=== PATIENT | female | born 1995 | race Caucasian/White ===

== ENCOUNTER 2020-10-04 23:27 | Emergency (ER) | payer MEDICAID, SELFPAY ==
[2020-10-05 00:01] VITALS: BP 122/66; PULSE 77; RESP 18; TEMP 35.7; O2SAT 99; BMI 45.1
[2020-10-05 00:06] VITALS: BP 122/66; PULSE 88; RESP 18; TEMP 35.8; O2SAT 99
[2020-10-05 01:04] LABS: Basophils Absolute Auto 0.1 X10*3/uL (0.0-0.2); Basophils Percent Auto 0.7 % (0-2); Eosinophils Absolute Auto 0.7 X10*3/uL (0.0-0.4); Eosinophils Percent Auto 4.1 % (0-4); Hematocrit 41.5 % (37-47); Hemoglobin 13.4 g/dl (12.0-16.0); Imm Gran Abs Auto 0.05 X10*3/uL (0.00-0.03); Imm Gran Pct Auto 0.3 % (0.0-0.4); Lymphocytes Absolute Auto 5.5 X10*3/uL (1.2-4.9); Lymphocytes Percent Auto 30.4 % (20-40); MANUAL DIFF FLAG SCAN; Mean Corpuscular HGB Conc 32.3 g/dl (31.0-35.0); Mean Corpuscular Hemoglobin 27.5 pg (27.0-33.0); Mean Corpuscular Volume 85.2 fL (80-98); Mean Platelet Volume 10.5 fL (9.4-12.3); Monocytes Absolute Auto 1.5 X10*3/uL (0.1-1.2); Monocytes Percent Auto 8.1 % (2-11); Neutrophils Absolute Auto 10.1 X10*3/uL (2.0-8.3); Neutrophils Percent Auto 56.4 % (45-73); Platelet Count 364 X10*3/uL (160-400); Red Blood Count 4.87 X10*6/uL (4.20-5.50); Red Cell Distribution Width 12.5 % (11.0-16.0); SCAN SMEAR FLAG 1
[2020-10-05 01:25] LABS: Glucose Urine UA NEG (NEG); Leukocyte Esterase Urine TRACE (NEG); Nitrite Urine NEG (NEG); Specific Gravity - Urine >= 1.030 (1.005-1.025); Urine Blood NEG (NEG); Urine Ketones NEG (NEG); Urine Protein NEG (NEG-TRACE)
[2020-10-05 01:27] LABS: Alanine Aminotransferase 19 U/L (0-31); Albumin Level 3.9 g/dL (3.5-5.0); Alkaline Phosphatase 56 U/L (39-117); Anion Gap 10 (12-20); Aspartate Amino Transferase 12 U/L (5-31); Bilirubin Direct < 0.2 mg/dL (0.0-0.5); Bilirubin Total 0.2 mg/dL (0.0-1.0); Blood Urea Nitrogen 14 mg/dL (9-16); Calcium 9.1 mg/dL (8.4-10.2); Carbon Dioxide 29 mmol/L (22-29); Chloride 104 mmol/L (96-108); Creatinine Clr Calc Pharmacy 130.9; Estimated Glomerular Filt Rate > 60; Glucose Random 96 mg/dL (60-115); Lipase 23 U/L (8-78); Potassium 4.3 mmol/l (3.3-5.1); SLIDE REVIEW VERIFIED; Sodium 139 mmol/L (135-145); Total Protein 7.1 g/dL (6.5-8.0)
[2020-10-05 01:28] LABS: Appearance Urine HAZY; Color Urine YELLOW; UPreg QC Valid YES; Urine Pregnancy NEGATIVE (NEGATIVE)
[2020-10-05 01:32] LABS: Bacteria Urine 2+ /LPF; RBC Urine 0 /HPF (0); Squamous Epithelial Cell Urine 2+ /LPF; WBC Urine 50-75 /HPF (0-4)
--- NOTE | 2020-10-05 01:51 | XR_ITS ---
EXAMINATION: XR CHEST CLINICAL INFORMATION: Right lower pain COMPARISON: None TECHNIQUE: 2 views of the chest were obtained. FINDINGS: The lungs are well expanded. There is no focal consolidation, edema, or effusion. No pneumothorax. The cardiomediastinal silhouette is within normal limits. No acute osseous abnormality. XR/XR chest 2V IMPRESSION: No acute pulmonary finding.
--- NOTE | 2020-10-05 02:38 | ED_ITS ---
HPI - Back Pain/Injury General Chief Complaint: Back Pain/Injury Stated Complaint: Back pain Time Seen by Provider: 10/05/20 00:28 Source: patient Mode of arrival: ambulatory History of Present Illness HPI Narrative: 25-year-old female with right-sided back pain for the past 2-3 days. Denies urinary symptoms denies fevers or chills denies nausea or vomiting. Patient states pain is intermittent however sometimes dispositional. Denies vaginal bleeding or discharge MD elicited complaint: back pain Onset (ago): day(s) Severity: moderate Related Data Previous Rx's Medication Instructions Recorded levofloxacin 750 mg PO DAILY 7 Days #7 tab 10/05/20 naproxen [Naprosyn] 500 mg PO BID PRN #10 tab 10/05/20 ondansetron 4 mg PO BID PRN 4 Days #8 tab 10/05/20 Allergies Allergy/AdvReac Type Severity Reaction Status Date / Time No Known Allergies Allergy Verified 10/05/20 00:00 [No Known Allergies*] Review of Systems Review of Systems: Constitutional : No Weight loss, No Fever, No Chills, No Night Sweats, No Fatigue, No Malaise ENT/Mouth : No Hearing loss, No Ear Pain, No Nasal Congestion, No Sinus Pain, No Hoarseness, No sore throat, No Rhinorrhea, No Swallowing Difficulty Eyes: No Eye Pain, No Swelling, No Redness, No Foreign Body, No Discharge, No Vision Changes Cardiovascular : No Chest Pain, No SOB, No Dyspnea on Exertion, No Orthopnea, No Edema, No Palpitations Respiratory : No Cough, No Sputum, No Wheezing, No Smoke Exposure, No Dyspnea Gastrointestinal : No Nausea, No Vomiting, No Diarrhea, No Constipation, No abdominal Pain, No Hematochezia, No Melena Genitourinary : no irregular bleeding, No Dysuria, No Urinary Frequency, No Hematuria, No Urinary Incontinence, No Urgency, No Flank Pain, No Urinary Flow Changes, No Hesitancy Back: Right-sided tenderness CVA Musculoskeletal : No joint pain, No Myalgias, No Joint Swelling Skin : No Skin Lesions, No rash Neuro : No Weakness, No Numbness, No Paresthesias, No Loss of Consciousness, No Dizziness, No Headache Psych : No Anxiety/Panic, No Depression, No SI/HI/AH/VH, No Social Issues, Heme/Lymph: No Bruising, No Bleeding,No Lymphadenopathy Endocrine : No Polyuria, No Polydipsia, No Temperature Intolerance COUNTS INCLUDE 234 BEDS AT THE [facility] Past Medical History Medical History No known health problems Family History Family History (Updated 10/05/20 @ 02:47 by Baldo Sprague DO) Other Family history non-contributory Social History Social History Alcohol intake: never Smoking Status: Current every day smoker Use of substances other than those prescribed or required for medical reasons: No Advance Directives: No Physical Exam Vital Signs: Vital Signs: Last Vital Signs Temp 96.4 F L 10/05/20 00:06 Pulse 88 10/05/20 00:06 Resp 18 10/05/20 00:06 BP 122/66 10/05/20 00:06 Pulse Ox 99 10/05/20 00:06 Body Mass Index 45.1 Vital signs reviewed Appearance: Alert. Oriented X3. No acute distress. Eyes: Pupils equal, round and reactive to light. ENT: Pharynx normal. Neck: Normal inspection. Neck supple. No lymph nodes noted. No crepitus CVS: Normal heart rate and rhythm. Pulses normal. Normal S1 and S2 Respiratory: No respiratory distress. Breath sounds normal. No Wheezing. No rales Abdomen: Soft and nontender. No rigidity. No distention. good BS x4 Skin: Skin warm and dry. Normal skin color. Normal skin turgor. Extremities: No lower extremity edema. Neurovascular intact to all extremities. No Lacerations. No Rash Neuro: Oriented X 3. No motor deficit. No sensory deficit. Moving all extermities. No slurred speech. Back: Positive CVA tenderness on the right. No abscess no ecchymosis. No erythema Course Course Course Narrative: Patient tolerating p.o. intake no fevers no chills nausea nausea no vomiting while in the emergency department MDM - Back Pain/Injury MDM Narrative Medical decision making narrative: 25-year-old female with right flank pain positive urine for UTI and leukocytosis. Patient looks very well tolerating p.o. so on phone sitting up bedside. I discussed with patient need for antibi otics patient states wants to go home. Patient looks well however I did describe reasons to return to the emergency department. Lab Data Attestation: I reviewed the patient's lab results. Result diagrams: 10/05/20 00:55 10/05/20 00:55 Labs: Lab Results 10/05/20 10/05/20 10/05/20 Range/Units 00:55 00:55 00:55 WBC 18.0 H (4.8-10.8) X10*3/uL RBC 4.87 (4.20-5.50) X10*6/uL Hgb 13.4 (12.0-16.0) g/dl Hct 41.5 (37-47) % MCV 85.2 (80-98) fL MCH 27.5 (27.0-33.0) pg MCHC 32.3 (31.0-35.0) g/dl RDW 12.5 (11.0-16.0) % Plt Count 364 (160-400) X10*3/uL MPV 10.5 (9.4-12.3) fL Immature Gran % (Auto) 0.3 (0.0-0.4) % Neut % (Auto) 56.4 (45-73) % Lymph % (Auto) 30.4 (20-40) % [place] % (Auto) 8.1 (2-11) % Eos % (Auto) 4.1 H (0-4) % Baso % (Auto) 0.7 (0-2) % Lymph # (Auto) 5.5 H (1.2-4.9) X10*3/uL [place] # (Auto) 1.5 H (0.1-1.2) X10*3/uL Eos # (Auto) 0.7 H (0.0-0.4) X10*3/uL Baso # (Auto) 0.1 (0.0-0.2) X10*3/uL Abs Immat Gran (auto) 0.05 H (0.00-0.03) X10*3/uL Absolute Neuts (auto) 10.1 H (2.0-8.3) X10*3/uL Absolute Nucleated RBC 0.000 (0.0-0.012) X10*3/uL Nucleated RBC % (auto) 0.0 (0.0-0.2) /100WBC Smear Tech's Comments VERIFIED Sodium 139 (135-145) mmol/L Potassium 4.3 (3.3-5.1) mmol/l Chloride 104 (96-108) mmol/L Carbon Dioxide 29 (22-29) mmol/L Anion Gap 10 L (12-20) BUN 14 (9-16) mg/dL Creatinine 0.88 (0.5-1.4) mg/dL Estim Creat Clear Calc 130.9 Estimated GFR > 60 Random Glucose 96 (60-115) mg/dL Calcium 9.1 (8.4-10.2) mg/dL Total Bilirubin 0.2 (0.0-1.0) mg/dL Direct Bilirubin < 0.2 (0.0-0.5) mg/dL AST 12 (5-31) U/L ALT 19 (0-31) U/L Alkaline Phosphatase 56 (39-117) U/L Total Protein 7.1 (6.5-8.0) g/dL Albumin 3.9 (3.5-5.0) g/dL Lipase 23 (8-78) U/L Urine Color YELLOW Urine Appearance HAZY Urine pH 6.0 (5.0-8.0) Ur Specific [place] >= 1.030 H (1.005-1.025) Urine Protein NEG (NEG-TRACE) MG/DL Urine Glucose (UA) NEG (NEG) MG/DL Urine Ketones NEG (NEG) MG/DL Urine Blood NEG (NEG) Urine Nitrite NEG (NEG) Ur Leukocyte Esterase TRACE H (NEG) Urine RBC 0 (0) /HPF Urine WBC 50-75 H (0-4) /HPF Ur Squamous Epith Cells 2+ /LPF Urine Bacteria 2+ /LPF Urine Test NEGATIVE (NEGATIVE) Discharge Plan Discharge Clinical Impression: Pyelonephritis Patient Disposition: Home, Self-Care Instructions: Kidney Infection (ED) Additional Instructions: Thank you for visiting the emergency department today. If your symptoms worsen or do not resolve completely please return to the emergency department immediately or call 911. if he have any questions please call your primary care physician Prescriptions: New levofloxacin 750 mg tablet 750 mg PO DAILY 7 Days Qty: 7 RF: 0 ondansetron 4 mg tablet,disintegrating 4 mg PO BID PRN (Reason: nausea and vomiting) 4 Days Qty: 8 RF: 0 naproxen [Naprosyn] 500 mg tablet 500 mg PO BID PRN (Reason: pain) Qty: 10 RF: 0 Referrals: [facility] [Provider Group] - 2 days
[2020-10-05] MEDS: levoFLOXacin 750 MG TABLET PO (02:59)
== END 2020-10-05 03:03 | disposition home or self-care (01) ==
PROVIDERS: Emergency Provider Emergency Medicine
DX: N10 Acute pyelonephritis (principal); F17.200 Nicotine dependence, unspecified, uncomplicated; Z71.6 Tobacco abuse counseling; Z79.899 Other long term (current) drug therapy
CPT/HCPCS: 36415; 71046; 80048; 80076; 81001; 81003; 81025; 83690; 85025; 87086; 87088; 87186; 99284

== ENCOUNTER 2022-04-27 21:56 | Emergency (ER) | payer OTHER, SELFPAY ==
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
[2022-04-27 22:00] VITALS: BP 149/87; PULSE 88; RESP 18; TEMP 36.8; O2SAT 99; BMI 46.7
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
== END 2022-04-28 00:37 | disposition home or self-care (01) ==
PROVIDERS: Emergency Provider Emergency Medicine
DX: S80.01XA Contusion of right knee, initial encounter (principal); V43.52XA Car driver injured in collision with other type car in traffic accident, initial encounter; M54.50 Low back pain, unspecified; Y93.89 Activity, other specified; Y92.414 Local residential or business street as the place of occurrence of the external cause; Y99.9 Unspecified external cause status
CPT/HCPCS: 73560; 99283

== ENCOUNTER 2022-11-02 12:27 | Emergency (ER) | payer MEDICAID, SELFPAY ==
--- NOTE | ~2022-11-02 | XR_ITS ---
EXAMINATION: XR CHEST CLINICAL INFORMATION: Cough. Pneumonia. COMPARISON: 10/05/2020 TECHNIQUE: Frontal view of the chest was obtained. FINDINGS: The lungs are well expanded. There is no focal consolidation, edema, or effusion. No pneumothorax. The cardiomediastinal silhouette is within normal limits. No acute osseous abnormality. XR/XR chest 1V IMPRESSION: Clear lungs.
[2022-11-02 12:55] VITALS: BP 153/83; PULSE 86; RESP 20; TEMP 37.3; O2SAT 99; BMI 46.7
--- NOTE | 2022-11-02 13:01 | ED.GENADULT ---
HPI - General Adult General Chief complaint: Upper Respiratory Symptoms <ROSA Leon Last Filed: 11/06/22 12:30> Stated complaint: quest respit infection, feels faint when coughing <ROSA Leon Last Filed: 11/06/22 12:30> Time Seen by Provider: 11/02/22 14:14 <ROSA Leon - Last Filed: 11/06/22 12:30> Source: patient <ROSA Veloz Last Filed: 11/02/22 15:59> Mode of arrival: ambulatory <ROSA Veloz Last Filed: 11/02/22 15:59> Limitations: no limitations <ROSA Veloz Last Filed: 11/02/22 15:59> History of Present Illness HPI narrative: 27-year-old female presenting to the ED with complaints of subjective fever/chills/fatigue/ malaise, cough nonproductive with chest pain / tightness with shortness of breath for the past 3 days worse today. She denies any recent travel or sick contacts, measured fevers, dizziness, neck pain /stiffness, headaches, nasal congestion /rhinorrhea, sore throat, ear pain, dyspnea on exertion, orthopnea, palpitations, paresthesias, N/V/D, abd pain, back pain, lower extremity edema or calf tenderness, hypercoagulation disorder, history of DVT or PE, recent surgery, recent trauma, any estrogen uses or any other symptoms complaints or concerns at this time. <ROSA Veloz Last Filed: 11/02/22 15:59> MD complaint: Cough/shortness of breath /chest pain <ROSA Veloz Last Filed: 11/02/22 15:59> Onset (ago): day(s) (3) <ROSA Veloz Last Filed: 11/02/22 15:59> Related Data Home medications: Previous Rx's Medication Instructions Recorded levofloxacin 750 mg tablet 750 mg PO DAILY 7 days #7 tabs 10/05/20 naproxen 500 mg tablet (Naprosyn) 500 mg PO BID PRN pain #10 tabs 10/05/20 ondansetron 4 mg disintegrating 4 mg PO BID PRN nausea and 10/05/20 tablet vomiting 4 days #8 tabs albuterol sulfate 90 mcg/actuation 1 inh inhalation QID PRN shortness 11/02/22 aerosol inhaler of breath or wheezing #8.5 grams codeine 10 mg-guaifenesin 100 mg/5 5 ml PO Q6H PRN cold symptoms #120 11/02/22 mL oral liquid (Guaifenesin AC) mL oseltamivir 75 mg capsule (Tamiflu) 75 mg PO BID 5 days #10 caps 11/02/22 <ROSA Leon - Last Filed: 11/06/22 12:30> Allergies/adverse reactions: Allergies Allergy/AdvReac Type Severity Reaction Status Date / Time No Known Allergies Allergy Verified 04/27/22 22:00 [No Known Allergies*] <ROSA Leon - Last Filed: 11/06/22 12:30> Review of Systems Review of Systems: Constitutional : + subjective fevers/ chills/fatigue/malaise, No Weight loss, No Night Sweats ENT/Mouth : No Hearing loss, No Ear Pain, No Nasal Congestion, No Sinus Pain, No Hoarseness, No sore throat, No Rhinorrhea, No Swallowing Difficulty Eyes: No Eye Pain, No Swelling, No Redness, No Foreign Body, No Discharge, No Vision Changes Cardiovascular : + Chest Pain, + SOB, No Dyspnea on Exertion, No Orthopnea, No Edema, No Palpitations Respiratory : + Cough, No Sputum, No Wheezing, No Smoke Exposure, No Dyspnea Gastrointestinal : No Nausea, No Vomiting, No Diarrhea, No Constipation, No abdominal Pain, No Hematochezia, No Melena Genitourinary : no irregular bleeding, No Dysuria, No Urinary Frequency, No Hematuria, No Urinary Incontinence, No Urgency, No Flank Pain, No Urinary Flow Changes, No Hesitancy Musculoskeletal : No joint pain, + Myalgias, No Joint Swelling Skin : No Skin Lesions, No rash Neuro : No Weakness, No Numbness, No Paresthesias, No Loss of Consciousness, No Dizziness, No Headache Psych : No Anxiety/Panic, No Depression, No SI/HI/AH/VH, No Social Issues, Heme/Lymph: No Bruising, No Bleeding,No Lymphadenopathy Endocrine : No Polyuria, No Polydipsia, No Temperature Intolerance <ROSA Veloz - Last Filed: 11/02/22 15:59> Yes all other systems are reviewed and are negative <ROSA Veloz - Last Filed: 11/02/22 15:59> [facility] [place] Past Medical History Attestation statement: The following information was validated with the patient. <ROSA Veloz - Last Filed: 11/02/22 15:59> Source: old records reviewed and nursing notes reviewed <ROSA Veloz - Last Filed: 11/02/22 15:59> Medical History: Medical History No known health problems <ROSA Leon - Last Filed: 11/06/22 12:30> Family History Family History: Family History Other Family history non-contributory <ROSA Leon - Last Filed: 11/06/22 12:30> Social History Social History: Social History Alcohol intake: never Advance Directives: No <ROSA Leon - Last Filed: 11/06/22 12:30> Physical Exam ED Vital Signs: Vital Signs - 24 hr 11/02/22 12:55 Temperature 99.2 F Pulse Rate 86 Respiratory Rate 20 Blood Pressure 153/83 H Pulse Oximetry 99 Oxygen Delivery Method Room Air BMI result Body Mass Index 46.7 <ROSA Leon - Last Filed: 11/06/22 12:30> Vital Signs - 24 hr 11/02/22 12:55 Temperature 99.2 F Pulse Rate 86 Respiratory Rate 20 Blood Pressure 153/83 H Pulse Oximetry 99 Oxygen Delivery Method Room Air BMI result Body Mass Index 46.7 vital signs have been reviewed as normal and appeared to be correct. Blood pressure 151/83. Heart rate normal. Respiration rate normal. Temperature normal. Oxygen saturation normal. <ROSA Veloz - Last Filed: 11/02/22 15:59> Appearance: Alert. Oriented X3. No acute distress. Head: Normal external exam. Normocephalic. Atraumatic. Eyes: PERRLA. EOMI. Conjunctiva and sclera normal. Eyelids normal. ENT: EAC normal. TM's Normal. Pharynx normal. Uvula midline. Moist mucous membranes. No lesions/ulcerations or masses noted on the tongue. Normal voice. No trismus noted. No drooling noted. No muffled voice noted. Neck: Normal inspection. Neck supple. FROM. No adenopathy. Thyroid Normal. No tracheal deviation noted. No crepitus is noted. No meningeal signs. No neck mass noted. No signs of trauma noted. CVS: Normal heart rate and rhythm. Heart sound normal. Pulses normal throughout. No murmurs/rales/gallops. Respiratory: No respiratory distress. Painless inspiration. Breath sounds normal. No wheezes/rales/rhonchi noted. Chest nontender. No crepitus is noted. No signs of trauma noted. No accessory muscle usage noted or decreased air movement noted. No signs of trauma. Abdomen: Soft and nontender. Bowel sounds normal in all 4 quadrants. No distention noted. No organomegaly noted. No visible injury noted. Back: No CVA tenderness. Full range of motion noted. Nontender. No signs of trauma. Patient neuro intact bilaterally and distally on all 4 extremities. Patient's reflexes intact bilaterally and distally on all 4 extremities. No rashes/lesion/induration/fluctuance or signs of infection noted. Skin: Skin warm and dry. Normal skin color. Normal skin turgor. No rashes/lesions/lacerations noted. Extremities: No lower extremity edema. No calf tenderness is noted. Extremities exhibit normal range of motion and nontender. Neuro: Oriented X 3. No motor deficit. No sensory deficit. Reflexes normal. Normal steady gait. No focal neuro deficits noted. CN's II-XII intact bilaterally? Vascular: + radial pulses/+ 2 distal pedal pulses/+2 dorsalis pedis b/l. Normal cap refill. No cyanosis noted to upper extremity nails and lower extremity toes nails. <ROSA Veloz - Last Filed: 11/02/22 15:59> Course Course Course Narrative: RME: 27 yold female presents to the ED for coughing, congesions for the past 3 days. patient denies any leg swelling, calf pain, fever, chest pain, chest pain on inspiration, or shorntess of breath. patient states coughing white phelghm and coughing hard. Chest xray and SARS ordered. EKG ordered and labs due to patient stating near syncope from coughing so hard <ROSA Leon - Last Filed: 11/06/22 12:30> Reevaluation(s) Reevaluation #1: 27-year-old female presenting to the ED with complaints of subjective fever/chills/fatigue/ malaise, cough nonproductive with chest pain / tightness with shortness of breath for the past 3 days worse today. She denies any recent travel or sick contacts, measured fevers, dizziness, neck pain /stiffness, headaches, nasal congestion /rhinorrhea, sore throat, ear pain, dyspnea on exertion, orthopnea, palpitations, paresthesias, N/V/D, abd pain, back pain, lower extremity edema or calf tenderness, hypercoagulation disorder, history of DVT or PE, recent surgery, recent trauma, any estrogen uses or any other symptoms complaints or concerns at this time. PERC score negative. Labs obtained while the patient was in the waiting room and reveals a chronic leukocytosis of 13,000 at this time. Random glucose 122. Troponin is negative. UA within normal limits no evidence of UTI. Patient negative for . Chest x-ray negative. EKG normal sinus rhythm with ventricular rate of 87 with a normal NC interval normal QRS duration normal QT/ QTC interval. No acute ischemic change noted. No prior EKGs to compare to at this time. And pending COVID/RSV /flu swab. If negative patient most likely bronchitis. Will DC home with symptomatic treatment instructions return if any new or worsening symptoms follow up with primary care provider. Patient understands agrees with this plan. <ROSA Veloz - Last Filed: 11/02/22 15:59> Time: 15:50 <ROSA Veloz - Last Filed: 11/02/22 15:59> Medical Decision Making Lab Data MDM Lab Attestation statement: I reviewed the patient's lab results. <ROSA Veloz - Last Filed: 11/02/22 15:59> Result Diagrams: : 11/02/22 14:56 11/02/22 14:56 <ROSA Leon - Last Filed: 11/06/22 12:30> Labs: Lab Results 11/02/22 11/02/22 11/02/22 Range/Units 14:56 14:56 14:56 WBC 13.2 H (4.8-10.8) X10*3/uL RBC 5.15 (4.20-5.50) X10*6/uL Hgb 13.5 (12.0-16.0) g/dl Hct 43.3 (37.0-47.0) % MCV 84.1 (80.0-98.0) fL MCH 26.2 L (27.0-33.0) pg MCHC 31.2 (31.0-35.0) g/dl RDW 13.2 (11.0-16.0) % Plt Count 252 (160-400) X10*3/uL MPV 11.2 (9.4-12.3) fL Immature Gran % (Auto) 0.4 (0.0-0.4) % Neut % (Auto) 76.0 H (45-73) % Lymph % (Auto) 13.7 L (20-40) % [place] % (Auto) 7.2 (2-11) % Eos % (Auto) 1.7 (0-4) % Baso % (Auto) 1.0 (0-2) % Lymph # (Auto) 1.8 (1.2-4.9) X10*3/uL [place] # (Auto) 1.0 (0.1-1.2) X10*3/uL Eos # (Auto) 0.2 (0.0-0.4) X10*3/uL Baso # (Auto) 0.1 (0.0-0.2) X10*3/uL Abs Immat Gran (auto) 0.05 H (0.00-0.03) X10*3/uL Absolute Neuts (auto) 10.0 H (2.0-8.3) x10*3/uL Absolute Nucleated RBC 0.000 (0.0-0.012) X10*3/uL Nucleated RBC % (auto) 0.0 (0.0-0.2) /100WBC PT (10.0-13.1) SEC INR (0.9-1.1) APTT (26.0-36.4) SEC Sodium 141 (135-145) mmol/L Potassium 4.0 (3.3-5.1) mmol/L Chloride 105 (96-108) mmol/L Carbon Dioxide 27 (22-29) mmol/L Anion Gap 13 (12-20) BUN 11 (9-16) mg/dL Creatinine 0.80 (0.5-1.4) mg/dL Estim Creat Clear Calc 144.4 Estimated GFR > 60 Random Glucose 122 H (60-115) mg/dL Calcium 9.1 (8.4-10.2) mg/dL Total Bilirubin 0.2 (0.0-1.0) mg/dL AST 15 (5-31) U/L ALT 26 (0-31) U/L Alkaline Phosphatase 65 (39-117) U/L Troponin I High Sens (<3.5-17.0) ng/L Total Protein 7.2 (6.5-8.0) g/dL Albumin 3.9 (3.5-5.0) g/dL Urine Color Urine Appearance Urine pH (5.0-9.0) Ur Specific [place] (1.005-1.025) Urine Protein (Neg-Trace) mg/dL Urine Glucose (UA) (Negative) mg/dL Urine Ketones (Negative) mg/dL Urine Blood (Negative) Urine Nitrite (Negative) Ur Leukocyte Esterase (Negative) Urine Test (NEGATIVE) Influenza Type A (PCR) POSITIVE A (Negative) Influenza Type B (PCR) NEGATIVE (Negative) RSV RNA Qual (PCR) NEGATIVE (Negative) SARS-CoV-2 RNA (RT-PCR) NEGATIVE (Negative) 11/02/22 11/02/22 11/02/22 Range/Units 14:56 14:56 14:56 WBC (4.8-10.8) X10*3/uL RBC (4.20-5.50) X10*6/uL Hgb (12.0-16.0) g/dl Hct (37.0-47.0) % MCV (80.0-98.0) fL MCH (27.0-33.0) pg MCHC (31.0-35.0) g/dl RDW (11.0-16.0) % Plt Count (160-400) X10*3/uL MPV (9.4-12.3) fL Immature Gran % (Auto) (0.0-0.4) % Neut % (Auto) (45-73) % Lymph % (Auto) (20-40) % [place] % (Auto) (2-11) % Eos % (Auto) (0-4) % Baso % (Auto) (0-2) % Lymph # (Auto) (1.2-4.9) X10*3/uL [place] # (Auto) (0.1-1.2) X10*3/uL Eos # (Auto) (0.0-0.4) X10*3/uL Baso # (Auto) (0.0-0.2) X10*3/uL Abs Immat Gran (auto) (0.00-0.03) X10*3/uL Absolute Neuts (auto) (2.0-8.3) x10*3/uL Absolute Nucleated RBC (0.0-0.012) X10*3/uL Nucleated RBC % (auto) (0.0-0.2) /100WBC PT (10.0-13.1) SEC INR (0.9-1.1) APTT (26.0-36.4) SEC Sodium (135-145) mmol/L Potassium (3.3-5.1) mmol/L Chloride (96-108) mmol/L Carbon Dioxide (22-29) mmol/L Anion Gap (12-20) BUN (9-16) mg/dL Creatinine (0.5-1.4) mg/dL Estim Creat Clear Calc Estimated GFR Random Glucose (60-115) mg/dL Calcium (8.4-10.2) mg/dL Total Bilirubin (0.0-1.0) mg/dL AST (5-31) U/L ALT (0-31) U/L Alkaline Phosphatase (39-117) U/L Troponin I High Sens < 3.5 (<3.5-17.0) ng/L Total Protein (6.5-8.0) g/dL Albumin (3.5-5.0) g/dL Urine Color Yellow Urine Appearance Clear Urine pH 7.0 (5.0-9.0) Ur Specific [place] 1.020 (1.005-1.025) Urine Protein Negative (Neg-Trace) mg/dL Urine Glucose (UA) Negative (Negative) mg/dL Urine Ketones Negative (Negative) mg/dL Urine Blood Negative (Negative) Urine Nitrite Negative (Negative) Ur Leukocyte Esterase Negative (Negative) Urine Test NEGATIVE (NEGATIVE) Influenza Type A (PCR) (Negative) Influenza Type B (PCR) (Negative) RSV RNA Qual (PCR) (Negative) SARS-CoV-2 RNA (RT-PCR) (Negative) 11/02/22 Range/Units 15:21 WBC (4.8-10.8) X10*3/uL RBC (4.20-5.50) X10*6/uL Hgb (12.0-16.0) g/dl Hct (37.0-47.0) % MCV (80.0-98.0) fL MCH (27.0-33.0) pg MCHC (31.0-35.0) g/dl RDW (11.0-16.0) % Plt Count (160-400) X10*3/uL MPV (9.4-12.3) fL Immature Gran % (Auto) (0.0-0.4) % Neut % (Auto) (45-73) % Lymph % (Auto) (20-40) % [place] % (Auto) (2-11) % Eos % (Auto) (0-4) % Baso % (Auto) (0-2) % Lymph # (Auto) (1.2-4.9) X10*3/uL [place] # (Auto) (0.1-1.2) X10*3/uL Eos # (Auto) (0.0-0.4) X10*3/uL Baso # (Auto) (0.0-0.2) X10*3/uL Abs Immat Gran (auto) (0.00-0.03) X10*3/uL Absolute Neuts (auto) (2.0-8.3) x10*3/uL Absolute Nucleated RBC (0.0-0.012) X10*3/uL Nucleated RBC % (auto) (0.0-0.2) /100WBC PT 11.6 (10.0-13.1) SEC INR 1.0 (0.9-1.1) APTT 30.0 (26.0-36.4) SEC Sodium (135-145) mmol/L Potassium (3.3-5.1) mmol/L Chloride (96-108) mmol/L Carbon Dioxide (22-29) mmol/L Anion Gap (12-20) BUN (9-16) mg/dL Creatinine (0.5-1.4) mg/dL Estim Creat Clear Calc Estimated GFR Random Glucose (60-115) mg/dL Calcium (8.4-10.2) mg/dL Total Bilirubin (0.0-1.0) mg/dL AST (5-31) U/L ALT (0-31) U/L Alkaline Phosphatase (39-117) U/L Troponin I High Sens (<3.5-17.0) ng/L Total Protein (6.5-8.0) g/dL Albumin (3.5-5.0) g/dL Urine Color Urine Appearance Urine pH (5.0-9.0) Ur Specific [place] (1.005-1.025) Urine Protein (Neg-Trace) mg/dL Urine Glucose (UA) (Negative) mg/dL Urine Ketones (Negative) mg/dL Urine Blood (Negative) Urine Nitrite (Negative) Ur Leukocyte Esterase (Negative) Urine Test (NEGATIVE) Influenza Type A (PCR) (Negative) Influenza Type B (PCR) (Negative) RSV RNA Qual (PCR) (Negative) SARS-CoV-2 RNA (RT-PCR) (Negative) <ORSA Leon - Last Filed: 11/06/22 12:30> Lab Results 11/02/22 11/02/22 11/02/22 Range/Units 14:56 14:56 14:56 WBC 13.2 H (4.8-10.8) X10*3/uL RBC 5.15 (4.20-5.50) X10*6/uL Hgb 13.5 (12.0-16.0) g/dl Hct 43.3 (37.0-47.0) % MCV 84.1 (80.0-98.0) fL MCH 26.2 L (27.0-33.0) pg MCHC 31.2 (31.0-35.0) g/dl RDW 13.2 (11.0-16.0) % Plt Count 252 (160-400) X10*3/uL MPV 11.2 (9.4-12.3) fL Immature Gran % (Auto) 0.4 (0.0-0.4) % Neut % (Auto) 76.0 H (45-73) % Lymph % (Auto) 13.7 L (20-40) % [place] % (Auto) 7.2 (2-11) % Eos % (Auto) 1.7 (0-4) % Baso % (Auto) 1.0 (0-2) % Lymph # (Auto) 1.8 (1.2-4.9) X10*3/uL [place] # (Auto) 1.0 (0.1-1.2) X10*3/uL Eos # (Auto) 0.2 (0.0-0.4) X10*3/uL Baso # (Auto) 0.1 (0.0-0.2) X10*3/uL Abs Immat Gran (auto) 0.05 H (0.00-0.03) X10*3/uL Absolute Neuts (auto) 10.0 H (2.0-8.3) x10*3/uL Absolute Nucleated RBC 0.000 (0.0-0.012) X10*3/uL Nucleated RBC % (auto) 0.0 (0.0-0.2) /100WBC PT (10.0-13.1) SEC INR (0.9-1.1) APTT (26.0-36.4) SEC Sodium 141 (135-145) mmol/L Potassium 4.0 (3.3-5.1) mmol/L Chloride 105 (96-108) mmol/L Carbon Dioxide 27 (22-29) mmol/L Anion Gap 13 (12-20) BUN 11 (9-16) mg/dL Creatinine 0.80 (0.5-1.4) mg/dL Estim Creat Clear Calc 144.4 Estimated GFR > 60 Random Glucose 122 H (60-115) mg/dL Calcium 9.1 (8.4-10.2) mg/dL Total Bilirubin 0.2 (0.0-1.0) mg/dL AST 15 (5-31) U/L ALT 26 (0-31) U/L Alkaline Phosphatase 65 (39-117) U/L Troponin I High Sens (<3.5-17.0) ng/L Total Protein 7.2 (6.5-8.0) g/dL Albumin 3.9 (3.5-5.0) g/dL Urine Color Urine Appearance Urine pH (5.0-9.0) Ur Specific [place] (1.005-1.025) Urine Protein (Neg-Trace) mg/dL Urine Glucose (UA) (Negative) mg/dL Urine Ketones (Negative) mg/dL Urine Blood (Negative) Urine Nitrite (Negative) Ur Leukocyte Esterase (Negative) Urine Test (NEGATIVE) Influenza Type A (PCR) POSITIVE A (Negative) Influenza Type B (PCR) NEGATIVE (Negative) RSV RNA Qual (PCR) NEGATIVE (Negative) SARS-CoV-2 RNA (RT-PCR) NEGATIVE (Negative) 11/02/22 11/02/22 11/02/22 Range/Units 14:56 14:56 14:56 WBC (4.8-10.8) X10*3/uL RBC (4.20-5.50) X10*6/uL Hgb (12.0-16.0) g/dl Hct (37.0-47.0) % MCV (80.0-98.0) fL MCH (27.0-33.0) pg MCHC (31.0-35.0) g/dl RDW (11.0-16.0) % Plt Count (160-400) X10*3/uL MPV (9.4-12.3) fL Immature Gran % (Auto) (0.0-0.4) % Neut % (Auto) (45-73) % Lymph % (Auto) (20-40) % [place] % (Auto) (2-11) % Eos % (Auto) (0-4) % Baso % (Auto) (0-2) % Lymph # (Auto) (1.2-4.9) X10*3/uL [place] # (Auto) (0.1-1.2) X10*3/uL Eos # (Auto) (0.0-0.4) X10*3/uL Baso # (Auto) (0.0-0.2) X10*3/uL Abs Immat Gran (auto) (0.00-0.03) X10*3/uL Absolute Neuts (auto) (2.0-8.3) x10*3/uL Absolute Nucleated RBC (0.0-0.012) X10*3/uL Nucleated RBC % (auto) (0.0-0.2) /100WBC PT (10.0-13.1) SEC INR (0.9-1.1) APTT (26.0-36.4) SEC Sodium (135-145) mmol/L Potassium (3.3-5.1) mmol/L Chloride (96-108) mmol/L Carbon Dioxide (22-29) mmol/L Anion Gap (12-20) BUN (9-16) mg/dL Creatinine (0.5-1.4) mg/dL Estim Creat Clear Calc Estimated GFR Random Glucose (60-115) mg/dL Calcium (8.4-10.2) mg/dL Total Bilirubin (0.0-1.0) mg/dL AST (5-31) U/L ALT (0-31) U/L Alkaline Phosphatase (39-117) U/L Troponin I High Sens < 3.5 (<3.5-17.0) ng/L Total Protein (6.5-8.0) g/dL Albumin (3.5-5.0) g/dL Urine Color Yellow Urine Appearance Clear Urine pH 7.0 (5.0-9.0) Ur Specific [place] 1.020 (1.005-1.025) Urine Protein Negative (Neg-Trace) mg/dL Urine Glucose (UA) Negative (Negative) mg/dL Urine Ketones Negative (Negative) mg/dL Urine Blood Negative (Negative) Urine Nitrite Negative (Negative) Ur Leukocyte Esterase Negative (Negative) Urine Test NEGATIVE (NEGATIVE) Influenza Type A (PCR) (Negative) Influenza Type B (PCR) (Negative) RSV RNA Qual (PCR) (Negative) SARS-CoV-2 RNA (RT-PCR) (Negative) 11/02/22 Range/Units 15:21 WBC (4.8-10.8) X10*3/uL RBC (4.20-5.50) X10*6/uL Hgb (12.0-16.0) g/dl Hct (37.0-47.0) % MCV (80.0-98.0) fL MCH (27.0-33.0) pg MCHC (31.0-35.0) g/dl RDW (11.0-16.0) % Plt Count (160-400) X10*3/uL MPV (9.4-12.3) fL Immature Gran % (Auto) (0.0-0.4) % Neut % (Auto) (45-73) % Lymph % (Auto) (20-40) % [place] % (Auto) (2-11) % Eos % (Auto) (0-4) % Baso % (Auto) (0-2) % Lymph # (Auto) (1.2-4.9) X10*3/uL [place] # (Auto) (0.1-1.2) X10*3/uL Eos # (Auto) (0.0-0.4) X10*3/uL Baso # (Auto) (0.0-0.2) X10*3/uL Abs Immat Gran (auto) (0.00-0.03) X10*3/uL Absolute Neuts (auto) (2.0-8.3) x10*3/uL Absolute Nucleated RBC (0.0-0.012) X10*3/uL Nucleated RBC % (auto) (0.0-0.2) /100WBC PT 11.6 (10.0-13.1) SEC INR 1.0 (0.9-1.1) APTT 30.0 (26.0-36.4) SEC Sodium (135-145) mmol/L Potassium (3.3-5.1) mmol/L Chloride (96-108) mmol/L Carbon Dioxide (22-29) mmol/L Anion Gap (12-20) BUN (9-16) mg/dL Creatinine (0.5-1.4) mg/dL Estim Creat Clear Calc Estimated GFR Random Glucose (60-115) mg/dL Calcium (8.4-10.2) mg/dL Total Bilirubin (0.0-1.0) mg/dL AST (5-31) U/L ALT (0-31) U/L Alkaline Phosphatase (39-117) U/L Troponin I High Sens (<3.5-17.0) ng/L Total Protein (6.5-8.0) g/dL Albumin (3.5-5.0) g/dL Urine Color Urine Appearance Urine pH (5.0-9.0) Ur Specific [place] (1.005-1.025) Urine Protein (Neg-Trace) mg/dL Urine Glucose (UA) (Negative) mg/dL Urine Ketones (Negative) mg/dL Urine Blood (Negative) Urine Nitrite (Negative) Ur Leukocyte Esterase (Negative) Urine Test (NEGATIVE) Influenza Type A (PCR) (Negative) Influenza Type B (PCR) (Negative) RSV RNA Qual (PCR) (Negative) SARS-CoV-2 RNA (RT-PCR) (Negative) <ROSA Veloz - Last Filed: 11/02/22 15:59> Independent Interpretation Interpretation: Chest x-ray FINDINGS: The lungs are well expanded. There is no focal consolidation, edema, or effusion. No pneumothorax. The cardiomediastinal silhouette is within normal limits. No acute osseous abnormality. XR/XR chest 1V IMPRESSION: Clear lungs EKG normal sinus rhythm ventricular rate of 87 with a normal NC interval normal QRS duration normal QT/ QTC interval no acute ischemic change are noted. No prior EKGs to compare to at this time. <ROSA Veloz - Last Filed: 11/02/22 15:59> Critical Care Time Critical Care Time Critical Care Time: Yes <ROSA Veloz - Last Filed: 11/02/22 15:59> Total Critical Care Time: 60 <ROSA Veloz - Last Filed: 11/02/22 15:59> Attestation: I personally attest to this time spent taking care of the patient <ROSA Veloz - Last Filed: 11/02/22 15:59> Discharge Plan Discharge Clinical Impression: Influenza A <ROSA Leon Last Filed: 11/06/22 12:30> Patient Disposition: Home, Self-Care <ROSA Leon Last Filed: 11/06/22 12:30> Instructions: Influenza (ED), Droplet Precautions (ED) <ROSA Leon Last Filed: 11/06/22 12:30> Prescriptions: New oseltamivir [Tamiflu] 75 mg capsule 75 mg PO BID 5 Days Qty: 10 0RF albuterol sulfate 90 mcg/actuation HFA aerosol inhaler 1 inh inhalation QID PRN (Reason: shortness of breath or wheezing) Qty: 8.5 0RF codeine-guaifenesin [Guaifenesin AC] 10-100 mg/5 mL liquid 5 ml PO Q6H PRN (Reason: cold symptoms) Qty: 120 0RF No Action levofloxacin 750 mg tablet 750 mg PO DAILY 7 Days Qty: 7 0RF ondansetron 4 mg tablet,disintegrating 4 mg PO BID PRN (Reason: nausea and vomiting) 4 Days Qty: 8 0RF naproxen [Naprosyn] 500 mg tablet 500 mg PO BID PRN (Reason: pain) Qty: 10 0RF <ROSA Leon - Last Filed: 11/06/22 12:30> Referrals: Physician,None [Primary Care Provider] - ( follow-up with her primary care provider within the next 5 days) <ROSA Leon - Last Filed: 11/06/22 12:30> Stand Alone Forms: Work/School Release <ROSA Leon - Last Filed: 11/06/22 12:30> Interventions: ED Discharge Assessment Last Done: 11/02/22 16:44 <ROSA Leon - Last Filed: 11/06/22 12:30> Discharge Date/Time: 11/02/22 16:45 <ROSA Leon - Last Filed: 11/06/22 12:30>
--- NOTE | 2022-11-02 13:03 | ECG_ITS ---
Test Reason : SOB Blood Pressure : / mmHG Vent. Rate : 087 BPM Atrial Rate : 087 BPM P-R Int : 154 ms QRS Dur : 086 ms QT Int : 356 ms P-R-T Axes : 006 083 027 degrees QTc Int : 428 ms Normal sinus rhythm Normal ECG No previous ECGs available Referred By: Dion Fernandez Electronically Signed By:Jake Haas
--- OUTSIDE RECORDS SUMMARY | 2022-11-02 14:04 | XMS_ITS ---
:1995 Author Care Team Providers Name Role Phone LindyEdwinna Dakota Primary Care Provider Unavailable Allergies Code Code System Name Reaction Severity Status Onset NKDA ? Medications Name Status Start Date Stop Date ? ? amoxicillin 875 mg-potassium clavulanate 125 mg Completed ? 09/19/2021 tablet cephalexin 500 mg capsule Completed ? 2020 clindamycin HCl 150 mg capsule Completed ? 1 11/19/2020 dicloxacillin 500 mg capsule Completed ? 02/2021 erythromycin-benzoyl peroxide 3 %-5 % topical gel Completed ? 09/19/2021 APPLY ONCE TO TWICE DAILY TO FACE NEEDED hydroxyzine HCl 25 mg tablet Completed ? 12/2020 ibuprofen 600 mg tablet Completed ? 09/19/2012/01 (21) 1 mg-20 mcg tablet Completed 10/13/2021 01/30/2022 Keflex Completed ? 09/19/2021 linoleic acid-sunflower oil Completed ? 12/2020 Mibelas 24 Fe 1 mg-20 mcg (24)/75 mg (4) chewable tablet Active ? Not available CHEW 1 TABLET BY MOUTH EVERY DAY ondansetron 4 mg disintegrating tablet Active ? Not available TAKE 1 TABLET (4 MG TOTAL) BY MOUTH 3 ( THREE) TIMES A DAY NEEDED FOR NAUSEA FOR UP TO 7 DAYS. Completed ? 01/30/2022 Problems Name Status Onset Date Source ? Unknown 01/18/2021 ? Spinal Muscular Atrophy Unknown 02/15/2021 ? SARS-CoV-2 Active 02/28/2021 ? 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 Mastitis Associated with Active 09/18/2021 ? Procedures Date Name Performed by ? ? Shoulder Joint Surgery Information not a vailable Notes: 2016 left Results Lab Results Date Name Specimen Result Interpretation Description Value Range Status Address ? 08/29/2021 SARS CoV 2 RNA NASAL SWAB ? Sars Cov not not [facility]: (COVID-19), 2 [facility] , Respiratory [place] Specimen 08/22/2021 SARS CoV 2 RNA NASAL SWAB ? Sars Cov not not [facility]: (COVID-19), 2 RNA detected detected 7 0 [facility], track coach-PCR, Road , Respiratory [place] Specimen 08/15/2021 SARS CoV 2 RNA Nasopharyn Normal Sars Cov not not [facility] (COVID-19), geal 2 RNA detected detected D iagnostic QL, track coach-PCR, s- Respiratory Mar[place] oroug Specimen h Lab: [address] [place] [address], [place] 08/10/2021 SARS CoV 2 RNA NASAL SWAB ? Sars Cov not not [facility]: (COVID-19), 2 RNA detected detected 7 0 [facility], track coach-PCR, Road , Respiratory [place] Specimen 08/01/2021 Streptococcus VAG/REC ? Group B negative negative [facility]: [facility] ? ? V[facility]/REC ? Group B vaginal ? [facility]: Strep [address] [place] Source [facility] 06/06/2021 HIV 1+2 AB + SERUM ? HIV 1/2 non-react non-react [facility]: HIV 1 P24 Ag, Antigen merrick merrick 70 [facility], [facility] Serum 06/06/2021 RPR (Rapid SERUM ? T. 0.05 non-react [facility]: Plasma Pallidum non-react merrick S/co [address] [place] Reagin), Serum Ab merrcik S/co [facility] 06/06/2021 CBC W/ Auto WHOLE ? White 7.6 4.0-11.0 [facility]: Diff BLOOD Blood thou[facility]uL [facility] ? ? WHOLE Low Red 3.97 4.00-5.40 [facility] : BLOOD Blood mil/uL mil/uL 70 [facility] ? ? WHOLE ? Hemoglob 11.8 g/dL 11.7-15.7 [facility]: BLOOD in g/dL 70 [facility] ? ? WHOLE ? Hematocr 39.8 % 35.0-47.0 [facility]: BLOOD it % [address], [place] ? ? WHOLE ? Mean 100 fL 80-100 fL [facility] : BLOOD Corpuscul [address], [place] ? ? WHOLE ? Mean 29.7 pg 26.0-34.0 [facility]: BLOOD Corpuscul pg [address], Hemoglobi [facility] ? ? WHOLE Low Mean 29.6 g/dL 30.0-36.0 [facility]: BLOOD Corpuscul g/dL [address], Hemoglobi [facility] Concentra tion ? ? WHOLE ? Red Cell 13.0 % 11.5-14.5 [facility]: BLOOD Distribut % [address], [place] ? ? WHOLE ? Platelet 199 150-450 [facility]: BLOOD s thou/uL thou/uL [address], [place] ? ? WHOLE ? Mean 10.3 fL 9.4-12.5 [facility] : BLOOD Platelet fL [address], [place] ? ? WHOLE ? Neutroph 75.2 % ? [facility] : BLOOD il, [address], e [place] ? ? WHOLE ? Lymphocy 18.1 % ? [facility] : BLOOD te, [address], e [place] ? ? WHOLE ? Monocyte 4.7 % ? [facility] : BLOOD , [address], e [place] ? ? WHOLE ? Eosinoph 0.9 % ? [facility] : BLOOD il, [address], e [place] ? ? WHOLE ? Basophil 0.4 % ? [facility] : BLOOD , [address], e [place] ? ? WHOLE ? Neutroph 5.74 2.00-7.50 [facility]: BLOOD il, thou/uL thou/uL [address], [place] ? ? WHOLE Low Lymphocy 1.38 1.50-4.50 [facility]: BLOOD te, thou/uL thou/uL [address], [place] ? ? WHOLE ? Monocyte 0.36 0.20-1.50 [facility]: BLOOD , thou/uL thou/uL [address], [place] ? ? WHOLE ? Eosinoph 0.07 0.00-0.70 [facility]: BLOOD il, thou/uL thou/uL [address], [place] ? ? WHOLE ? Basophil 0.03 0.00-0.20 [facility]: BLOOD , thou/uL thou/uL [address], [place] ? ? WHOLE ? NRBC, 0.00 0.00-0.02 [facility] : BLOOD Absolute thou/uL thou/uL [address], [place] ? ? WHOLE ? NRBC, 0.0 % <5.0 % [facility]: BLOOD Percentag [address], [place] ? ? WHOLE ? Ig, 0.05 0.00-0.10 [facility] : BLOOD Absolute thou/uL thou/uL [address], [place] ? ? WHOLE ? Ig, 0.7 ? [facility]: BLOOD Percentag thou/uL [address], [place] 06/06/2021 Glucose SERUM ? Pwh 81 mg/dL <136 [facility]: Tolerance Glucose mg/dL [address], Gestation Road, Gestational, al Screen R [facility] 1-Hour 135 02/16/2021 Kit,fly ? Kit,miguel report ? Final [facility] ra will BE Hospital & sent Medical directly Center: from [facility] fly to [facility] office. Agapito valencia 02/16/2021 Genetic Normal Report negative ? Final Na enrrique: Screen, Summary [address], [place] ? ? Normal Spinal negative ? Final Fly: Muscular [address], [place] ? ? ? Panel see notes ? Final Fly: Notes [address], [place] ? ? ? Report see notes ? Final Fly : Note [address], [place] ? ? ? Footnote see notes ? Final Miguel ra: s [address], [place] 02/01/2021 Kit,fly ? Kit,miguel report ? Final [facility] ra will BE Hospital & sent Medical directly Center: from 114 fly to [facility]' , s office. Agapito valencia 02/01/2021 Chromosome Normal Report see notes ? Final Fly: 13+18+21+X+Y Summary 201 Aneuploidy, Indus trial Blood [address], [place] ? ? Normal Report see notes ? Final Fly : Note [address], [place] ? ? Normal Trisomy 62 ? Final Fly: 13 (0.02%) 201 Age-based Industr ial Risk Text Rd [address], [place] ? ? Normal Trisomy <1/10,000 ? Final Nater a: 13 Risk (<0.01%) [address], [place] ? ? Normal Trisomy low risk ? Final Fly : 13 Result [address], [place] ? ? Normal Trisomy 765 ? Final Fly: 18 (0.06%) 201 Age-based Industr ial Risk Text [address], [place] ? ? Normal Trisomy <1/10,000 ? Final Nater a: 18 Risk (<0.01%) [address], [place] ? ? Normal Trisomy low risk ? Final Fly : 18 Result [address], [place] ? ? Normal Trisomy 870 ? Final Fly: 21 (0.11%) 201 Age-based Industr ial Risk Text [address], [place] ? ? Normal Trisomy <1/10,000 ? Final Nater a: 21 Risk (<0.01%) [address], [place] ? ? Normal Trisomy low risk ? Final Fly : 21 Result [address], [place] ? ? Normal Monosomy 1/255 ? Final Fly: X (0.39%) 201 Age-based Industr ial Risk Text [address], [place] ? ? Normal Monosomy <1/10,000 ? Final Miguel ra: X Risk (<0.01%) [address], [place] ? ? Normal Monosomy low risk ? Final Nater a: X Result [address], [place] ? ? Normal 22Q11.2 11/13,000 ? Final Fly: Deletion [address], [place] Risk Text [place] ? ? Normal 22Q11.2 /,000 ? Final Fly: Deletion [address] Score [address], [place] Text [place] ? ? Normal 22Q11.2 low risk ? Final Fly : Deletion [address] Text [address], [place] ? ? Normal Triploid low risk ? Final Nater a: y Result [address], [place] ? ? ? Gender female ? Final Fly: of Fetus [address], [place] ? ? ? 6.8% ? Final Fly: Fraction [address], [place] ? ? ? Footnote see notes ? Final Miguel ra: s [address], [place] 02/01/2021 Genetic ABNORM Report positive ? Final Na enrrique: Screen, AL Summary [address], [place] ? ? ABNORM Spinal positive ? Final Fly: AL Muscular [address], [place] ? ? Normal Alpha-th negative ? Final Nater a: alassemia [address], [place] ? ? Normal Beta-hem negative ? Final Nater a: oglobinop [address], [place] ? ? Normal Andrews negative ? Final Fly : Disease [address], [place] ? ? Normal Cystic negative ? Final Fly: Fibrosis [address], [place] ? ? Normal Duchenne negative ? Final Nater a: /saleh [address], [place] ? ? Normal Familial negative ? Final Nater a: Dysautono [address], [place] ? ? Normal Fragile negative ? Final Fly : X [address], [place] ? ? Normal Galactos negative ? Final Nater a: emia [address], [place] ? ? Normal Gaucher negative ? Final Fly : Disease [address], [place] ? ? Normal Medium negative ? Final Fly: Chain [address] Acyl-coa [address], [place] Deficienc [place] y ? ? Normal Polycyst negative ? Final Nater a: ic Kidney 201 Disease, [address] al [address] Recessive [address], [place] n [place] ? ? Normal [place]-le negative ? Final Nater a: mli-opitz [address], [place] ? ? Normal Saleem-sach negative ? Final Nater a: s Disease [address], [place] ? ? ? Panel see notes ? Final Fly: Notes [address], [place] ? ? ? Report see notes ? Final Fly : Note [address], [place] ? ? ? Footnote see notes ? Final Miguel ra: s [address], [place] 01/18/2021 CBC W/ Auto WHOLE ? White 5.7 4.0-11.0 [facility]: Diff BLOOD Blood thou/uL thou/uL [facility] ? ? WHOLE ? Red 4.48 4.00-5.40 [facility] : BLOOD Blood mil/uL mil/uL 70 [facility] ? ? WHOLE ? Hemoglob 13.4 g/dL 11.7-15.7 Final hc Lab: BLOOD in g/dL 70 [facility] ? ? WHOLE ? Hematocr 42.4 % 35.0-47.0 [facility]: BLOOD it % 70 [facility] ? ? WHOLE ? Mean 95 fL 80-100 fL [facility] : BLOOD Corpuscul [address] [facility] ? ? WHOLE ? Mean 29.9 pg 26.0-34.0 [facility] b: BLOOD Corpuscul pg [address], Hemoglobi [facility] ? ? WHOLE ? Mean 31.6 g/dL 30.0-36.0 [facility]: BLOOD Corpuscul g/dL [address], Hemoglobi [facility] Concentra tion ? ? WHOLE ? Red Cell 12.3 % 11.5-14.5 [facility]: BLOOD Distribut % 70 [address] ion Width [facility] ? ? WHOLE ? Platelet 232 150-450 [facility]: BLOOD s thou/uL thou/uL [facility] ? ? WHOLE ? Mean 10.1 fL 9.4-12.5 [facility] : BLOOD Platelet fL [address], [place] ? ? WHOLE ? Neutroph 72.1 % ? [facility] : BLOOD il, [address], e [place] ? ? WHOLE ? Lymphocy 22.0 % ? [facility] : BLOOD te, [address], [place] ? ? WHOLE ? Monocyte 4.2 % ? [facility] : BLOOD , [address], e [place] ? ? WHOLE ? Eosinoph 0.9 % ? [facility] : BLOOD il, [address], e [place] ? ? WHOLE ? Basophil 0.4 % ? [facility] : BLOOD , [address], e [place] ? ? WHOLE ? Neutroph 4.11 2.00-7.50 [facility]: BLOOD il, thou/uL thou/uL [address], [place] ? ? WHOLE Low Lymphocy 1.25 1.50-4.50 [facility]: BLOOD te, thou/uL thou/uL [address], [place] ? ? WHOLE ? Monocyte 0.24 0.20-1.50 [facility]: BLOOD , thou/uL thou/uL [address], [place] ? ? WHOLE ? Eosinoph 0.05 0.00-0.70 [facility]: BLOOD il, thou/uL thou/uL [address], [place] ? ? WHOLE ? Basophil 0.02 0.00-0.20 [facility]: BLOOD , thou/uL thou/uL [address], [place] ? ? WHOLE ? NRBC, 0.00 0.00-0.02 [facility] : BLOOD Absolute thou/uL thou/uL [address], [place] ? ? WHOLE ? NRBC, 0.0 % <5.0 % [facility]: BLOOD Percentag [address], [place] ? ? WHOLE ? Ig, 0.02 0.00-0.10 [facility] : BLOOD Absolute thou/uL thou/uL [address], [place] ? ? WHOLE ? Ig, 0.4 ? [facility]: BLOOD Percentag thou/uL [address], [place] 01/18/2021 HBsAg SERUM ? Hepatiti non-react non-react Angela l [facility]: (Hepatitis B s B merrick merrick [address] Surface Ag), Surface Valentino d, Confirmation, Antigen Ro [facility] Serum 01/18/2021 HIV 1+2 AB + SERUM ? HIV 1/2 non-react non-react [facility]: HIV 1 P24 Ag, Antigen merrick merrick [address], Immunoassay, [facility] Serum 01/18/2021 Hepatitis C SERUM ? Hepatiti 0.55 non-react [facility]: Ab, Serum s C Ab non-react merrick S/co [address] [place] Reflex merrick S/co Road, HCV PCR [facility] l Quant 01/18/2021 RPR (Rapid SERUM ? T. 0.06 non-react [facility]: Plasma Pallidum non-react merrick S/co [address] [place] [address]agin), Serum Ab merrick S/co Road, [place] 01/18/2021 Rubella Igg Ab SERUM Low Rubella 0.7 ai >0.9 ai Fi [facility]: Screen, Serum Antibody 7 0 [place] [facility] 01/[facility]21 Urinalysis, Urine Normal Color yellow yellow Final Q uest Complete clean Diagnost ic catch s- [place] Lab: [address] [place] [address], [place] ? ? Urine Normal Appearan clear clear [facility] clean ce Diagnostic catch s- [place] Lab: [address] [place] [address], [place] ? ? Urine Normal Specific 1.022 1.001-1.0 Final Ques t clean [place] 35 Diagnosti c catch s- [place] Lab: [address] [place] [address], [place] ? ? Urine Normal Ph 6.5 5.0-8.0 [facility] clean Diagnostic catch s- [place] Lab: [address], [place] ? ? Urine Normal Glucose negative negative Final Ques t clean Diagnostic catch s- [place] Lab: [address], [place] ? ? Urine Normal Bilirubi negative negative Final Que st clean n Diagnostic catch s- [place] Lab: [address] [address], [place] ? ? Urine Normal Ketones negative negative Final Ques t clean Diagnostic catch s- [place] Lab: [address] [address], [place] ? ? Urine Normal Occult negative negative [facility] clean Blood Diagnostic catch s- [place] [facility]: [address] [place] [address], [place] ? ? Urine Normal Protein negative negative Final Ques t clean Diagnostic catch s- [place] Lab: [address], [place] ? ? Urine Normal Nitrite negative negative Final Ques t clean Diagnostic catch s- [place] Lab: [address], [place] ? ? Urine Normal Leukocyt negative negative Final Que st clean e Diagnostic catch Esterase s- [place] Lab: [address], [place] ? ? Urine Normal Wbc none seen < or = 5 [facility] clean /hpf /hpf Diagnostic catch s- [place] Lab: [address] [place] [address], [place] ? ? Urine Normal Rbc none seen < or = 2 [facility] clean /hpf /hpf Diagnostic catch s- [place] Lab: [address] [address], [place] ? ? Urine Normal Squamous none seen < or = 5 Final Qu est clean Epithelia /hpf /hpf Diagnos tic catch l Cells s- [place] Lab: [address] [address], [place] ? ? Urine Normal Bacteria none seen none seen Final Q uest clean /hpf /hpf Diagnostic catch s- [place] Lab: [address], [place] ? ? Urine Normal Hyaline none seen none seen Final Qu est clean Cast /lpf /lpf Diagnostic catch s- [place] Lab: [address], [place] 01/18/2021 Culture, Urine URINE ? Urine urine, ? Final [facility]: Source clean [address], [place] ? ? URINE ? Micro sterile ? Final [facility]: Culture or <1,000 [address] Result col/mL. Road, [place] 01/18/2021 Pap, LB + HPV THINPREP ? Report report ? Fin al [facility] [place] 01/18/2021 Chlamydia Sp GENITAL ? Chlamydi negative negative [facility]: DNA, a [address] [place] Unspecified Trachomat Ro ad, Specimen is RNA, [place] [facility] 01/18/2021 NG DNA, PCR, GENITAL ? Neisseri negative negative [facility]: Unspecified a [address], ae RNA, [place] [facility] 01/04/2021 Blood Group PLASMA ? Bb no ? Final [facility]: Antibody Patient previous [address] [place] Screen, Serum History whct Ro ad, or Plasma Check history. [place] ? ? PLASMA ? Blood O ? Final [facility]: Type [address] [place] Interpret [facility], ion [place] ? ? PLASMA ? Rh positive ? [facility]: Interpret 70 [address] [facility], [place] ? ? PLASMA ? Antibody negative negative [facility]: Screen [address], [facility] [place] [facility] 01/04/2021 beta-HCG, SERUM High Beta 27446 <5 mIU/mL [facility]: Quantitative, HCG, mIU/mL [address] [place] Serum or Quantitat [facility], Plasma merrick [place] Past Encounters Encounter Date Diagnosis Provider 01/30/2022 Gynecologic Examination; Screening Stormy Beatty, DO: [address] [place] for Malignant Neoplasm of Breast; [place], [place] Diet Education; Exercises Education, [facility] [phone], Ph. Guidance, and Counseling 10/13/2021 Care Erik Fernandes O: [address] [facility], [place] [address], Ph. 09/19/2021 Pruritic Rash; Mastitis Associated Stormy Beatty, DO: [address] [place] with [place], [place] [phone], Ph. 09/15/2021 Mastitis Associated with ; Anthony Beatty, DO: [address] [place] Generalized Rash [place], [place] [address] 72-[address], Ph. 09/07/2021 Acute Mastitis Coby Israel MD: 19 [place] [address], Ph. 08/30/2021 Gestation Period, 40 Weeks Marcela sol, DO: 19 [facility], [place] [address], Ph. 08/29/2021 Gestation Period, 39 Weeks; Routine [facility] mickey Martinez MD: Care [address] [place] [address], Ph. [phone] 08/25/2021 Routine Care; Gestation Nerissa Martinez MD: Period, 39 Weeks 19 [facility] [place] [address], Ph. 08/22/2021 Routine Care; Gestation Nerissa Martinez MD: Period, 38 Weeks [address] [place] [address], Ph. [phone] 08/15/2021 Erik Fernandes O: [address], [place] [address], Ph. 08/10/2021 Coby Israel MD: [address], [place] [address], Ph. [phone] 08/01/2021 Screening Coby Israel MD: [address], [place] [address], Ph. 07/22/2021 Keiry Atwood MD : [address] [place] [address], Ph. 07/07/2021 Adriana Yin MD: [address] [place] [address], Ph. 06/20/2021 Routine Care; Gestation Sarah Guy MD: 31 Period, 29 Weeks [place] [facility], [place] [address], Ph. 06/06/2021 Adriana Yin MD: 3 [address] [place] [facility], [place] [address], Ph. 05/24/2021 Routine Care; Gestation Siddharth Choi MD: 31 Period, 26 Weeks [place] [facility], [place] [address], Ph. [phone] Social History Tobacco Smoking Status Never Smoker Vaccine List Vaccine Type COVID-19 (SARS-COV-2) vaccine, unspecifi ed 11/20/2020 12/11/2020 Influenza, injectable, MDCK, preservativ e free, quadrivalent 08/25/2021?0.5 mL Tdap 06/06/2021?0.5 mL Notes: pfizer Plan of Care Reminders Provider Appointments None recorded. ? ? Lab None recorded. ? ? Referral None recorded. ? ? Procedures None recorded. ? ? Surgeries None recorded. ? ? Imaging None recorded. ? ? Vitals 01/30/2022 10:30AM ANNUAL PIEROGI MAKER 15 Height Weight BMI Blood Pressure 5 ft 7 in 142 lbs 22.2 kg/m2 120/74 mm[Hg] 10/13/2021 11:45AM VISIT 15 Height Weight BMI Blood Pressure 5 ft 7 in 155 lbs 24.3 kg/m2 120/82 mm[Hg] 09/19/2021 12:15PM PROBLEM VISIT 15 Height Weight BMI Blood Pressure 5 ft 7 in 122/74 mm[Hg] 09/15/2021 12:15PM BREAST CHECK 15 Height Blood Pressure 5 ft 7 in 110/70 mm[Hg] 09/07/2021 10:30AM PROBLEM VISIT 15 Height Weight BMI Blood Pressure 5 ft 7 in 168 lbs 26.3 kg/m2 116/68 mm[Hg] 08/30/2021 12:00PM OB PROBLEM VISIT 15 Weight 179 lbs 08/29/2021 11:30AM OB VISIT 15 Weight Blood Pressure 179 lbs 124/80 mm[Hg] 08/25/2021 11:30AM OB PROBLEM VISIT 15 Height Weight BMI Blood Pressure 5 ft 7 in 177 lbs 27.7 kg/m2 128/80 mm[Hg] 08/22/2021 09:45AM OB VISIT 15 Weight Blood Pressure 175 lbs 120/70 mm[Hg] 08/15/2021 08:45AM OB VISIT 15 Weight Blood Pressure 174 lbs 118/64 mm[Hg] 08/10/2021 09:15AM OB VISIT 15 Height Weight Blood Pressure 5 ft 7 in 173 lbs 118/68 mm[Hg] 08/01/2021 09:15AM OB VISIT 15 Weight Blood Pressure 171 lbs 116/68 mm[Hg] 07/22/2021 03:30PM OB VISIT 15 Height Weight BMI Blood Pressure 5 ft 7 in 171 lbs 26.8 kg/m2 122/78 mm[Hg] 07/07/2021 10:30AM OB VISIT 15 Height Weight BMI Blood Pressure 5 ft 7 in 170 lbs 26.6 kg/m2 116/70 mm[Hg] 06/20/2021 02:15PM OB VISIT 15 Weight Blood Pressure 168 lbs 110/60 mm[Hg] 06/06/2021 08:45AM OB VISIT 15 Weight Blood Pressure 167 lbs 116/74 mm[Hg] 05/24/2021 10:45AM OB VISIT 15 Weight Blood Pressure 164 lbs 116/68 mm[Hg] 04/26/2021 08:45AM OB VISIT 15 Weight Blood Pressure 162 lbs 118/64 mm[Hg] 03/28/2021 10:15AM OB VISIT 15 Weight Blood Pressure 155 lbs 110/62 mm[Hg] 02/28/2021 10:45AM OB VISIT 15 Weight Blood Pressure 149 lbs 114/60 mm[Hg] 02/01/2021 10:45AM OB VISIT 15 Weight Blood Pressure 149 lbs 118/64 mm[Hg] 01/18/2021 08:30AM NEW PT VISIT 30 Height Weight BMI Blood Pressure 5 ft 7 in 149 lbs 23.3 kg/m2 112/72 mm[Hg]
--- OUTSIDE RECORDS SUMMARY | 2022-11-02 14:04 | XMS_ITS | Continuity of Care Document ---
:1995 Author Organization [facility] Address [address] [place] [address]- Care Team Providers Name Role Phone Not on Staff, PCP Primary Care Physician Unavailable Encounter [facility] Date(s): 04/09/21 - 04/09/[address] [address]- Discharge Disposition: A-D/C Home Attending Physician: Tere Stafford MD Admitting Physician: Tere Stafford MD Referring Physician: Not on Staff, Referring MD Allergies, Adverse Reactions, Alerts Substance Reaction Severity Status NKA Active Immunizations Given and Recorded Vaccine Date Status Refusal Reason tetanus/diphtheria/pertussis, acel(Tdap) 03/03/19 Given tetanus/diphtheria/pertussis, acel(Tdap) 07/14/08 Given influenza virus vaccine, inactivated1 05/17/12 Given diphtheria-tetanus toxoids (DT) 06/09/05 Given Measles/Mumps/Rubella Virus Vaccine 04/06/98 Given Measles/Mumps/Rubella Virus Vaccine 07/01/94 Given Measles/Mumps/Rubella Virus Vaccine2 03/23/94 Given Polio Vaccine, Live (oldterm) 04/06/98 Given Polio Vaccine, Live (oldterm) 10/18/94 Given Polio Vaccine, Live (oldterm) 93 Given Polio Vaccine, Live (oldterm) 93 Given diphtheria/tetanus/pertussis, acel(DTaP) 04/06/98 Given diphtheria/tetanus/pertussis, acel(DTaP) 10/18/94 Given diphtheria/tetanus/pertussis, acel(DTaP) 93 Given diphtheria/tetanus/pertussis, acel(DTaP) 93 Given diphtheria/tetanus/pertussis, acel(DTaP) 93 Given HibTITER (oldterm) 07/11/94 Given HibTITER (oldterm) 93 Given HibTITER (oldterm) 93 Given HibTITER (oldterm) 93 Given hepatitis B adult vaccine 03/23/94 Given hepatitis B adult vaccine 03/23/94 Given hepatitis B adult vaccine 93 Given hepatitis B adult vaccine 93 Given 1Admin Note: VIS [id number] Comment: INTERED IN ERROR Medications control control, Refills 0, Maintenance, 05/29/11 15:50:09 Start Date: 05/29/11 Status: OrderedNexplanon 68 mg subcutaneous implant 1 each = 68 mg, Subcutaneous Infusion, Once, # 1 each, 0 Refills, Soft Stop, 03/03/19 14:04:59 EDT Start Date: 03/03/19 Status: Orderedpenicillin V potassium 500 mg oral tablet 1 tablet = 500 mg, By Mouth, 3 times a day, # 21 tablet, 0 Refills, Maintenance, 04/09/21 22:31:00 EDT, Tablet, [facility]/pharmacy #[id number], Partial fill upon patient request if the prescription is for a schedule II opioid drug. Start Date: 04/09/21 Status: Orderedpenicillin V potassium 500 mg oral tablet 1 tablet = 500 mg, By Mouth, 3 times a day, for 10 days, # 30 tablet, 0 Refills, Acute 04/19/21 22:33:00 EDT, 04/09/21 22:33:00 EDT, Partial fill upon patient request if the prescription is for a schedule II opioid drug. Start Date: 04/09/21 Stop Date: 04/19/21 Status: Ordered Problem List Condition Effective Dates Status Health Status Informant Anterior dislocation of left 10/01/17 Active shoulder(Confirmed)1 Seasonal and perennial allergic Active rhinitis(Confirmed) 1reduced [facility] Vital Signs Most recent to oldest 1 2 3 [Reference Range]: Oxygen Saturation [94-100 %] 99 % 100 % 100 % (04/09/21 10:33 PM) (04/09/21 8:32 PM) (04/09/21 7: 15 PM) Pulse Rate [55-90 bpm] 73 bpm 78 bpm 91 bpm (04/09/21 10:33 PM) (04/09/21 8:32 PM) *H* (04/09/21 7:15 PM ) Blood Pressure [90-138/55-84 107/63 mm Hg 119/76 mm Hg 114 /68 mm Hg mm Hg] (04/09/21 10:33 PM) (04/09/21 8:32 PM) (04/09/21 7: 15 PM) Respiratory Rate [16-30 20 br/min 17 br/min 16 br/mi n br/min] (04/09/21 10:33 PM) (04/09/21 8:32 PM) (04/09/21 7: 15 PM) Temperature [96.8-100.4 DegF] 97.5 DegF 98.2 DegF 98 .3 DegF (04/09/21 10:33 PM) (04/09/21 8:32 PM) (04/09/21 7: 15 PM) Mode of Delivery (Oxygen) Room air Room air Room a ir (04/09/21 10:33 PM) (04/09/21 8:32 PM) (04/09/21 7: 15 PM) Blood pressure sites Arm, right Arm, left Arm, left (04/09/21 10:33 PM) (04/09/21 8:32 PM) (04/09/21 7: 15 PM) Temperature Route Oral Oral Oral (04/09/21 10:33 PM) (04/09/21 8:32 PM) (04/09/21 7: 15 PM) Social History Social History Type Response Smoking Status Never smoker entered on: 02/23/14 Sex
[2022-11-02 15:02] LABS: MANUAL DIFF FLAG NO
[2022-11-02 15:12] LABS: Basophils Absolute Auto 0.1 X10*3/uL (0.0-0.2); Eosinophils Absolute Auto 0.2 X10*3/uL (0.0-0.4); Eosinophils Percent Auto 1.7 % (0-4); Hematocrit 43.3 % (37.0-47.0); Hemoglobin 13.5 g/dl (12.0-16.0); Imm Gran Abs Auto 0.05 X10*3/uL (0.00-0.03); Imm Gran Pct Auto 0.4 % (0.0-0.4); Lymphocytes Absolute Auto 1.8 X10*3/uL (1.2-4.9); Lymphocytes Percent Auto 13.7 % (20-40); Mean Corpuscular HGB Conc 31.2 g/dl (31.0-35.0); Mean Corpuscular Hemoglobin 26.2 pg (27.0-33.0); Mean Corpuscular Volume 84.1 fL (80.0-98.0); Mean Platelet Volume 11.2 fL (9.4-12.3); Monocytes Percent Auto 7.2 % (2-11); Platelet Count 252 X10*3/uL (160-400); Red Blood Count 5.15 X10*6/uL (4.20-5.50); Red Cell Distribution Width 13.2 % (11.0-16.0); White Blood Count 13.2 X10*3/uL (4.8-10.8)
[2022-11-02 15:14] LABS: Appearance Urine Clear; Color Urine Yellow; Glucose Urine UA Negative (Negative); Leukocyte Esterase Urine Negative (Negative); Nitrite Urine Negative (Negative); Urine Blood Negative (Negative); Urine Ketones Negative (Negative); Urine Protein Negative (Neg-Trace)
[2022-11-02 15:25] LABS: Alanine Aminotransferase 26 U/L (0-31); Albumin Level 3.9 g/dL (3.5-5.0); Alkaline Phosphatase 65 U/L (39-117); Anion Gap 13 (12-20); Aspartate Amino Transferase 15 U/L (5-31); Bilirubin Total 0.2 mg/dL (0.0-1.0); Blood Urea Nitrogen 11 mg/dL (9-16); Calcium 9.1 mg/dL (8.4-10.2); Carbon Dioxide 27 mmol/L (22-29); Chloride 105 mmol/L (96-108); Creatinine Clr Calc Pharmacy 144.4; Estimated Glomerular Filt Rate > 60; Glucose Random 122 mg/dL (60-115); Sodium 141 mmol/L (135-145); Total Protein 7.2 g/dL (6.5-8.0)
[2022-11-02 15:33] LABS: Troponin-I High Sensitivity < 3.5 ng/L (<3.5-17.0)
[2022-11-02 15:35] LABS: Prothrombin Time 11.6 SEC (10.0-13.1)
[2022-11-02 15:42] LABS: UPreg QC Valid YES; Urine Pregnancy NEGATIVE (NEGATIVE)
[2022-11-02 15:49] LABS: Influenza A PCR POSITIVE (Negative); Influenza B PCR NEGATIVE (Negative); Resp Syncy Virus RNA Qual PCR NEGATIVE (Negative); SARS COV2 PCR INHOUSE NEGATIVE (Negative)
== END 2022-11-02 16:45 | disposition home or self-care (01) ==
PROVIDERS: Physician Assistant; Physician Assistant Medical; Emergency Provider Emergency Medicine Emergency Medical Services
DX: J11.1 Influenza due to unidentified influenza virus with other respiratory manifestations (principal); R50.9 Fever, unspecified; Z20.822 Contact with and (suspected) exposure to COVID-19
CPT/HCPCS: 0241U; 36415; 71045; 80053; 81003; 81025; 84484; 85025; 85610; 85730; 93005; 99283; 99284

== ENCOUNTER 2023-01-18 16:20 | Emergency (ER) | payer MEDICAID, SELFPAY ==
--- NOTE | ~2023-01-18 | XR_ITS ---
EXAMINATION: XR CHEST CLINICAL INFORMATION: Shortness of breath. COMPARISON: Chest radiograph 11/02/2022. TECHNIQUE: 2 views of the chest were obtained. FINDINGS: No significant abnormality is noted involving the heart, lungs, mediastinum, bony thorax or soft tissues. XR/XR chest 2V IMPRESSION: Unremarkable examination.
[2023-01-18 16:21] VITALS: BP 162/100; PULSE 90; RESP 18; TEMP 36.4; O2SAT 98; BMI 49.7
--- NOTE | 2023-01-18 16:31 | ED_ITS ---
HPI - URI/Sore Throat General Chief Complaint: Upper Respiratory Symptoms <Deidra Melgoza CNP - Last Filed: 01/18/23 16:35> Stated Complaint: Sob,coughing <Deidra Melgoza CNP - Last Filed: 01/18/23 16:35> Time Seen by Provider: 01/18/23 19:02 <Deidra Melgoza CNP - Last Filed: 01/18/23 16:35> Source: patient <ROSA De La Rosa Last Filed: 01/18/23 21:02> Mode of arrival: ambulatory <ROSA De La Rosa Last Filed: 01/18/23 21:02> Limitations: no limitations <ROSA De La Rosa Last Filed: 01/18/23 21:02> History of Present Illness HPI Narrative: This is a 27-year-old female presenting to the emergency department c omplaints of fatigue, malaise, dry cough, sore throat, subjective fevers and chills that started this morning. Patient tells me all the symptoms started suddenly. Patient tells me that she is having shortness of breath when she coughs and at times she feels like she is breathing through a straw. Patient denies chest pain, nausea, vomiting, changes in voice, trouble controlling secretions, headache, vision changes, dizziness, abdominal pain. No known sick contacts. <ROSA De La Rosa Last Filed: 01/18/23 21:02> Related Data Home Medications: Previous Rx's Medication Instructions Recorded levofloxacin 750 mg tablet 750 mg PO DAILY 7 days #7 tabs 10/05/20 naproxen 500 mg tablet (Naprosyn) 500 mg PO BID PRN pain #10 tabs 10/05/20 ondansetron 4 mg disintegrating 4 mg PO BID PRN nausea and 10/05/20 tablet vomiting 4 days #8 tabs albuterol sulfate 90 mcg/actuation 1 inh inhalation QID PRN shortness 11/02/22 aerosol inhaler of breath or wheezing #8.5 grams codeine 10 mg-guaifenesin 100 mg/5 5 ml PO Q6H PRN cold symptoms #120 11/02/22 mL oral liquid (Guaifenesin AC) mL oseltamivir 75 mg capsule (Tamiflu) 75 mg PO BID 5 days #10 caps 11/02/22 albuterol sulfate 90 mcg/actuation 2 inh inhalation Q4-6H PRN 01/18/23 breath activated powder inhaler shortness of breath or wheezing #1 ea amoxicillin 875 mg-potassium 1 tab PO BID 7 days #14 tabs 01/18/23 clavulanate 125 mg tablet benzonatate 100 mg capsule 100 mg PO BID PRN cough #20 caps 01/18/23 prednisone 20 mg tablet 40 mg PO DAILY 5 days #10 tabs 01/18/23 <Deidra Melgoza CNP - Last Filed: 01/18/23 16:35> Allergies/Adverse Reactions: Allergies Allergy/AdvReac Type Severity Reaction Status Date / Time No Known Allergies Allergy Verified 04/27/22 22:00 [No Known Allergies*] <Deidra Melgoza CNP - Last Filed: 01/18/23 16:35> Review of Systems Review of Systems: Constitutional : No Weight loss, No Fever, No Chills, + Fatigue, + Malaise ENT/Mouth : + sore throat, No Rhinorrhea Eyes: No Eye Pain, No Swelling, No Redness Cardiovascular : No Chest Pain, + SOB, No Dyspnea on Exertion, No Orthopnea, No Edema, No Palpitations Respiratory : + Cough, No Sputum, No Wheezing Gastrointestinal : No Nausea, No Vomiting, No Diarrhea, No Constipation, No abdominal Pain, No Hematochezia, No Melena Genitourinary : No Dysuria, No Urinary Frequency, No Hematuria, Musculoskeletal : No joint pain, + Myalgias, No Joint Swelling Skin : No Skin Lesions, No rash Neuro : No Weakness, No Numbness, No Dizziness, No Headache Psych : No Anxiety/Panic, No Depression All other systems reviewed and are negative <ROSA De La Rosa - Last Filed: 01/18/23 21:02> Yes all other systems are reviewed and are negative <ROSA De La Rosa - Last Filed: 01/18/23 21:02> FOR[facility]LY [facility], [facility] Past Medical History Attestation statement: The following information was validated with the patient. <ROSA De La Rosa Last Filed: 01/18/23 21:02> Source: old records reviewed and nursing notes reviewed <ROSA De La Rosa - Last Filed: 01/18/23 21:02> Medical History: Medical History No known health problems <Deidra Melgoza CNP - Last Filed: 01/18/23 16:35> Family History Family History: Family History Other Family history non-contributory <Deidra Melgoza CNP - Last Filed: 01/18/23 16:35> Social History Social History: Social History Alcohol intake: never Advance Directives: No Advance Directives Information Provided: No <Deidra Melgoza CNP - Last Filed: 01/18/23 16:35> Physical Exam Vital Signs: Vital Signs: Last Vital Signs Temp 97.6 F 01/18/23 16:21 Pulse 90 01/18/23 16:21 Resp 18 01/18/23 16:21 BP 162/100 H 01/18/23 16:21 Pulse Ox 98 01/18/23 16:21 O2 Del Method 01/18/23 16:21 BMI result Body Mass Index 49.7 <Deidra Melgoza CNP - Last Filed: 01/18/23 16:35> Vital Signs: Last Vital Signs Temp 97.6 F 01/18/23 16:21 Pulse 90 01/18/23 16:21 Resp 18 01/18/23 16:21 BP 162/100 H 01/18/23 16:21 Pulse Ox 98 01/18/23 16:21 O2 Del Method 01/18/23 16:21 BMI result Body Mass Index 49.7 vss <ROSA De La Rosa - Last Filed: 01/18/23 21:02> Appearance: Alert.? Oriented X3.? No acute distress.? Patient speaking in full sentences, controlling secretions well. Head: Normocephalic, atraumatic, no step-offs or deformities Eyes: Pupils equal, round and reactive to light.? ENT: Pharynx w/ mild swelling and erythema to b/l tonsils, no exudates or evidence of abscess. Uvula midline. No trismus??External ears normal, TMs normal bilaterally and EAC's normal. No pain with manipulation of external ears bilaterally. No mastoid tenderness. Neck: Normal inspection.? Neck supple.? CVS: Normal heart rate and rhythm.? Pulses normal.? Respiratory: No respiratory distress.? Breath sounds normal.? Abdomen: Soft and nontender.? Skin: Skin warm and dry.? Normal skin color.? Normal skin turgor.? Extremities: No lower extremity edema.? No calf ttp. 5/5 strength to bilateral upper and lower extremities Back: No midline tenderness, no C-spine tenderness, full range of motion, no CVA tenderness bilaterally Neuro: Oriented X 3.? No motor deficit.? No sensory deficit. CN 2-12 intact <ROSA De La Rosa - Last Filed: 01/18/23 21:02> Course Course Course Narrative: This is an RME: Additional HPI, ROS, PE not included below will be deferred to primary provider. Patient is a 27-year-old female who presents to the emergency department for evaluation of upper respiratory symptoms. Reports URI symptoms last week, initially began feeling better with OTC cold medications with improvement, but symptoms have become worse again. Reports most notably last night with nausea, cough, shortness of breath ?I could come trying to breathe through a straw?. Denies fevers, chills, known sick contacts. Reports home COVID-19 testing negative. PE: LSCTA, speaking clear full sentences, no increased WOB Plan: viral testing, CXR <Deidra Melgoza CNP - Last Filed: 01/18/23 16:35> Reevaluation(s) Reevaluation #1: Chest x-ray unremarkable. Viral testing unremarkable. At this time patient will be discharged home with doxycycline, prednisone, albuterol inhaler and benzonatate Perles for cough. Educated patient on diagnosis and treatment plan, answered all question, patient verbalizes understanding. At this time patient will be discharged home, advised to return with new or worsening symptoms. Educated on worrisome signs and symptoms and when to return. At this time I feel comfortable discharge home. <ROSA De La Rosa - Last Filed: 01/18/23 21:02> Time: 21:01 <ROSA De La Rosa - Last Filed: 01/18/23 21:02> Medications Administered Discontinued Medications Generic Name Dose Route Start Last Admin Trade Name Freq PRN Reason Stop Dose Admin Acetaminophen 650 mg 01/18/23 20:26 01/18/23 20:42 Acetaminophen 325 Mg Tablet PO 01/18/23 20:27 650 mg ONCE ONE Administration Amoxicillin/Clavulanate Potassium 875 mg 01/18/23 19:36 01/18/23 20:42 Amoxicillin/Potassium Clav 875 Mg Tablet PO 01/18/23 19:37 875 mg ONCE ONE Administration Benzonatate 100 mg 01/18/23 20:26 01/18/23 20:43 Benzonatate 100 Mg Capsule PO 01/18/23 20:27 100 mg ONCE ONE Administration Dexamethasone Sodium Phosphate 10 mg 01/18/23 19:35 01/18/23 20:44 Dexamethasone Sod Phosphate 10 Mg/Ml Vial IVPUSH 01/18/23 19:36 10 mg ONCE ONE Administration <Deidra Melgoza CNP - Last Filed: 01/18/23 16:35> Medications Administered Discontinued Medications Generic Name Dose Route Start Last Admin Trade Name Freq PRN Reason Stop Dose Admin Acetaminophen 650 mg 01/18/23 20:26 01/18/23 20:42 Acetaminophen 325 Mg Tablet PO 01/18/23 20:27 650 mg ONCE ONE Administration Amoxicillin/Clavulanate Potassium 875 mg 01/18/23 19:36 01/18/23 20:42 Amoxicillin/Potassium Clav 875 Mg Tablet PO 01/18/23 19:37 875 mg ONCE ONE Administration Benzonatate 100 mg 01/18/23 20:26 01/18/23 20:43 Benzonatate 100 Mg Capsule PO 01/18/23 20:27 100 mg ONCE ONE Administration Dexamethasone Sodium Phosphate 10 mg 01/18/23 19:35 01/18/23 20:44 Dexamethasone Sod Phosphate 10 Mg/Ml Vial IVPUSH 01/18/23 19:36 10 mg ONCE ONE Administration <ROSA De La Rosa - Last Filed: 01/18/23 21:02> Medical Decision Making Medical Decision Making [facility] Narrative: 1910 27-year-old female presenting for evaluation of body aches, pains, fatigue, malaise, nausea, dry cough, shortness of breath times a week Physical examination significant for Pharynx w/ mild swelling and erythema to b/l tonsils, no exudates or evidence of abscess. Uvula midline. No trismus??External ears normal, TMs normal bilaterally and EAC's normal. No pain with manipulation of external ears bilaterally. No mastoid tenderness. Concerns for possible bronchitis versus viral illness with pharyngitis. Unlikely pneumonia, PE, patient PERC negative. No signs of peritonsillar abscess or epiglottitis. No signs of airway compromise Plan at this time x-ray, viral testing <ROSA De La Rosa - Last Filed: 01/18/23 21:02> Differential Diagnosis Differential Diagnoses: The differential diagnosis associated with the presentation includes <ROSA De La Rosa - Last Filed: 01/18/23 21:02> Concerns for possible bronchitis versus viral illness with pharyngitis. Unlikely pneumonia, PE, patient PERC negative. No signs of peritonsillar abscess or epiglottitis. No signs of airway compromise <ROSA De La Rosa - Last Filed: 01/18/23 21:02> Admission/Observation Consideration of admission/observation: Escalation of care including admission/observation considered <ROSA De La Rosa - Last Filed: 01/18/23 21:02> Unlikely <ROSA De La Rosa - Last Filed: 01/18/23 21:02> Lab Data MDM Lab Attestation statement: I reviewed the patient's lab results. <ROSA De La Rosa - Last Filed: 01/18/23 21:02> Labs: Lab Results 01/18/23 01/18/23 01/18/23 Range/Units 17:42 17:42 20:22 COVID-19 (RHODA) Negative (Negative) COVID-19 Clin Com See Note Monoscreen (Negative) Influenza Type A (FLORENCIO) Negative (Negative) Influenza Type B (FLORENCIO) Negative (Negative) Influenza A & B Note See Note S. pyogenes GrpA FLORENCIO Negative (Negative) 01/18/23 Range/Units 20:22 COVID-19 (RHODA) (Negative) COVID-19 Clin Com Monoscreen Negative (Negative) Influenza Type A (FLORENCIO) (Negative) Influenza Type B (FLORENCIO) (Negative) Influenza A & B Note S. pyogenes GrpA FLORENCIO (Negative) <Deidra Melgoza CNP - Last Filed: 01/18/23 16:35> Lab Results 01/18/23 01/18/23 01/18/23 Range/Units 17:42 17:42 20:22 COVID-19 (RHODA) Negative (Negative) COVID-19 Clin Com See Note Monoscreen (Negative) Influenza Type A (FLORENCIO) Negative (Negative) Influenza Type B (FLORENCIO) Negative (Negative) Influenza A & B Note See Note S. pyogenes GrpA FLORENCIO Negative (Negative) 01/18/23 Range/Units 20:22 COVID-19 (RHODA) (Negative) COVID-19 Clin Com Monoscreen Negative (Negative) Influenza Type A (FLORENCIO) (Negative) Influenza Type B (FLORENCIO) (Negative) Influenza A & B Note S. pyogenes GrpA FLORENCIO (Negative) <ROSA De La Rosa - Last Filed: 01/18/23 21:02> Independent Interpretation I performed an independent interpretation of an: Plain X-Ray (XR/XR chest 2V IMPRESSION: Unremarkable examination.) <ROSA De La Rosa - Last Filed: 01/18/23 21:02> Radiology Impression Discussion of test interpretation with radiology: I have reviewed the radiologist's reading. <ROSA De La Rosa - Last Filed: 01/18/23 21:02> Core Measures AMI core measures followed: Yes <ROSA De La Rosa - Last Filed: 01/18/23 21:02> Measure exclusions: not indicated <ROSA De La Rosa - Last Filed: 01/18/23 21:02> Critical Care Time Critical Care Time Critical Care Time: No <ROSA De La Rosa - Last Filed: 01/18/23 21:02> Discharge Plan Discharge Clinical Impression: Upper respiratory infection, Pharyngitis <Deidra Melgoza CNP - Last Filed: 01/18/23 16:35> Patient Disposition: Home, Self-Care <Deidra Melgoza CNP - Last Filed: 01/18/23 16:35> Instructions: Upper Respiratory Infection (ED), Viral Syndrome (ED) <Deidra Melgoza CNP - Last Filed: 01/18/23 16:35> Additional Instructions: Take your medications as prescribed. If you were prescribed antibiotics today, it is important that you take your medication to their entirety, do not skip any doses, do not finish them early. Follow-up with your primary care provider this week. Return to the emergency department with new or worsening symptoms. Such as fevers, chills, chest pain, shortness of breath, nausea, vomiting, dizziness, headache, vision changes, lethargy, changes in voice, difficulty opening mouth In case of emergency call 911 <Deidra Melgoza CNP - Last Filed: 01/18/23 16:35> Prescriptions: New prednisone 20 mg tablet 40 mg PO DAILY 5 Days Qty: 10 0RF benzonatate 100 mg capsule 100 mg PO BID PRN (Reason: cough) Qty: 20 0RF albuterol sulfate 90 mcg/actuation aerosol powdr breath activated 2 inh inhalation Q4-6H PRN (Reason: shortness of breath or wheezing) Qty: 1 0RF amoxicillin-pot clavulanate 875-125 mg tablet 1 tab PO BID 7 Days Qty: 14 0RF No Action levofloxacin 750 mg tablet 750 mg PO DAILY 7 Days Qty: 7 0RF ondansetron 4 mg tablet,disintegrating 4 mg PO BID PRN (Reason: nausea and vomiting) 4 Days Qty: 8 0RF naproxen [Naprosyn] 500 mg tablet 500 mg PO BID PRN (Reason: pain) Qty: 10 0RF oseltamivir [Tamiflu] 75 mg capsule 75 mg PO BID 5 Days Qty: 10 0RF albuterol sulfate 90 mcg/actuation HFA aerosol inhaler 1 inh inhalation QID PRN (Reason: shortness of breath or wheezing) Qty: 8.5 0RF codeine-guaifenesin [Guaifenesin AC] 10-100 mg/5 mL liquid 5 ml PO Q6H PRN (Reason: cold symptoms) Qty: 120 0RF <Deidra Melgoza CNP - Last Filed: 01/18/23 16:35> Referrals: Physician,None [Primary Care Provider] - 2 days <Deidra Melgoza CNP - Last Filed: 01/18/23 16:35> Stand Alone Forms: Work/School Release <Deidra Melgoza, [employer] HELPER - Last Filed: 01/18/23 16:35>
[2023-01-18 18:24] LABS: COVID-19 Test Negative (Negative); IDNOW Serial# 55D5AD1C; IDNOW Serial# 9DB6401D; Influenza A Negative (Negative); Influenza B2 Negative (Negative)
[2023-01-18 20:39] LABS: IDNOW Serial# 6674DD1D; Strep A Nucleic Acid Negative (Negative)
[2023-01-18] MEDS: Acetaminophen 325 MG TABLET 650 MG PO (20:42)
[2023-01-18] MEDS: Amoxicillin/Potassium Clav 875 MG TABLET PO (20:42)
[2023-01-18] MEDS: Benzonatate 100 MG CAPSULE PO (20:43)
[2023-01-18] MEDS: dexAMETHasone sod phosphate 10 MG/ML VIAL IVPUSH (20:44)
[2023-01-18 20:57] LABS: Monotest Negative (Negative)
== END 2023-01-18 21:29 | disposition home or self-care (01) ==
PROVIDERS: Nurse Practitioner Family; Physician Assistant; Emergency Provider Internal Medicine
DX: J06.9 Acute upper respiratory infection, unspecified (principal); J02.9 Acute pharyngitis, unspecified; R06.02 Shortness of breath; R05.9 Cough, unspecified; J02.8 Acute pharyngitis due to other specified organisms; R50.9 Fever, unspecified; Z20.822 Contact with and (suspected) exposure to COVID-19; Z20.828 Contact with and (suspected) exposure to other viral communicable diseases; Z79.899 Other long term (current) drug therapy
CPT/HCPCS: 36415; 71046; 86308; 87502; 87635; 87651; 99282; 99283; J1100

== ENCOUNTER 2023-11-22 19:45 | Emergency (ER) | payer MEDICAID, SELFPAY ==
[2023-11-22 19:56] VITALS: BP 150/88; PULSE 80; RESP 20; TEMP 36.1; O2SAT 98; BMI 50.6
--- NOTE | 2023-11-22 19:57 | ED_ITS ---
HPI - URI/Sore Throat General Chief Complaint: Upper Respiratory Symptoms Stated Complaint: covid+ body aches fever Time Seen by Provider: 11/22/23 21:04 Source: patient Mode of arrival: ambulatory Limitations: no limitations History of Present Illness HPI Narrative: 28-year-old female with no significant past medical history who presents to the emergency department, with her partner, for complaints of a 2 to three-day history of nausea and vomiting, fever, and generalized body aches. She reports her partner is sick as well and was recently diagnosed positive for COVID, using a home test. She states that she has been managing well at home without any fevers, chills, shortness of breath, headache, vision changes, chest pain, or change in gait and range of motion. Pertinent positives and negatives discussed in HPI Related Data Previous Rx's Medication Instructions Recorded levofloxacin 750 mg tablet 750 mg PO DAILY 7 days #7 tabs 10/05/20 naproxen 500 mg tablet (Naprosyn) 500 mg PO BID PRN pain #10 tabs 10/05/20 ondansetron 4 mg disintegrating 4 mg PO BID PRN nausea and 10/05/20 tablet vomiting 4 days #8 tabs albuterol sulfate 90 mcg/actuation 1 inh inhalation QID PRN shortness 11/02/22 aerosol inhaler of breath or wheezing #8.5 grams codeine 10 mg-guaifenesin 100 mg/5 5 ml PO Q6H PRN cold symptoms #120 11/02/22 mL oral liquid (Guaifenesin AC) mL oseltamivir 75 mg capsule (Tamiflu) 75 mg PO BID 5 days #10 caps 11/02/22 albuterol sulfate 90 mcg/actuation 2 inh inhalation Q4-6H PRN 01/18/23 breath activated powder inhaler shortness of breath or wheezing #1 ea amoxicillin 875 mg-potassium 1 tab PO BID 7 days #14 tabs 01/18/23 clavulanate 125 mg tablet benzonatate 100 mg capsule 100 mg PO BID PRN cough #20 caps 01/18/23 prednisone 20 mg tablet 40 mg (2 x 20 mg) PO DAILY 5 days 01/18/23 #10 tabs Allergies Allergy/AdvReac Type Severity Reaction Status Date / Time No Known Allergies Allergy Verified 11/22/23 19:59 [No Known Allergies*] Review of Systems Review of Systems: Yes all other systems are reviewed and are negative [facility] Past Medical History Onset Date is defined in the Problem List Problems that require an onset date and time if occurred within 24 hrs of arrival to the ED Aortic Dissection and Rupture; Neurologic impairment; Cardiopulmonary Arrest; Endotracheal Intubation; Insertion or Replacement of Mechanical Circulatory Assist Device Medical History No known health problems Family History Family History Other Family history non-contributory Social History Social History Alcohol intake: never Advance Directives: No Advance Directives Information Provided: No Physical Exam Vital Signs: Vital Signs: Last Vital Signs Temp 97.0 F 11/22/23 19:56 Pulse 80 11/22/23 19:56 Resp 20 11/22/23 19:56 BP 150/88 H 11/22/23 19:56 Pulse Ox 98 11/22/23 19:56 O2 Del Method Room Air 11/22/23 19:56 BMI result Body Mass Index 50.6 Nursing notes and vital signs reviewed. GENERAL APPEARANCE: A&0 x 4, generally well appearing, no acute distress HENMT: Normal to inspection, atraumatic, face symmetrical. Normal external ears, nose, and oropharynx clear. NECK: Supple. No stiffness or restricted ROM. CHEST: Normal to inspection HEART: Normal rate and regular rhythm, normal S1/S2, no M/R/G LUNGS: LS CTA, moving air well. Able to speak in complete sentences. No crackles, wheezes, or rhonchi auscultated ABDOMEN: Soft, nontender, nondistended. Normal bowel sounds noted NEUROLOGICAL: Alert and oriented, moving all 4 extremities with equal strength. CN not formally tested but appearing grossly intact. Observed to ambulate with normal gait. Cognition normal SKIN: Warm and dry without any lesions, rash, or visible sores PSYCH: Cooperative, normal affect, normal thought process Medical Decision Making Medical Decision Making MDM Narrative: Old records reviewed and additional HPI obtained from patient's partner. Patient assessed in the emergency department with no evidence of acute distress. Nasal serology negative for COVID and flu. Patient's symptoms are consistent with an upper respiratory infection which may be COVID but just not detectable at this time. Patient educated that a viral respiratory infection is treated by managing symptoms with [id number] medications including Tylenol, Motrin, and cough/cold medications. Patient is safe for discharge at this time with plan for [id number] Tylenol and/or NSAID such as ibuprofen or naproxen for fever/discomfort with dosing as per packaging. HPI, PE, diagnostics, and plan discussed with patient and family with no unanswered questions at this time. Strict return precautions given to return to the emergency department with new, worsening, or concerning emergent symptoms. Recommended to follow-up with there primary care provider in 24-48 hours for further treatment and management. Differential Diagnosis But not limited to COVID, flu, RSV, viral upper respiratory infection, pneumonia, pneumothorax, pleurisy, ACS, PE, sepsis, or malignancy Lab Data Labs: Lab Results 11/22/23 Range/Units 20:10 COVID-19 ([facility]) Negative (Negative) COVID-19 Clin Com See Note Influenza Type A ([facility]) Negative (Negative) Influenza Type B ([facility]) Negative (Negative) Influenza A & B Note See Note Discharge Plan Discharge Clinical Impression: Upper respiratory infection Patient Disposition: Home, Self-Care Instructions: Upper Respiratory Infection (DC) Prescriptions: No Action levofloxacin 750 mg tablet 750 mg PO DAILY 7 Days Qty: 7 0RF ondansetron 4 mg tablet,disintegrating 4 mg PO BID PRN (Reason: nausea and vomiting) 4 Days Qty: 8 0RF naproxen [Naprosyn] 500 mg tablet 500 mg PO BID PRN (Reason: pain) Qty: 10 0RF oseltamivir [Tamiflu] 75 mg capsule 75 mg PO BID 5 Days Qty: 10 0RF albuterol sulfate 90 mcg/actuation HFA aerosol inhaler 1 inh inhalation QID PRN (Reason: shortness of breath or wheezing) Qty: 8.5 0RF codeine-guaifenesin [Guaifenesin AC] 10-100 mg/5 mL liquid 5 ml PO Q6H PRN (Reason: cold symptoms) Qty: 120 0RF prednisone 20 mg tablet 40 mg PO DAILY 5 Days Qty: 10 0RF benzonatate 100 mg capsule 100 mg PO BID PRN (Reason: cough) Qty: 20 0RF albuterol sulfate 90 mcg/actuation aerosol powdr breath activated 2 inh inhalation Q4-6H PRN (Reason: shortness of breath or wheezing) Qty: 1 0RF amoxicillin-pot clavulanate 875-125 mg tablet 1 tab PO BID 7 Days Qty: 14 0RF [place] [facility] [facility] [place] [facility] [place] [facility] [place] Group[place] [facility] [place] [facility] [place] Group] Stand Alone Forms: Work/School Release Interventions: ED Discharge Assessment Last Done: 11/22/23 21:29 Discharge Date/Time: 11/22/23 21:36 Print Language: Malay
[2023-11-22 20:31] LABS: COVID-19 Test Negative (Negative); IDNOW Serial# 08D9AD1C; IDNOW Serial# 9DB6401D; Influenza A Negative (Negative); Influenza B2 Negative (Negative)
== END 2023-11-22 21:36 | disposition home or self-care (01) ==
LOC: HO.ED 21:35
PROVIDERS: Nurse Practitioner Family; Emergency Provider Student in an Organized Health Care Education/Training Program
DX: J06.9 Acute upper respiratory infection, unspecified (principal); R11.2 Nausea with vomiting, unspecified; Z11.52 Encounter for screening for COVID-19
CPT/HCPCS: 87502; 87635; 99282; 99283

== ENCOUNTER 2024-06-09 20:49 | Emergency (ER) | payer MEDICAID, SELFPAY ==
--- NOTE | ~2024-06-09 | XR_ITS ---
EXAMINATION: XR HAND/WRIST, RIGHT CLINICAL INFORMATION: Right hand/wrist pain COMPARISON: Pain TECHNIQUE: PA, lateral, and oblique views of the right hand and wrist. FINDINGS: Osseous alignment is anatomic. There is chronic appearing fragmentation at the ulnar styloid. No convincing evidence for acute fracture. No significant focal soft tissue abnormality identified. XR/XR hand wrist RT IMPRESSION: No acute findings identified. Chronic appearing fragmentation at the ulnar styloid.
[2024-06-09 22:08] VITALS: BP 158/99; PULSE 67; RESP 18; TEMP 37; O2SAT 98; BMI 47.7
[2024-06-10] VITALS: BP 155/90; PULSE 70; RESP 16; TEMP 37; O2SAT 98
--- NOTE | 2024-06-10 00:44 | ED.EXTPRO ---
HPI - Extremity Problem General Chief complaint: Extremity Problem Stated complaint: right wrist lump ,numbness in fingers Time Seen by Provider: 06/10/24 00:14 Source: patient Mode of arrival: ambulatory Limitations: no limitations History of Present Illness ED Provider: Shantel JAMIL HPI Narrative: This is a 29-year-old female presenting with right wrist pain ongoing for the past 4 days, atraumatic in nature. Patient reports she noticed a small lump that has been fluctuating in size and has been worsening in terms of pain. Patient reports pain is worse with palpation intermittent numbness and tingling to that extremity. Patient right-hand dominant. Denies fevers, chills, nausea, vomiting, trauma, headache, vision changes, dizziness and weakness Related Data Previous Rx's ?Medication ?Instructions ?Recorded levofloxacin 750 mg tablet 750 mg PO DAILY 7 days #7 tabs 10/05/20 naproxen 500 mg tablet (Naprosyn) 500 mg PO BID PRN pain #10 tabs 10/05/20 ondansetron 4 mg disintegrating 4 mg PO BID PRN nausea and 10/05/20 tablet vomiting 4 days #8 tabs albuterol sulfate 90 mcg/actuation 1 inh inhalation QID PRN shortness 11/02/22 aerosol inhaler of breath or wheezing #8.5 grams codeine 10 mg-guaifenesin 100 mg/5 5 ml PO Q6H PRN cold symptoms #120 11/02/22 mL oral liquid (Guaifenesin AC) mL oseltamivir 75 mg capsule (Tamiflu) 75 mg PO BID 5 days #10 caps 11/02/22 albuterol sulfate 90 mcg/actuation 2 inh inhalation Q4-6H PRN 01/18/23 breath activated powder inhaler shortness of breath or wheezing #1 ea amoxicillin 875 mg-potassium 1 tab PO BID 7 days #14 tabs 01/18/23 clavulanate 125 mg tablet benzonatate 100 mg capsule 100 mg PO BID PRN cough #20 caps 01/18/23 prednisone 20 mg tablet 40 mg (2 x 20 mg) PO DAILY 5 days 01/18/23 #10 tabs ketorolac 10 mg tablet 10 mg PO TID PRN pain 5 days #15 06/10/24 tabs Allergies Allergy/AdvReac Type Severity Reaction Status Date / Time No Known Allergies Allergy Verified 06/09/24 22:14 [No Known Allergies*] Review of Systems Review of Systems: Yes all other systems are reviewed and are negative [facility] Past Medical History Attestation statement: The following information was validated with the patient. Source: old records reviewed and nursing notes reviewed Medical History No known health problems Family History Family History Other Family history non-contributory Social History Social History Alcohol intake: never Advance Directives: No Advance Directives Information Provided: Yes Physical Exam Vital Signs: Vital Signs: Last Vital Signs Temp 98.6 F 06/10/24 00:00 Pulse 70 06/10/24 00:00 Resp 16 06/10/24 00:00 BP 155/90 H 06/10/24 00:00 Pulse Ox 98 06/10/24 00:00 O2 Del Method Room Air 06/10/24 00:00 BMI result Body Mass Index 47.7 vss Appearance: Alert.? Oriented X3.? No acute distress.? Head: Normocephalic, atraumatic, no step-offs or deformities Eyes: Pupils equal, round and reactive to light.? ENT: Pharynx normal.? Neck: Normal inspection.? Neck supple.? CVS: Normal heart rate and rhythm.? Pulses normal.? Respiratory: No respiratory distress.? Breath sounds normal.? Abdomen: Soft and nontender.? Skin: Skin warm and dry.? Normal skin color.? Normal skin turgor.? Extremities: No lower extremity edema.? No calf ttp. 5/5 strength to bilateral upper and lower extremities 2+ radial pulses equal bilateral no wrist drop. Normal distal sensation. Capillary refill less than 2 seconds. There is a small cyst to the dorsal aspect of right hand overlying the wrist/carpal bones. No overlying erythema, warmth. No fluctuance. Neuro: Oriented X 3.? No motor deficit.? No sensory deficit. CN 2-12 intact Course Reevaluation(s) Reevaluation #1: X-ray pending however on my interpretation unremarkable. If anything changes will call patient for updates. Educated patient on diagnosis and treatment plan, answered all question, patient verbalizes understanding. At this time patient will be discharged home, advised to return with new or worsening symptoms. Educated on worrisome signs and symptoms and when to return. At this time I feel comfortable discharge home. Time: 00:55 Medical Decision Making Medical Decision Making MDM Narrative: 29-year-old female presents with lump to the back of right hand ongoing for the past 4 days. Physical exam Skin warm and dry.? Normal skin color.? Normal skin turgor.? Extremities: No lower extremity edema.? No calf ttp. 5/5 strength to bilateral upper and lower extremities 2+ radial pulses equal bilateral no wrist drop. Normal distal sensation. Capillary refill less than 2 seconds. There is a small cyst to the dorsal aspect of right hand overlying the wrist/carpal bones. No overlying erythema, warmth. No fluctuance. History and physical exam concerning for ganglion cyst. Unlikely drainable abscess. No signs of cellulitis. No signs of fracture, dislocation, neurovascular compromise acute threat to [place], arterial or venous occlusion. Plan imaging, pain control. Differential Diagnosis Differential Diagnoses: The differential diagnosis associated with the presentation includes History and physical exam concerning for ganglion cyst. Unlikely drainable abscess. No signs of cellulitis. No signs of fracture, dislocation, neurovascular compromise acute threat to [place], arterial or venous occlusion. Admission/Observation Consideration of admission/observation: Escalation of care including admission/observation considered Unlikely Independent Interpretation I performed an independent interpretation of an: Plain X-Ray (Unremarkable) External Record Review External record reviewed: Outpatient record Prescription Management I considered prescription management with: Pain Medication (Toradol) Discharge Plan Discharge Clinical Impression: Ganglion cyst Patient Disposition: Home, Self-Care Instructions: Ganglion Cysts (ED), Ganglion Cyst Removal (DC) Additional Instructions: Take your medications as prescribed. If you were prescribed antibiotics today, it is important that you take your medication to their entirety, do not skip any doses, do not finish them early. Follow-up with your primary care provider this week. Return to the emergency department with new or worsening symptoms. Such as fevers, chills, chest pain, shortness of breath, nausea, vomiting, dizziness, headache, vision changes, lethargy In case of emergency call 911 Prescriptions: New ketorolac 10 mg tablet 10 mg PO TID PRN (Reason: pain) 5 Days Qty: 15 0RF No Action levofloxacin 750 mg tablet 750 mg PO DAILY 7 Days Qty: 7 0RF ondansetron 4 mg tablet,disintegrating 4 mg PO BID PRN (Reason: nausea and vomiting) 4 Days Qty: 8 0RF naproxen [Naprosyn] 500 mg tablet 500 mg PO BID PRN (Reason: pain) Qty: 10 0RF oseltamivir [Tamiflu] 75 mg capsule 75 mg PO BID 5 Days Qty: 10 0RF albuterol sulfate 90 mcg/actuation HFA aerosol inhaler 1 inh inhalation QID PRN (Reason: shortness of breath or wheezing) Qty: 8.5 0RF codeine-guaifenesin [Guaifenesin AC] 10-100 mg/5 mL liquid 5 ml PO Q6H PRN (Reason: cold symptoms) Qty: 120 0RF prednisone 20 mg tablet 40 mg PO DAILY 5 Days Qty: 10 0RF benzonatate 100 mg capsule 100 mg PO BID PRN (Reason: cough) Qty: 20 0RF albuterol sulfate 90 mcg/actuation aerosol powdr breath activated 2 inh inhalation Q4-6H PRN (Reason: shortness of breath or wheezing) Qty: 1 0RF amoxicillin-pot clavulanate 875-125 mg tablet 1 tab PO BID 7 Days Qty: 14 0RF Referrals: ED Physician,Generic [Emergency Provider] - 2 days Physician,None [Primary Care Provider] - 2 days [facility] [place] Group] - 2 days Stand Alone Forms: Work/School Release Print Language: Cambodian
[2024-06-10] MEDS: Ketorolac Tromethamine 30 MG/ML VIAL IM (00:56)
[2024-06-10 02:15] VITALS: BP 155/90; PULSE 70; RESP 16; TEMP 37; O2SAT 98
== END 2024-06-10 01:00 | disposition home or self-care (01) ==
PROVIDERS: Emergency Provider Emergency Medicine
DX: M67.431 Ganglion, right wrist (principal); Z79.899 Other long term (current) drug therapy
CPT/HCPCS: 73110; 73130; 96372; 99284; J1885

== ENCOUNTER 2024-08-13 16:30 | Emergency (ER) | payer MEDICAID, SELFPAY ==
--- NOTE | ~2024-08-13 | XR_ITS ---
EXAMINATION: XR FOOT, LEFT CLINICAL INFORMATION: Fifth toe pain and swelling. COMPARISON: None available. TECHNIQUE: AP, lateral, and oblique views of the left foot. FINDINGS: No acute fracture or subluxation. No aggressive appearing osseous lesions. Nonspecific diffuse soft tissue swelling. XR/XR foot LT min 3V IMPRESSION: 1. No acute fracture or malalignment. 2. Nonspecific diffuse soft tissue swelling. Electronically signed by: Maggie Garber MD 08/13/2024 06:37 PM EDT
[2024-08-13 17:05] VITALS: BP 137/84; PULSE 88; RESP 16; TEMP 36.3; O2SAT 98; BMI 46.0
--- NOTE | 2024-08-13 17:05 | ED.GENADULT ---
HPI - General Adult General Chief complaint: Extremity Injury, Lower Stated complaint: toe inj + swelling Time Seen by Provider: 08/13/24 17:44 Source: patient Mode of arrival: ambulatory Limitations: no limitations History of Present Illness HPI narrative: This is an otherwise healthy 29-year-old woman who presents for evaluation of left 5th toe injury. Patient states that she was walking 2 days ago and felt a crack in her left pinky toe. She states that she did not fall or kicking anything. She states nothing fell on her foot. She states increasing pain and swelling to her left 5th pinky toe. She states that she has not taken anything for pain. She states that she has been trying to ice and elevated. She states no other complaints. Related Data Previous Rx's ?Medication ?Instructions ?Recorded levofloxacin 750 mg tablet 750 mg PO DAILY 7 days #7 tabs 10/05/20 naproxen 500 mg tablet (Naprosyn) 500 mg PO BID PRN pain #10 tabs 10/05/20 ondansetron 4 mg disintegrating 4 mg PO BID PRN nausea and 10/05/20 tablet vomiting 4 days #8 tabs albuterol sulfate 90 mcg/actuation 1 inh inhalation QID PRN shortness 11/02/22 aerosol inhaler of breath or wheezing #8.5 grams codeine 10 mg-guaifenesin 100 mg/5 5 ml PO Q6H PRN cold symptoms #120 11/02/22 mL oral liquid (Guaifenesin AC) mL oseltamivir 75 mg capsule (Tamiflu) 75 mg PO BID 5 days #10 caps 11/02/22 albuterol sulfate 90 mcg/actuation 2 inh inhalation Q4-6H PRN 01/18/23 breath activated powder inhaler shortness of breath or wheezing #1 ea amoxicillin 875 mg-potassium 1 tab PO BID 7 days #14 tabs 01/18/23 clavulanate 125 mg tablet benzonatate 100 mg capsule 100 mg PO BID PRN cough #20 caps 01/18/23 prednisone 20 mg tablet 40 mg (2 x 20 mg) PO DAILY 5 days 01/18/23 #10 tabs ketorolac 10 mg tablet 10 mg PO TID PRN pain 5 days #15 06/10/24 tabs Allergies Allergy/AdvReac Type Severity Reaction Status Date / Time No Known Allergies Allergy Verified 08/13/24 17:08 [No Known Allergies*] Review of Systems Review of Systems: ROS as per HPI [facility] Past Medical History Medical History No known health problems Family History Family History Other Family history non-contributory Social History Social History Alcohol intake: current Alcohol intake frequency: holidays/special occasions only Advance Directives: No Advance Directives Information Provided: No Physical Exam ED Vital Signs: Vital Signs - 24 hr 08/13/24 17:05 Temperature 97.3 F Pulse Rate 88 Respiratory Rate 16 Blood Pressure 137/84 Pulse Oximetry 98 Oxygen Delivery Method Room Air BMI result Body Mass Index 46.0 Gen: NAD, AOx3 HEENT: NCAT, EOMI, normal conjunctiva CV: RRR, 2+ bilateral DP/PT pulses Pulm: CTAB, no increased work of breathing GI: Soft, NTND, no rebound, guarding or rigidity MSK: Bilateral lower extremity compartments are soft with intact overlying skin, tenderness to palpation of the left 5th digit pinky toe with mild edema and no ecchymosis, no paronychia or purulence to the left 5th pinky toe, no ecchymosis to the left forefoot or sole of the foot, no tenderness to palpation to the posterior 1/3 of the left medial and lateral malleoli, no tenderness to palpation to the left navicular bone, no tenderness palpation to the left forefoot, intact active flexion/extension the left toes Neuro: Grossly non focal Course Course Course Narrative: This is a rapid medical exam performed by Louis Cool NP: Additional HPI, ROS, PE not included below will be deferred to primary provider. Patient is a 29-year-old female presenting with 2 days of left 5th toe pain and swelling after feeling a crack while walking. Checked for hair tournequet, did not note this. Plan: xray Medications Administered Discontinued Medications Generic Name Dose Route Start Last Admin Trade Name Freq PRN Reason Stop Dose Admin Ibuprofen 600 mg 08/13/24 17:53 08/13/24 17:59 Ibuprofen 600 Mg Tablet PO 08/13/24 17:54 600 mg ONCE ONE Administration Medical Decision Making Medical Decision Making [facility] Narrative: Differential diagnosis includes, but is not limited to sprain, strain, fracture, dislocation. Patient is afebrile and hemodynamically stable on room air. Exam is benign and reassuring. The affected left lower extremity is neurovascularly intact. I independently reviewed and aracelis patient's x-ray of the left foot, which demonstrates no acute fracture or dislocation. Patient is treated supportively with 600 mg po ibuprofen. She is provided a postop shoe for comfort. On re-examination, patient is well-appearing and in no acute distress. ?There is no indication for further emergent evaluation in this otherwise well-appearing patient as above. ?Patient is provided written and verbal instructions, educational materials, recommendations for outpatient follow-up, strict return precautions and teach back is performed. ?Patient states understanding and agreement with plan of care. ?Patient is discharged home in stable and improved condition. Admission/Observation Consideration of admission/observation: Escalation of care including admission/observation considered Independent Interpretation I performed an independent interpretation of an: Plain X-Ray Radiology Impression Discussion of test interpretation with radiology: I have reviewed the radiologist's reading. Radiologist Impression: XR/XR foot LT min 3V IMPRESSION: 1. No acute fracture or malalignment. 2. Nonspecific diffuse soft tissue swelling. Electronically signed by: Maggie Garber MD 08/13/2024 06:37 PM EDT Dictated By: Maggie Garber Signed By: <Electronically signed by Maggie Garber in OV> 08/13/24 1837 Discharge Plan Discharge Clinical Impression: Sprain of toe Patient Disposition: Home, Self-Care Instructions: Foot Sprain (ED) Additional Instructions: You were seen and evaluated in the emergency room. Your x-rays were overall reassuring. Please take 600 mg ibuprofen every 6 hours for pain and swelling. Please always take with food and water. You are given a postop shoe for comfort. Please follow with the primary care doctor in the next 1-2 weeks if you are still having pain and swelling Please return to the emergency room if you have any new or concerning symptoms. Prescriptions: No Action levofloxacin 750 mg tablet 750 mg PO DAILY 7 Days Qty: 7 0RF ondansetron 4 mg tablet,disintegrating 4 mg PO BID PRN (Reason: nausea and vomiting) 4 Days Qty: 8 0RF naproxen [Naprosyn] 500 mg tablet 500 mg PO BID PRN (Reason: pain) Qty: 10 0RF oseltamivir [Tamiflu] 75 mg capsule 75 mg PO BID 5 Days Qty: 10 0RF albuterol sulfate 90 mcg/actuation HFA aerosol inhaler 1 inh inhalation QID PRN (Reason: shortness of breath or wheezing) Qty: 8.5 0RF codeine-guaifenesin [Guaifenesin AC] 10-100 mg/5 mL liquid 5 ml PO Q6H PRN (Reason: cold symptoms) Qty: 120 0RF prednisone 20 mg tablet 40 mg PO DAILY 5 Days Qty: 10 0RF benzonatate 100 mg capsule 100 mg PO BID PRN (Reason: cough) Qty: 20 0RF albuterol sulfate 90 mcg/actuation aerosol powdr breath activated 2 inh inhalation Q4-6H PRN (Reason: shortness of breath or wheezing) Qty: 1 0RF amoxicillin-pot clavulanate 875-125 mg tablet 1 tab PO BID 7 Days Qty: 14 0RF ketorolac 10 mg tablet 10 mg PO TID PRN (Reason: pain) 5 Days Qty: 15 0RF Print Language: Canadian
[2024-08-13] MEDS: Ibuprofen 600 MG TABLET PO (17:59)
[2024-08-13 18:58] VITALS: BP 137/84; PULSE 88; RESP 16; TEMP 36.3; O2SAT 98
== END 2024-08-13 18:58 | disposition home or self-care (01) ==
PROVIDERS: Emergency Provider Emergency Medicine
DX: S93.505A Unspecified sprain of left lesser toe(s), initial encounter (principal); X58.XXXA Exposure to other specified factors, initial encounter; Y93.9 Activity, unspecified; Y92.9 Unspecified place or not applicable; Y99.9 Unspecified external cause status
CPT/HCPCS: 73630; 99283

== ENCOUNTER 2024-12-03 19:33 | Emergency (ER) | payer MEDICAID, SELFPAY ==
--- NOTE | ~2024-12-03 | XR_ITS ---
CLINICAL HISTORY: pain in lower thoracic spine 2 views thoracic spine Comparison: None Findings: Mild height losses of T11, T12, and L1 are age indeterminate by radiographs. No significant listhesis of the partially imaged thoracic spine. Cervicothoracic junction and upper thoracic vertebrae obscured. Degenerative changes including facet arthropathy greater than expected for age. Mild bibasilar atelectasis and correlate opacities are noted. IMPRESSION: 1. Mild height losses of the thoracolumbar spine are age indeterminate by radiographs. Point tenderness may be informative. 2. Degenerative changes include facet arthropathy in the [id number]. This document has been electronically signed by: Rajendra Vizcaino MD on 12/04/2024 00:10:26
--- NOTE | ~2024-12-03 | XR_ITS ---
CLINICAL HISTORY: back pain, feels like grinding 3 views lumbar spine Comparison: None Findings: Mild height loss of the imaged T12 is age indeterminate by radiographs. Minimal height loss of the L1 is age indeterminate by radiographs. Chronicity is considered given remodeling, sclerosis, and bridging adjacent osteophytes. Additional bridging osteophytes include L2-L3. No significant listhesis of the 5 lumbar type vertebrae. Degenerative changes include lower lumbar facet arthropathy; greater than expected for age. L5 pars are partly obscured without definite lysis. Metal and frontal image is likely the umbilicus type piercing. Sacrum and SI joints are mostly obscured. With moderate stool burden in the [id number]. IMPRESSION: 1. Facet arthropathy is greater than expected for age, including lower lumbar spine. 2. Mild thoracolumbar vertebral height losses are age indeterminate by radiographs. This document has been electronically signed by: Rajendra Vizcaino MD on 12/03/2024 20:39:50
[2024-12-03 19:52] VITALS: BP 190/85; PULSE 69; RESP 18; TEMP 37.1; O2SAT 100; BMI 46.8
--- NOTE | 2024-12-03 19:53 | ED.GENADULT ---
HPI - General Adult General Chief complaint: Back Pain/Injury Stated complaint: back pain Time Seen by Provider: 12/03/24 22:46 History of Present Illness ED Provider: Ayaan BELL narrative: The patient says that early this morning she was feeling a car tire with the air from a machine. She had to bend over a lot to do this about an hour later she developed pain in her lower back that has gotten gradually worse over the course of the day and she finally came to the emergency room. She has had no fever, sweats, chills. She has had no bowel or bladder control problems. The pain does not radiate down her legs. She has no numbness, tingling, or weakness in her lower extremities. Related Data Previous Rx's ?Medication ?Instructions ?Recorded levofloxacin 750 mg tablet 750 mg PO DAILY 7 days #7 tabs 10/05/20 naproxen 500 mg tablet (Naprosyn) 500 mg PO BID PRN pain #10 tabs 10/05/20 ondansetron 4 mg disintegrating 4 mg PO BID PRN nausea and 10/05/20 tablet vomiting 4 days #8 tabs albuterol sulfate 90 mcg/actuation 1 inh inhalation QID PRN shortness 11/02/22 aerosol inhaler of breath or wheezing #8.5 grams codeine 10 mg-guaifenesin 100 mg/5 5 ml PO Q6H PRN cold symptoms #120 11/02/22 mL oral liquid (Guaifenesin AC) mL oseltamivir 75 mg capsule (Tamiflu) 75 mg PO BID 5 days #10 caps 11/02/22 albuterol sulfate 90 mcg/actuation 2 inh inhalation Q4-6H PRN 01/18/23 breath activated powder inhaler shortness of breath or wheezing #1 ea amoxicillin 875 mg-potassium 1 tab PO BID 7 days #14 tabs 01/18/23 clavulanate 125 mg tablet benzonatate 100 mg capsule 100 mg PO BID PRN cough #20 caps 01/18/23 prednisone 20 mg tablet 40 mg (2 x 20 mg) PO DAILY 5 days 01/18/23 #10 tabs ketorolac 10 mg tablet 10 mg PO TID PRN pain 5 days #15 06/10/24 tabs cyclobenzaprine 10 mg tablet 10 mg PO TID PRN muscle spasm #15 12/04/24 tabs ibuprofen 600 mg tablet 600 mg PO Q6H PRN pain #14 tabs 12/04/24 Allergies Allergy/AdvReac Type Severity Reaction Status Date / Time No Known Allergies Allergy Verified 12/03/24 19:53 [No Known Allergies*] Review of Systems Review of Systems: Yes all other systems are reviewed and are negative [facility] Past Medical History Medical History No known health problems Family History Family History Other Family history non-contributory Social History Social History Unable to assess alcohol history related to: Unknown Alcohol intake: current Alcohol intake frequency: holidays/special occasions only Smoked in Last 30 Days: No Use of substances other than those prescribed or required for medical reasons: Unknown Advance Directives: No Advance Directives Information Provided: Yes Do you have a plan to hurt others: No Plan Physical Exam ED Vital Signs: Vital Signs - 24 hr 12/03/24 19:52 12/04/24 00:47 Temperature 98.8 F 98.6 F Pulse Rate 69 70 Respiratory Rate 18 16 Blood Pressure 190/85 H 176/82 H Pulse Oximetry 100 98 Oxygen Delivery Method Room Air Room Air BMI result Body Mass Index 46.8 Const Other: the patient is a 29-year-old woman who is awake and alert and seems somewhat uncomfortable. HENMT Other: Face is symmetrical. Mucous membranes moist. Eyes Other: Pupils are round equal, conjunctivae clear Neck Neck: Yes full ROM Resp Effort & Inspection: normal respiratory effort Auscultation: clear to auscultation bilaterally Cardio Rate: regular rate Rhythm: regular rhythm Heart sounds: S1 normal heart sound present and S2 normal heart sound present Back/Spine/Pelvis Other: The patient has tenderness in the lower thoracic and upper lumbar region in the midline. Skin Other: skin is dry and unremarkable. Neuro Other: The patient is awake and alert with normal mental status. Cranial nerves are intact. She has intact strength and sensation in her extremities. She has difficulty with moving because of pain but does not seem to have any neurological deficit. Extrem Other: No peripheral edema Course Course Course Narrative: This is a rapid medical exam performed by Louis Cool NP: Additional HPI, ROS, PE not included below will be deferred to primary provider. Patient is a 29-year-old female presenting to the ED with complaint of lower back pain which began earlier today. States symptoms began after she was helping a friend change a spare tire. Denies fall or other trauma. No radiation to legs. Denies saddle anesthesia or bowel/bladder incontinence. Plan: X-ray Medications Administered Discontinued Medications Generic Name Dose Route Start Last Admin Trade Name Alyx PRN Reason Stop Dose Admin Acetaminophen 975 mg 12/04/24 00:26 12/04/24 00:38 Acetaminophen 325 Mg Tablet PO 12/04/24 00:27 975 mg ONCE ONE Administration Cyclobenzaprine HCl 10 mg 12/04/24 00:26 12/04/24 00:39 Cyclobenzaprine Hcl 10 Mg Tablet PO 12/04/24 00:27 10 mg ONCE ONE Administration Ketorolac Tromethamine 45 mg 12/03/24 22:53 12/03/24 23:02 Ketorolac Tromethamine 30 Mg/Ml Vial IM 12/03/24 22:54 45 mg ONCE ONE Administration Medical Decision Making Medical Decision Making MDM Narrative: the patient describes gradual onset of low back pain after having bent over for a long period of time to inflate her car tire early this morning. She is tender in the region of the thoracolumbar spine. X-rays of the thoracic and lumbar spine show some mild loss of height of T11, T12, and L1. There is no definite acute fracture. I explained these findings to the patient. I suspect that this is still more likely muscular pain that an acute fracture. She has no neurological or infectious component to her presentation. She will be treated with ibuprofen and cyclobenzaprine. She is given a work note. She is advised to rest and take it easy. She does not have a primary care doctor. She is encouraged to try to get a primary care doctor. Discharge Plan Discharge Clinical Impression: Acute back pain Patient Disposition: Home, Self-Care Instructions: Back Pain (ED) Additional Instructions: Your x-ray shows some slight loss of height of your lower thoracic vertebra, T11, and T12, and also of your upper lumbar vertebra, L1. It was not clear that these findings on your x-ray are related to what happened this morning. I suspect most of your pain is muscular strain pain. Please plan on resting and taking it easy for the next several days. You may take 2 extra-strength acetaminophen (Tylenol) up to 3 times per day as needed for pain. Additionally I have sent a prescription for ibuprofen that you may use every 6 hours as needed, and the muscle relaxant cyclobenzaprine which you may take up to 3 times a day as well. No driving on the cyclobenzaprine. Please work on getting a primary care doctor. Return to the emergency room if significantly worse. Prescriptions: New cyclobenzaprine 10 mg tablet 10 mg PO TID PRN (Reason: muscle spasm) Qty: 15 0RF ibuprofen 600 mg tablet 600 mg PO Q6H PRN (Reason: pain) Qty: 14 0RF No Action levofloxacin 750 mg tablet 750 mg PO DAILY 7 Days Qty: 7 0RF ondansetron 4 mg tablet,disintegrating 4 mg PO BID PRN (Reason: nausea and vomiting) 4 Days Qty: 8 0RF naproxen [Naprosyn] 500 mg tablet 500 mg PO BID PRN (Reason: pain) Qty: 10 0RF oseltamivir [Tamiflu] 75 mg capsule 75 mg PO BID 5 Days Qty: 10 0RF albuterol sulfate 90 mcg/actuation HFA aerosol inhaler 1 inh inhalation QID PRN (Reason: shortness of breath or wheezing) Qty: 8.5 0RF codeine-guaifenesin [Guaifenesin AC] 10-100 mg/5 mL liquid 5 ml PO Q6H PRN (Reason: cold symptoms) Qty: 120 0RF prednisone 20 mg tablet 40 mg PO DAILY 5 Days Qty: 10 0RF benzonatate 100 mg capsule 100 mg PO BID PRN (Reason: cough) Qty: 20 0RF albuterol sulfate 90 mcg/actuation aerosol powdr breath activated 2 inh inhalation Q4-6H PRN (Reason: shortness of breath or wheezing) Qty: 1 0RF amoxicillin-pot clavulanate 875-125 mg tablet 1 tab PO BID 7 Days Qty: 14 0RF ketorolac 10 mg tablet 10 mg PO TID PRN (Reason: pain) 5 Days Qty: 15 0RF Stand Alone Forms: Work/School Release Interventions: ED Discharge Assessment Last Done: 12/04/24 00:47 Discharge Date/Time: 12/04/24 00:56 Print Language: Kinyarwanda
--- OUTSIDE RECORDS SUMMARY | 2024-12-03 22:10 | XMS_ITS | Clinical Summary ---
Author Organization [facility] Address [address] [place] [address] Care Team Providers Care [employer] Name Role Phone Jasmin Talbot HSAHBAZ Primary Care Provider + Medical History Medical History Date Comments Bronchitis DX:Bronchitis Family History Medical History Relation Name Comments Lung cancer Neg Hx Social History Tobacco Use Types Packs/Day Years Used Date Smoking Tobacco: Former Cigarettes Smokeless Tobacco: Never Alcohol Use Standard Drinks/Week Comments Yes 0 (1 standard drink = 0.6 oz pur e alcohol) Sex and Gender Information Value Date Recorded Sex Assigned at Not on file Gender Identity Not on file Sexual Orientation Not on file Obstetrics History Plan of Treatment Health Maintenance Due Date Last Done Comments DTaP,Tdap,and Td Vaccines (1 - Tdap) 2012 Hepatitis B Vaccines (1 of 3 - 19+ 3-dose series) 2012 Cervical Cancer Screening: P ap Smear 2014 Depression Screening 10/15/2022 HIV Screening 10/15/2022 Hepatitis C Screening 10/15/2022 Social Influencers of Health Screening 10/15/2022 COVID-19 Vaccine ( - 2023-2 5 season) 2024 Influenza Vaccine (#1) 2024 HIB Vaccines Aged Out No longer eligi ble based on patient's age to complete this topic HPV Vaccines Aged Out No longer eligi ble based on patient's age to complete this topic Hepatitis A Vaccines Aged Out No long er eligible based on patient's age to complete this topic IPV Vaccines Aged Out No longer eligi ble based on patient's age to complete this topic MMR Vaccines Aged Out No longer eligi ble based on patient's age to complete this topic Meningococcal ACWY Vaccine Aged Out N o longer eligible based on patient's age to complete this topic Pneumococcal Vaccine: Pediat rics (0 to 5 Years) and At-Risk Patients (6 to 64 Years) Aged Out No longer eligible b ased on patient's age to complete this topic RSV Immunization Patients Un miguel 20 months Aged Out No longer eligible b ased on patient's age to complete this topic Varicella Vaccines Aged Out No longer eligible based on patient's age to complete this topic Care Teams [employer] Relationship Specialty Start Date End Date Jasmin Talbot NP [address] [place] [address] PCP - General Family Medicine 04/21/22
[2024-12-03] MEDS: Ketorolac Tromethamine 30 MG/ML VIAL 45 MG IM (23:02)
[2024-12-04] MEDS: Acetaminophen 325 MG TABLET 975 MG PO (00:38)
[2024-12-04] MEDS: Cyclobenzaprine HCl 10 MG TABLET PO (00:39)
[2024-12-04 00:47] VITALS: BP 176/82; PULSE 70; RESP 16; TEMP 37; O2SAT 98
== END 2024-12-04 00:56 | disposition home or self-care (01) ==
PROVIDERS: Emergency Provider Emergency Medicine
DX: M54.50 Low back pain, unspecified (principal); M54.6 Pain in thoracic spine; Z79.899 Other long term (current) drug therapy
CPT/HCPCS: 72070; 72100; 96372; 99284; J1885

== ENCOUNTER → 2024-12-03 19:53 | Outpatient (BNV) | payer MEDICAID, SELFPAY | PROVIDERS: Visit Provider Radiology Neuroradiology | DX: M54.9 Dorsalgia, unspecified (principal) | CPT/HCPCS: 72070; 72100 ==

== ENCOUNTER 2025-01-20 10:22 | Outpatient (AMB) | payer OTHER, SELFPAY ==
[2025-01-20 10:32] VITALS: BP 140/82; PULSE 76; RESP 18; TEMP 37.2; O2SAT 97; BMI 49.6
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
--- OUTSIDE RECORDS SUMMARY | 2025-01-20 12:20 | XMS_ITS | Clinical Summary ---
Author Organization [facility] Address [id number] [place] [id number] Care Team Providers Care Plater Production Name Role Phone Jasmin Talbot SHAHBAZ Primary Care Provider + Medical History Medical History Date Comments Bronchitis DX:Bronchitis Family History Medical History Relation Name Comments Lung cancer Neg Hx Social History Tobacco Use Types Packs/Day Years Used Date Smoking Tobacco: Former Cigarettes Smokeless Tobacco: Never Alcohol Use Standard Drinks/Week Comments Yes 0 (1 standard drink = 0.6 oz pur e alcohol) Comments Unknown Sex and Gender Information Value Date Recorded Sex Assigned at Not on file Legal Sex Female 8:28 AM EST Gender Identity Not on file Sexual Orientation [...] patient's age to complete this topic Meningococcal B Vacine Aged Out No lo nger eligible based on patient's age to complete [...] age to complete this topic Care Teams Plater Production Relationship Specialty Start Date End Date Jasmin Talbot NP [address] [place] [address] PCP - General Family Medicine 04/21/22
--- OUTSIDE RECORDS SUMMARY | 2025-01-20 12:20 | XMS_ITS | Clinical Summary ---
Author Organization [facility] Address [address] [place] [address] Care Team Providers Care Rodeo Performer Name Role Phone Jasmin Talbot SUJATA Primary Care Provider Social History Tobacco Use Types Packs/Day Years Used Date Smoking Tobacco: Never Assessed Sex and Gender Information Value Date Recorded Sex Assigned at Not on file Gender Identity Not on file Sexual Orientation Not on file Plan of Treatment Health Maintenance Due Date Last Done Comments Hepatitis C Virus Screening 1993 HIV Screening 2006 DTaP/Tdap/Td Vaccines (1 - Tdap) 2012 Hepatitis B Vaccines (1 of 3 - 19+ 3-dose series) 2012 Pneumococcal Vaccine: Pediat robbie (0-5 Years) and At-Risk Patients (6 to 49 Years) (1 of 2 - PCV) 2012 Pap Smear (Ages 21-65) 2014 Influenza Vaccine 06/12/2024 COVID-19 Vaccine ( - 2023-2 5 season) 2024 HPV Vaccines Aged Out No longer eligi ble based on patient's age to complete this topic Care Teams Rodeo Performer Relationship Specialty Start Date End Date Jasmin Talbot APRN [address] [place] [address] PCP - General Internal Medicine 03/16/22
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
== END 2025-01-20 11:48 | disposition home or self-care (01) ==
LOC: HO.HMCH 10:22
DX: M51.35 Other intervertebral disc degeneration, thoracolumbar region (principal); E66.01 Morbid (severe) obesity due to excess calories; Z68.42 Body mass index [BMI] 45.0-49.9, adult; H91.93 Unspecified hearing loss, bilateral; M25.561 Pain in right knee

== ENCOUNTER → 2025-01-20 10:22 | Outpatient (BNVA) | payer OTHER, SELFPAY | DX: E66.01 Morbid (severe) obesity due to excess calories (principal); Z68.42 Body mass index [BMI] 45.0-49.9, adult; H91.93 Unspecified hearing loss, bilateral; M51.35 Other intervertebral disc degeneration, thoracolumbar region; M25.561 Pain in right knee | CPT/HCPCS: 96127 ==

== ENCOUNTER 2025-01-21 09:42 | Outpatient (REF) | payer OTHER, SELFPAY ==
--- NOTE | ~2025-01-21 | XR_ITS ---
CLINICAL HISTORY: M25.561 - Pain in right knee Two views of the right knee. COMPARISON: None FINDINGS: Small suprapatellar joint effusion. Patellar enthesophyte present. Joint spaces are maintained. Visualized portions of the distal femur, patella, and proximal tibia and fibula appear intact. IMPRESSION: 1. Small right suprapatellar joint effusion. This document has been electronically signed by: Parth Marcial MD on 01/21/2025 17:09:03
[2025-01-21 10:04] LABS: MANUAL DIFF FLAG NO
[2025-01-21 10:24] LABS: Basophils Absolute Auto 0.1 X10*3/uL (0.0-0.2); Basophils Percent Auto 0.7 % (0-2); Eosinophils Absolute Auto 0.3 X10*3/uL (0.0-0.4); Eosinophils Percent Auto 2.2 % (0-4); Hematocrit 40.5 % (37.0-47.0); Hemoglobin 13.3 g/dl (12.0-16.0); Imm Gran Abs Auto 0.16 X10*3/uL (0.00-0.03); Imm Gran Pct Auto 1.1 % (0.0-0.4); Lymphocytes Absolute Auto 3.5 X10*3/uL (1.2-4.9); Lymphocytes Percent Auto 23.1 % (20-40); Mean Corpuscular HGB Conc 32.8 g/dl (31.0-35.0); Mean Corpuscular Hemoglobin 26.5 pg (27.0-33.0); Mean Corpuscular Volume 80.7 fL (80.0-98.0); Mean Platelet Volume 10.9 fL (9.4-12.3); Monocytes Absolute Auto 0.9 X10*3/uL (0.1-1.2); Monocytes Percent Auto 6.1 % (2-11); Neutrophils Absolute Auto 10.1 x10*3/uL (2.0-8.3); Neutrophils Percent Auto 66.8 % (45-73); Platelet Count 389 X10*3/uL (160-400); Red Blood Count 5.02 X10*6/uL (4.20-5.50); Red Cell Distribution Width 13.2 % (11.0-16.0); White Blood Count 15.1 X10*3/uL (4.8-10.8)
--- OUTSIDE RECORDS SUMMARY | 2025-01-21 10:47 | XMS_ITS | Clinical Summary ---
Author Organization [facility] Address [address] [place] [address] Care Team Providers Care Applied Marine Physics Professor Name Role Phone Jasmin Talbot SHAHBAZ Primary [...] age to complete this topic Care Teams Applied Marine Physics Professor Relationship Specialty Start Date End Date Jasmin Talbot NP [address] [place] [address] PCP - General Family Medicine 04/21/22
--- OUTSIDE RECORDS SUMMARY | 2025-01-21 10:47 | XMS_ITS | Clinical Summary ---
Author Organization [facility] Address [address] [place] [address] Care Team Providers Care Saturator Operator Name Role Phone Jasmin Talbot SUJATA Primary [...] age to complete this topic Care Teams Saturator Operator Relationship Specialty Start Date End Date Jasmin Talbot APRN [address] [place] [address] PCP - General Internal Medicine 03/16/22
[2025-01-21 11:02] LABS: Appearance Urine Cloudy; Color Urine Yellow; Glucose Urine UA Negative (Negative); Leukocyte Esterase Urine Small (1+) (Negative); Nitrite Urine Positive (Negative); PH 6.5 (5.0-9.0); UMIC TRIGGER UACC YES; Urine Blood Negative (Negative); Urine Ketones Negative (Negative); Urine Protein Trace mg/dL (Neg-Trace)
[2025-01-21 11:06] LABS: Bacteria Urine 4+ (None Seen); Hyaline Casts Urine 0-2 /LPF (0-2); RBC Urine 0-2 /HPF (0-2); UACC Culture Trigger YES; WBC Urine 21-50 /HPF (0-5)
[2025-01-21 11:31] LABS: Alanine Aminotransferase 30 U/L (0-31); Albumin Level 3.7 g/dL (3.5-5.0); Alkaline Phosphatase 64 U/L (39-117); Anion Gap 13 (12-20); Aspartate Amino Transferase 42 U/L (5-31); Bilirubin Total 0.3 mg/dL (0.0-1.0); Blood Urea Nitrogen 11 mg/dL (9-16); Carbon Dioxide 26 mmol/L (22-29); Chloride 106 mmol/L (96-108); Cholesterol 149 mg/dL (<200); Estimated Glomerular Filt Rate > 60; Glucose Fasting 97 mg/dL (60-99); HDL Cholesterol 36 mg/dL (>40); LDL Cholesterol Calculated 94 mg/dL (<100); Potassium 4.2 mmol/L (3.3-5.1); Sodium 141 mmol/L (135-145); Total Protein 8.3 g/dL (6.5-8.0); Triglycerides 99 mg/dL (<150)
[2025-01-21 11:44] LABS: TSH reflex Free T4 1.41 uIU/mL (0.32-4.0); Vitamin D 25-OH Total 17.8 ng/mL (>30)
== END 2025-01-21 09:43 | disposition home or self-care (01) ==
LOC: HO.XRAY 09:42
DX: Z00.00 Encounter for general adult medical examination without abnormal findings (principal); M25.561 Pain in right knee; Z13.6 Encounter for screening for cardiovascular disorders
CPT/HCPCS: 36415; 73560; 80053; 80061; 81001; 81003; 82306; 84443; 85025; 87086; 87088; 87186

== ENCOUNTER → 2025-01-21 10:09 | Outpatient (BNV) | payer OTHER, SELFPAY | PROVIDERS: Visit Provider Radiology Diagnostic Radiology | DX: M25.461 Effusion, right knee (principal) | CPT/HCPCS: 73560 ==

== ENCOUNTER 2025-02-10 08:33 | Outpatient (AMB) | payer OTHER, SELFPAY ==
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
[2025-02-10 08:42] VITALS: BP 179/105; PULSE 89; O2SAT 98; BMI 49.6
--- OUTSIDE RECORDS SUMMARY | 2025-02-10 08:50 | XMS_ITS | Clinical Summary ---
Author Organization [facility] Address [address] [place] [address] Care Team Providers Care Crisis Clinician Name Role Phone Jasmin Talbot SUJATA Primary [...] age to complete this topic Care Teams Crisis Clinician Relationship Specialty Start Date End Date Jasmin Talbot APRN [address] [place] [address] PCP - General Internal Medicine 03/16/22
--- OUTSIDE RECORDS SUMMARY | 2025-02-10 08:50 | XMS_ITS | Clinical Summary ---
Author Organization [facility] Address [id number] [place] [id number] Care Team Providers Care Sales Floor Team Leader Name Role Phone Jasmin Talbot SHAHBAZ Primary [...] age to complete this topic Care Teams Sales Floor Team Leader Relationship Specialty Start Date End Date Jasmin Talbot NP [address] [place] [address] PCP - General Family Medicine 04/21/22
== END 2025-02-10 09:11 | disposition home or self-care (01) ==
LOC: HO.PMC 08:34
PROVIDERS: Visit Provider Nurse Practitioner Family
DX: M25.561 Pain in right knee (principal); E66.01 Morbid (severe) obesity due to excess calories; Z68.42 Body mass index [BMI] 45.0-49.9, adult; M51.35 Other intervertebral disc degeneration, thoracolumbar region; M47.817 Spondylosis without myelopathy or radiculopathy, lumbosacral region; M25.562 Pain in left knee
CPT/HCPCS: 99204

== ENCOUNTER 2025-03-10 09:02 | Outpatient (AMB) | payer OTHER, SELFPAY ==
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
--- OUTSIDE RECORDS SUMMARY | 2025-03-10 09:47 | XMS_ITS | Clinical Summary ---
Author Organization [facility] Address [address] [place] [id number] Care Team Providers Care Plant Pathologist Name Role Phone Jasmin Talbto APRN Primary Care Provider Social History Tobacco Use Types Packs/Day Years Used Date Smoking Tobacco: Never Assessed Comments Unknown Sex and Gender Information Value Date Recorded Sex Assigned at Not on file Legal Sex Female 2:19 PM EDT Gender Identity Not on file Sexual Orientation [...] on patient's age to complete this topic Insurance [facility] Care Teams Plant Pathologist Relationship Specialty Start Date End Date Jasmin Talbot APRN [address] [place] [address] PCP - General Internal Medicine 03/16/22
--- OUTSIDE RECORDS SUMMARY | 2025-03-10 09:47 | XMS_ITS | Clinical Summary ---
Author Organization [facility] Address [address] [place] [id number] Care Team Providers Care Home Lending Officer Name Role Phone Jasmin Talbot SHAHBAZ Primary [...] - 2023-2 5 season) 2024 Influenza Vaccine (Season Ended) 2025 HIB Vaccines Aged Out No longer eligi [...] age to complete this topic Meningococcal B Vaccine Aged Out No l onger eligible based on patient's age to complete [...] age to complete this topic Care Teams Home Lending Officer Relationship Specialty Start Date End Date Jasmin Talbot NP [address] [place] [address] PCP - General Family Medicine 04/21/22
== END 2025-03-10 09:21 | disposition home or self-care (01) ==
LOC: HO.HOS 09:06
PROVIDERS: Visit Provider Orthopaedic Surgery
DX: S83.241A Other tear of medial meniscus, current injury, right knee, initial encounter (principal)
CPT/HCPCS: 99203

== ENCOUNTER 2025-03-13 09:24 | Outpatient (AMB) | payer OTHER, SELFPAY ==
[2025-03-13 09:27] VITALS: BP 132/74; PULSE 76; RESP 18; TEMP 36.6; O2SAT 98; BMI 49.4
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
--- OUTSIDE RECORDS SUMMARY | 2025-03-13 10:12 | XMS_ITS | Clinical Summary ---
Author Organization [facility] Address [id number] [place] [id number] Care Team Providers Care Spragger Name Role Phone Jasmin Talbot SHAHBAZ Primary [...] age to complete this topic Care Teams Spragger Relationship Specialty Start Date End Date Jasmin Talbot NP [address] [place] [address] PCP - General Family Medicine 04/21/22
--- OUTSIDE RECORDS SUMMARY | 2025-03-13 10:12 | XMS_ITS | Clinical Summary ---
Author Organization [facility] Address [address] [place] [address] Care Team Providers Care Bioinformatics Team Member Name Role Phone Jasmin Talbot APRN Primary Care Provider Social History Tobacco [...] patient's age to complete this topic Insurance [facility] Care Teams Bioinformatics Team Member Relationship Specialty Start Date End Date Jasmin Talbot APRN [address] [place] [address] PCP - General Internal Medicine 03/16/22
== END 2025-03-13 10:23 | disposition home or self-care (01) ==
LOC: HO.HMCH 09:25
DX: R74.01 Elevation of levels of liver transaminase levels (principal); E66.01 Morbid (severe) obesity due to excess calories; Z68.42 Body mass index [BMI] 45.0-49.9, adult; E55.9 Vitamin D deficiency, unspecified; D72.823 Leukemoid reaction; M25.461 Effusion, right knee

== ENCOUNTER → 2025-03-13 09:24 | Outpatient (BNVA) | payer OTHER, SELFPAY | DX: R74.01 Elevation of levels of liver transaminase levels (principal); E55.9 Vitamin D deficiency, unspecified; D72.823 Leukemoid reaction; M25.461 Effusion, right knee; E66.01 Morbid (severe) obesity due to excess calories; Z68.42 Body mass index [BMI] 45.0-49.9, adult | CPT/HCPCS: 96160 ==

== ENCOUNTER 2025-03-17 18:51 | Outpatient (REF) | payer OTHER, SELFPAY ==
--- NOTE | ~2025-03-17 | MR_ITS ---
EXAMINATION: MRI RIGHT KNEE WITHOUT CONTRAST HISTORY: S83.241A - Other tear of medial meniscus, current injury, right knee COMPARISON: Correlation is made with plain films of the right knee dated 01/21/2025. TECHNIQUE: Coronal T1 and fat-suppressed proton density, sagittal proton density and fat-suppressed proton density, and axial fat suppressed T2 weighted MR images of the right knee were obtained. FINDINGS: Bone marrow: Bone marrow signal intensity is normal. Joint effusion: There is no joint effusion. Wiseman's cyst: There is no Wiseman's cyst. Articular cartilage: There is a cartilage defect involving the weightbearing portion of the medial femoral condyle measuring approximately 6 x 3 mm in size (series 10, image 7 and series 2, image 17). The remaining articular cartilage is intact. Muscles/soft tissues: The visualized muscles demonstrate normal signal intensity. Anterior cruciate ligament: Intact Posterior cruciate ligament: Intact Medial collateral ligament: Intact Lateral collateral ligament: Intact Medial meniscus: Intact Lateral meniscus: Intact Flexor mechanism: The popliteus, gastrocnemius, and hamstring tendons are intact. Quadriceps tendon: Intact Patellar tendon: Intact Patellar retinacula: Intact MR/MR knee RT wo con IMPRESSION: Cartilage defect involving the medial femoral condyle as described. Otherwise unremarkable MRI of the right knee. Electronically signed by: Lior Hurtado MD 03/18/2025 07:09 AM EDT
--- OUTSIDE RECORDS SUMMARY | 2025-03-17 18:53 | XMS_ITS | Clinical Summary ---
Author Organization [facility] Address [id number] [place] [id number] Care Team Providers Care Inclusion Internship Name Role Phone Jasmin Talbot SHAHBAZ Primary [...] age to complete this topic Care Teams Inclusion Internship Relationship Specialty Start Date End Date Jasmin Talbot NP [address] [place] [address] PCP - General Family Medicine 04/21/22
--- OUTSIDE RECORDS SUMMARY | 2025-03-17 18:53 | XMS_ITS | Clinical Summary ---
Author Organization [facility] Address [address] [place] [address] Care Team Providers Care Applied Psychology Chair Name Role Phone Jasmin Talbot APRN Primary [...] PCV) 2012 Pap Smear (Ages 21-65) 2014 COVID-19 Vaccine ( - 2023-2 5 season) 2024 Influenza Vaccine 06/12/2025 HPV Vaccines Aged Out No longer eligi ble based on patient's age to complete this topic Insurance [facility] Care Teams Applied Psychology Chair Relationship Specialty Start Date End Date Jasmin Talbot APRN [address] [place] [address] PCP - General Internal Medicine 03/16/22
== END 2025-03-17 18:52 | disposition home or self-care (01) ==
LOC: HO.MRI 18:51
PROVIDERS: Visit Provider Orthopaedic Surgery
DX: S83.241A Other tear of medial meniscus, current injury, right knee, initial encounter (principal)
CPT/HCPCS: 73721

== ENCOUNTER → 2025-03-17 18:55 | Outpatient (BNV) | payer OTHER, SELFPAY | PROVIDERS: Visit Provider Radiology Diagnostic Radiology | DX: S83.241A Other tear of medial meniscus, current injury, right knee, initial encounter (principal) | CPT/HCPCS: 73721 ==

== ENCOUNTER 2025-04-07 10:24 | Outpatient (AMB) | payer OTHER, SELFPAY ==
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
--- OUTSIDE RECORDS SUMMARY | 2025-04-07 11:10 | XMS_ITS | Clinical Summary ---
Author Organization [facility] Address [address] [place] [address] Care Team Providers Care Spanish Instructor Name Role Phone Jasmin Talbot APRN Primary [...] this topic Insurance [facility] Care Teams Spanish Instructor Relationship Specialty Start Date End Date Jasmin Talbot APRN [address] [place] [address] PCP - General Internal Medicine 03/16/22
== END 2025-04-07 10:30 | disposition home or self-care (01) ==
LOC: HO.HOS 10:24
PROVIDERS: Visit Provider Orthopaedic Surgery
DX: M17.11 Unilateral primary osteoarthritis, right knee (principal)
CPT/HCPCS: 98012

== ENCOUNTER 2025-05-06 08:05 | Outpatient (AMB) | payer OTHER, SELFPAY ==
--- OUTSIDE RECORDS SUMMARY | 2025-05-06 08:16 | XMS_ITS | Clinical Summary ---
Author Organization [facility] Address [address] [place] [address] Care Team Providers Care Parking Assistant Name Role Phone Jasmin Talbot APRN Primary [...] patient's age to complete this topic Insurance [facility] Care Teams Parking Assistant Relationship Specialty Start Date End Date Jasmin Talbot APRN [address] [place] [address] PCP - General Internal Medicine 03/16/22
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
[2025-05-06 08:27] VITALS: BMI 49.6
== END 2025-05-06 08:52 | disposition home or self-care (01) ==
LOC: HO.HBS 08:05
PROVIDERS: Visit Provider Surgery
DX: E66.01 Morbid (severe) obesity due to excess calories (principal)
CPT/HCPCS: 99203

== ENCOUNTER 2025-05-23 08:18 | Outpatient (REF) | payer OTHER, SELFPAY ==
--- NOTE | ~2025-05-23 | XR_ITS ---
EXAMINATION: XR CHEST 2 VIEWS HISTORY: E66.01 - Morbid (severe) obesity due to excess calories COMPARISON: Comparison is made with the prior examination dated 01/18/2023. FINDINGS: PA and lateral views of the chest are submitted. The lungs are expanded and clear. There is no pleural effusion, pneumothorax, or pulmonary vascular congestion. The heart is normal in size. There is mild degenerative disc disease of the spine. XR/XR chest 2V IMPRESSION: No acute cardiopulmonary abnormality. Electronically signed by: Lior Hurtado MD 05/25/2025 07:53 AM EDT
--- OUTSIDE RECORDS SUMMARY | 2025-05-23 08:20 | XMS_ITS | Clinical Summary ---
Author Organization [facility] Address [id number] [place] [id number] Care Team Providers Care Hairpiece Stylist Name Role Phone Jasmin Talbot SHAHBAZ Primary [...] 2023-2 5 season) 2024 Influenza Vaccine (#1) 2025 HIB Vaccines Aged Out No longer [...] 5 Years) and At-Risk Patients (6 to 49 Years) Aged Out No longer eligible b ased on patient's age to complete this topic RSV Immunization Patients Un miguel 20 months Aged Out No longer eligible b ased on patient's age to complete this topic Varicella Vaccines Aged Out No longer eligible based on patient's age to complete this topic Care Teams Hairpiece Stylist Relationship Specialty Start Date End Date Jasmin Talbot NP [address] [place] [address] PCP - General Family Medicine 04/21/22
[2025-05-23 09:04] LABS: MANUAL DIFF FLAG NO
[2025-05-23 09:09] LABS: Hematocrit 39.7 % (37.0-47.0); Hemoglobin 13.1 g/dl (12.0-16.0); Imm Gran Abs Auto 0.02 X10*3/uL (0.00-0.03); Imm Gran Pct Auto 0.2 % (0.0-0.4); Lymphocytes Absolute Auto 3.4 X10*3/uL (1.2-4.9); Mean Corpuscular HGB Conc 33.0 g/dl (31.0-35.0); Mean Corpuscular Hemoglobin 26.0 pg (27.0-33.0); Mean Corpuscular Volume 78.9 fL (80.0-98.0); NRBC Abs Auto 0.000 X10*3/uL (0.0-0.012); NRBC Pct Auto 0.0 /100WBC (0.0-0.2); Platelet Count 361 X10*3/uL (160-400); Red Blood Count 5.03 X10*6/uL (4.20-5.50); White Blood Count 11.7 X10*3/uL (4.8-10.8)
[2025-05-23 09:21] LABS: Hemoglobin A1C 124.7890 umol/L; Total Hemoglobin (HGBA1C) 3403.6212 umol/L
[2025-05-23 09:46] LABS: Appearance Urine Clear; Glucose Urine UA Negative (Negative); PH 5.5 (5.0-9.0); Specific Gravity - Urine 1.020 (1.005-1.025); UMIC TRIGGER UACC YES
[2025-05-23 09:49] LABS: UACC Culture Trigger YES
[2025-05-23 09:51] LABS: Alanine Aminotransferase 32 U/L (0-31); Albumin Level 4.0 g/dL (3.5-5.0); Alkaline Phosphatase 67 U/L (39-117); Anion Gap 12 (12-20); Aspartate Amino Transferase 28 U/L (5-31); Blood Urea Nitrogen 11 mg/dL (9-16); Calcium 8.9 mg/dL (8.4-10.2); Carbon Dioxide 25 mmol/L (22-29); Chloride 107 mmol/L (96-108); Cholesterol 151 mg/dL (<200); Estimated Glomerular Filt Rate > 60; HDL Cholesterol 37 mg/dL (>40); Iron 41 mcg/dL (30-160); Percent Iron Saturation 15 % (15-50); Potassium 3.6 mmol/L (3.3-5.1); Sodium 140 mmol/L (135-145); Total Iron Binding Capacity 274 mcg/dL (228-428); Total Protein 7.4 g/dL (6.5-8.0); Triglycerides 101 mg/dL (<150); Unsaturated Iron Binding 233 ug/dL
[2025-05-23 10:11] LABS: Ferritin 30 ng/mL (10-122)
[2025-05-23 10:13] LABS: Folate 9.2 ng/mL (> or = 4.0); Vitamin B12 960 pg/mL (200-900)
== END 2025-05-23 08:19 | disposition home or self-care (01) ==
LOC: HO.XRAY 08:18
PROVIDERS: Visit Provider Surgery
DX: Z00.00 Encounter for general adult medical examination without abnormal findings (principal); E66.01 Morbid (severe) obesity due to excess calories
CPT/HCPCS: 36415; 71046; 80053; 80061; 81001; 82306; 82607; 82728; 82746; 82947; 83036; 83525; 83540; 84425; 84443; 84590; 84630; 85025; 86140; 87086; 87088; 87186

== ENCOUNTER → 2025-05-23 08:24 | Outpatient (BNV) | payer OTHER, SELFPAY | PROVIDERS: Visit Provider Radiology Diagnostic Radiology | DX: E66.01 Morbid (severe) obesity due to excess calories (principal); Z68.42 Body mass index [BMI] 45.0-49.9, adult | CPT/HCPCS: 71046 ==

== ENCOUNTER 2025-05-26 13:32 | Outpatient (REF) | payer OTHER, SELFPAY ==
--- NOTE | 2025-05-26 13:36 | ECG_ITS ---
Test Reason : E66.01 Blood Pressure : */* mmHG Vent. Rate : 59 BPM Atrial Rate : 59 BPM P-R Int : 168 ms QRS Dur : 90 ms QT Int : 422 ms P-R-T Axes : 8 67 39 degrees QTcB Int : 417 ms Sinus bradycardia with sinus arrhythmia Otherwise normal ECG When compared with ECG of 02-Nov-2022 14:24, No significant change was found Referred By: Doron Robb Electronically Signed By: OFELIA RIOS
--- OUTSIDE RECORDS SUMMARY | 2025-05-26 14:53 | XMS_ITS | Clinical Summary ---
Author Organization [facility] Address [id number] [place] [phone] Care Team Providers Care Marketing Effectiveness Manager Name Role Phone Jasmin Talbot SHAHBAZ Primary [...] age to complete this topic Care Teams Marketing Effectiveness Manager Relationship Specialty Start Date End Date Jasmin Talbot NP [address] [place] [address] PCP - General Family Medicine 04/21/22
--- OUTSIDE RECORDS SUMMARY | 2025-05-26 14:53 | XMS_ITS | Clinical Summary ---
Author Organization [facility] Address [address] [place] [id number] Care Team Providers Care Sales Consulting Director Name Role Phone Jasmin Talbot APRN Primary [...] patient's age to complete this topic Insurance [facility] Care Teams Sales Consulting Director Relationship Specialty Start Date End Date Jasmin Talbot APRN [address] [place] [address] PCP - General Internal Medicine 03/16/22
== END 2025-05-26 13:33 | disposition home or self-care (01) ==
LOC: HO.LAB 13:32
PROVIDERS: Visit Provider Surgery
DX: E66.01 Morbid (severe) obesity due to excess calories (principal)
CPT/HCPCS: 36415; 84630; 93005

== ENCOUNTER → 2025-05-26 13:36 | Outpatient (BNV) | payer OTHER, SELFPAY | PROVIDERS: Visit Provider Internal Medicine | DX: I49.9 Cardiac arrhythmia, unspecified (principal); R00.1 Bradycardia, unspecified | CPT/HCPCS: 93010 ==

== ENCOUNTER 2025-05-29 12:00 | Outpatient (AMB) | payer OTHER, SELFPAY ==
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
--- OUTSIDE RECORDS SUMMARY | 2025-05-29 12:38 | XMS_ITS | Clinical Summary ---
Author Organization [facility] Address [id number] [place] [id number] Care Team Providers Care Work Car Operator Name Role Phone Jasmin Talbot SHAHBAZ Primary [...] age to complete this topic Care Teams Work Car Operator Relationship Specialty Start Date End Date Jasmin Talbot NP [address] [place] [address] PCP - General Family Medicine 04/21/22
--- OUTSIDE RECORDS SUMMARY | 2025-05-29 12:38 | XMS_ITS | Clinical Summary ---
Author Organization [facility] Address [address] [place] [id number] Care Team Providers Care Hand Potter Name Role Phone Jasmin Talbot APRN Primary [...] patient's age to complete this topic Insurance [facility] Care Teams Hand Potter Relationship Specialty Start Date End Date Jasmin Talbot APRN [address] [place] [address] PCP - General Internal Medicine 03/16/22
== END 2025-05-29 13:00 | disposition home or self-care (01) ==
LOC: HO.HBST 12:37
PROVIDERS: Visit Provider Counselor Mental Health
DX: F43.20 Adjustment disorder, unspecified (principal); Z71.89 Other specified counseling
CPT/HCPCS: 90791

== ENCOUNTER 2025-06-19 10:19 | Day surgery (SDC) | payer OTHER, SELFPAY ==
--- OUTSIDE RECORDS SUMMARY | 2025-06-02 12:59 | XMS_ITS | Clinical Summary ---
Author Organization [facility] Address [id number] [place] [id number] Care Team Providers Care Scrap Metal Processing Worker Name Role Phone Jasmin Talbot SHAHBAZ Primary [...] Cervical Cancer Screening: P ap Smear 2014 HIV Screening 10/15/2022 Hepatitis C Screening 10/15/2022 Social Influencers of Health Screening 10/15/2022 COVID-19 Vaccine ( - 2023-2 5 season) 2024 Depression Screening 11/12/2024 Influenza Vaccine (#1) 2025 HIB Vaccines Aged [...] age to complete this topic Care Teams Scrap Metal Processing Worker Relationship Specialty Start Date End Date Jasmin Talbot NP [address] [place] [address] PCP - General Family Medicine 04/21/22
--- OUTSIDE RECORDS SUMMARY | 2025-06-02 12:59 | XMS_ITS | Clinical Summary ---
Author Organization [facility] Address [address] [place] [id number] Care Team Providers Care Coat Cutter Name Role Phone Jasmin Talbot APRN Primary [...] this topic Insurance [facility] Care Teams Coat Cutter Relationship Specialty Start Date End Date Jasmin Talobt APRN [address] [place] [address] PCP - General Internal Medicine 03/16/22
--- OUTSIDE RECORDS SUMMARY | 2025-06-02 12:59 | XMS_ITS | Clinical Summary ---
Author Organization [facility] Address [address] [place] [address] Care Team Providers Care Shift Superintendent Caustic Cresylate Name Role Phone Jasmin Talbot NP Primary Care Provider + Allergies No known active allergies Medications Medication Sig Dispensed Refills Start Date End Date Status ibuprofen (ADVIL,MOTRIN) 200 MG tablet Take 3 tablets (600 mg total) by mouth every 6 (six) hours as needed for pain. 30 tablet 0 01/12/2019 Active vitamin D3 (VITAMIN D3) 10 MCG (400 UNIT) tablet Take 500 Units by mouth once a week. 0 Active albuterol 108 (90 Base) MCG/ACT inhaler Inhale 2 puffs into the lungs every 4 (four) hours as needed for wheezing or shortness of breath. 90 g 0 08/03/2021 Active Active Problems No known active problems Family History Medical History Relation Name Comments Lung cancer Neg Hx Social History Tobacco Use Types Packs/Day Years Used Date Smoking Tobacco: Former Cigarettes 0.5 Smokeless Tobacco: Never Alcohol Use Standard Drinks/Week Comments Yes 0 (1 standard drink = 0.6 oz pur e alcohol) social Sex and Gender Information Value Date Recorded Sex Assigned at Female 01/12/2019 2:13 PM EST Gender Identity Female 01/12/2019 2:13 PM EST Sexual Orientation Straight 03/16/2021 5: 16 PM EDT Job Start Date Occupation Industry Not on file Not on file Not on file Last Filed Vital Signs Vital Sign Reading Time Taken Comments Blood Pressure 170/95 04/22/2022 2:20 AM EDT Pulse 66 04/22/2022 2:20 AM EDT Temperature 36.5 C (97.7 F) 04/22/2022 2:20 AM EDT Respiratory Rate 18 04/22/2022 2:20 AM EDT Oxygen Saturation 100% 04/22/2022 2:20 AM EDT Inhaled Oxygen Concentration - - Weight 127 kg (280 lb) 08/03/2021 10:47 PM EDT Height 172.7 cm (5' 8 ) 08/03/2021 10:47 PM EDT Body Mass Index 42.57 08/03/2021 10:47 PM EDT Plan of Treatment Health Maintenance Due Date Last Done Comments Hepatitis B Vaccines (1 of 3 - 3-dose series) 1993 Hepatitis C Screening 1993 COVID-19 Vaccine (#1) 1993 Depression Screening 2005 Preventative Health Evaluation 2011 DTap / Tdap / Td (1 - Tdap) 2012 Cervical Cancer Screening (P ap Smear) 2014 Influenza Vaccine (#1) 2025 Pneumococcal Vaccine Aged Out No long er eligible based on patient's age to complete this topic RSV Ped < 20 months Aged Out No longe r eligible based on patient's age to complete this topic Care Teams Shift Superintendent Caustic Cresylate Relationship Specialty Start Date End Date Jasmin Talbot NP [address] [place] [address] PCP - General Family Medicine 04/21/22
[2025-06-16 14:29] VITALS: BMI 49.6
--- NOTE | 2025-06-17 14:36 | P.CONAN_ITS ---
Documented by User: Nichole Blue NP 06/17/25 14:36 HPI - Anesthesia Eval Consult details Narrative: 30yo F for Upper Endoscopy BMI 49.6 PMFSH Active Problems Active Problems: All Active Problems Vitamin B1 deficiency (Acute) Osteoarthritis of right knee (Acute) Elevated AST (SGOT) (Acute) Vitamin D deficiency (Acute) Low serum HDL (Acute) Elevated WBC count (Acute) Tear of medial meniscus of right knee (Acute) Left knee pain (Acute) Lumbosacral spondylosis (Acute) Effusion, right knee (Acute) Other intervertebral disc degeneration, thoracolumbar region (Acute) Decreased hearing of both ears (Acute) UTI (urinary tract infection) (Acute) Annual physical exam (Acute) Right knee pain (Acute) Asthma (Acute) DJD (degenerative joint disease) (Acute) Morbid obesity (Acute) Morbid obesity with BMI of 45.0-49.9, adult (Acute) Past Medical History Medical History Decreased hearing of both ears Osteoarthritis Asthma DJD (degenerative joint disease) Morbid obesity Morbid obesity with BMI of 45.0-49.9, adult Family History Family History Father Allergies Mother Diabetes Other Family history non-contributory Surgical History Surgical History No pertinent past surgical history Social History Social History Household Members: Spouse Housing: Apartment Are you a primary customer care team coach to a significant other at home: No Do you presently have visiting nurse or other home services: No Alcohol intake: never Patient Tobacco Use Status: Former Tobacco user Tobacco use type: Cigarette Years Smoked: 13 e-Cigarette/Vaping Use: Currently Using Second Hand Smoke Exposure: No Use of substances other than those prescribed or required for medical reasons: No Have you been hit, kicked, punched, or otherwise hurt by someone within the past year? 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 [employer] Cognitive needs: No Hearing needs: No Vision needs: Yes (Glasses) Meds Allergies Allergy/AdvReac Type Severity Reaction Status Date / Time No Known Allergies (No Known Allergy Verified 06/19/25 10:51 Allergies*) Home Medications ?Medication ?Instructions ?Recorded ?Confirmed ?Last Taken ?Type omega-3 fatty acids 1,200 mg PO 06/19/25 Unknow n History Exam Height,Weight and Vital Signs: Height 5 ft 6 in Weight 139.423 kg Assessment and Plan Assessment Anesthesia Assessment: Chart Reviewed Documented by User: Shefali De Leon MD 06/19/25 11:35 PMFSH Past Medical History Medical History Decreased hearing of both ears Osteoarthritis Asthma DJD (degenerative joint disease) Morbid obesity Morbid obesity with BMI of 45.0-49.9, adult Family History Family History Father Allergies Mother Diabetes Other Family history non-contributory Surgical History Surgical History No pertinent past surgical history History of Problems with Anesthesia: No Social History Social History Household Members: Spouse Housing: Apartment Are you a primary customer care team coach to a significant other at home: No Do you presently have visiting nurse or other home services: No Alcohol intake: never Patient Tobacco Use Status: Former Tobacco user Tobacco use type: Cigarette Years Smoked: 13 e-Cigarette/Vaping Use: Currently Using Second Hand Smoke Exposure: No Use of substances other than those prescribed or required for medical reasons: No Have you been hit, kicked, punched, or otherwise hurt by someone within the past year? 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 [employer] Cognitive needs: No Hearing needs: No Vision needs: Yes (Glasses) Meds Allergies Allergy/AdvReac Type Severity Reaction Status Date / Time No Known Allergies (No Known Allergy Verified 06/19/25 10:51 Allergies*) Home Medications ?Medication ?Instructions ?Recorded ?Confirmed ?Last Taken ?Type omega-3 fatty acids 1,200 mg PO 06/19/25 Unknow n History Exam Airway Mallampati Class: III TM Dist: >3cm Neck ROM: Full Loose/Missing/Broken Teeth: No Heart: RRR Lungs: CTA Assessment and Plan Assessment Anesthesia Assessment: Anesthesia Plan Discussed Final Anesthetic Review History of Problems with Anesthesia: No NPO: Yes ASA Class: III Final Preanesthetic Review: Meds/Allgs Chart Reviewed, Consent Obtained/Reviewed and Anes Risks/Benef Reviewed Patient Risk: Intermediate Procedure Risk: Intermediate Anesthetic Plan Anesthetic Plan: MAC: Disposition: Standard PACU
[2025-06-19 10:50] LABS: UPreg QC Valid YES
[2025-06-19 10:53] VITALS: BP 150/100; PULSE 72; RESP 14; TEMP 36.6; O2SAT 96; BMI 47.0
[2025-06-19] MEDS: Lactated Ringers 1,000 ML 100 ML IVCONT (11:05)
--- NOTE | 2025-06-19 11:16 | P.BOP_ITS ---
Brief Operative Note Date of Service: 06/19/25 Pre-op diagnosis: Morbid obesity Post-op diagnosis: same Procedure: PROCEDURE DATE: 06/19/2025 PREOPERATIVE DIAGNOSIS: Morbid obesity POSTOPERATIVE DIAGNOSIS: ?Same as above. Normal endoscopy PROCEDURE: Zrixyfyw-ivouhu-viutbcbahqcv with biopsies Surgeon: Aaron Robb M.D.. Ph.D. Bioinformatics Engineer: None ? Anesthesia: IV sedation Estimated blood loss: ?Minimal FINDINGS AND PROCEDURE: ? OPERATIVE INDICATIONS: ?The patient is a 67 year old female known to me who is interested in bariatric surgery. Based on this information I recommended an upper endoscopy to evaluate the stomach's anatomy. Risks and complications of the surgery were discussed with the patient in advance particularly the possibility of perforation or bleeding that may require surgical intervention. The patient understood the risks and was in agreement with the plan. ? PROCEDURE: After informed consent was obtained by the patient, the patient was ?transferred to the Operating Room and was placed in the supine position.? After successful induction of IV sedation, a mouth block was inserted and the patient was placed in the left lateral decubitus position. An upper endoscopy was performed next, the oropharynx and esophagus appeared within the normal limits. There was a no hiatal hernia. The z-line was smooth. Two biopsies were obtained from the distal esophagus 2-3 cm proximal to the GE junction and two additional biopsies from the GE junction. The stomach was entered and it appeared to be of normal size. There was no gastritis. There was no stricture or ulcer. A biopsy was obtained from the antrum. No significant bleeding was noted from any of the biopsy sites. Retroflexion of the scope confirmed a normal GE junction. The scope was then advanced into the duodenum which appeared to be normal as well. At that point the duodenum ?and the stomach were decompressed and the scope was withdrawn from the patient's mouth. The patient extubated and was transferred in stable condition to the Recovery Room for further care. I was present and performed all steps of the procedure. There were no residents to assist with this case. Ankur Robb M.D., Ph.D. Surgeon: Doron Robb MD Anesthesia: MAC Was an Bioinformatics Engineer used for this Procedure?: No Estimated blood loss (mL): 0 IV fluids (mL): 400 Urine output (mL): 0 (No Carrera to record output) Pathology: other (1) antrum x1, 2) fundus x1, 3) GE junction x2, 4) distal esophagus x2) Condition: stable Disposition: PACU
--- NOTE | 2025-06-19 11:16 | MHC.SHP ---
Pre-Procedural Eval Section A - 24 Hr Update-Section A only Date of Service: 06/19/25 The patient is an INPATIENT: No The patient has been examined within 24 hours of the surgical procedure. The History & Physical has been completed within 30 days and I have reviewed it.: Yes Section B - Complete if H&P > 30 days Chief Complaint: Morbid (severe) obesity due to excess calories Relevant Family History (Specify if Yes): No Relevant Social History: None Present Medications: None Medical History: No relevant PMH History of Previous Operations: No relevant previous surgery Allergies: Allergies Allergy/AdvReac Type Severity Reaction Status Date / Time No Known Allergies (No Known Allergy Verified 06/19/25 10:51 Allergies*) Review of Systems Sugical H&P ROS: Negative: Constitution, Cardiovascular, Respiratory, Neurological, Psychiatric, Hem-Onc, Allergic/Immunologic, Gastrointestinal, Genitourinary, Musculoskeletal, Integumentary, Endocrine and Eyes/Ears/Nose/Throat Exam Surgical H&P Exam: Normal: HEENT, Normal: Heart, Normal: Lungs, Normal: Extremities, Normal: Abdomen, Normal: Skin and Normal: Neurological Plan Diagnosis/Plan: Unchanged (EGD to assess the stomach's anatomy. Risks of bleeding and perforation were discussed with the patient and she is in agreement with the plan.) I have reviewed the history and physical and performed a pertinent physical examination on my patient. No changes have occurred unless specified. Time Spent With Patient Time: Total time managing care of this patient today ____ minutes.
[2025-06-19 12:10] VITALS: BP 112/60; PULSE 74; RESP 18; TEMP 36.2; O2SAT 98
[2025-06-19 12:25] VITALS: BP 140/95; PULSE 67; RESP 18; TEMP 36.1; O2SAT 98
== END 2025-06-19 12:49 | disposition home or self-care (01) ==
PROVIDERS: Nurse Practitioner; Visit Provider Surgery
PROC: 0DJ08ZZ Inspection of Upper Intestinal Tract, Via Natural or Artificial Opening Endoscopic (ICD-10-PCS; CPT 43235; principal; 2025-06-19 12:00)
DX: E66.01 Morbid (severe) obesity due to excess calories (principal); Z68.42 Body mass index [BMI] 45.0-49.9, adult; J45.909 Unspecified asthma, uncomplicated; M19.90 Unspecified osteoarthritis, unspecified site; H91.93 Unspecified hearing loss, bilateral; Z79.899 Other long term (current) drug therapy; Z87.891 Personal history of nicotine dependence
CPT/HCPCS: 43239; 81025; 88305; 88313; 88342; J2003; J2704

== ENCOUNTER → 2025-06-19 10:19 | Outpatient (BNV) | payer OTHER, SELFPAY | PROVIDERS: Visit Provider Surgery | DX: E66.01 Morbid (severe) obesity due to excess calories (principal); Z68.42 Body mass index [BMI] 45.0-49.9, adult | CPT/HCPCS: 43239 ==

== ENCOUNTER 2025-06-22 13:14 | Outpatient (AMB) | payer OTHER, SELFPAY ==
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
--- OUTSIDE RECORDS SUMMARY | 2025-06-22 13:25 | XMS_ITS | Clinical Summary ---
Author Organization [facility] Address [address] [place] [address] Care Team Providers Care Auto Body Man Name Role Phone Jasmin Talbot NP Primary [...] age to complete this topic Care Teams Auto Body Man Relationship Specialty Start Date End Date Jasmin Talbot NP [address] [place] [address] PCP - General Family Medicine 04/21/22
--- OUTSIDE RECORDS SUMMARY | 2025-06-22 13:25 | XMS_ITS | Clinical Summary ---
Author Organization [facility] Address [address] [place] [address] Care Team Providers Care Magistrate Name Role Phone Jasmin Talbot SHAHBAZ Primary [...] age to complete this topic Care Teams Magistrate Relationship Specialty Start Date End Date Jasmin Talbot NP [address] [place] [address] PCP - General Family Medicine 04/21/22
--- OUTSIDE RECORDS SUMMARY | 2025-06-22 13:25 | XMS_ITS | Clinical Summary ---
Author Organization [facility] Address [address] [place] [id number] Care Team Providers Care Sales Engineer Account Manager Name Role Phone Jasmin Talbot APRN Primary [...] patient's age to complete this topic Insurance [facility] Care Teams Sales Engineer Account Manager Relationship Specialty Start Date End Date Jasmin Talbot APRN [address] [place] [address] PCP - General Internal Medicine 03/16/22
== END 2025-06-22 14:19 | disposition home or self-care (01) ==
LOC: HO.HBST 13:14
PROVIDERS: Visit Provider Counselor Mental Health
DX: F43.20 Adjustment disorder, unspecified (principal); Z71.89 Other specified counseling
CPT/HCPCS: 90837

== ENCOUNTER 2025-08-04 07:56 | Outpatient (REF) | payer OTHER, SELFPAY ==
--- NOTE | ~2025-08-04 | US_ITS ---
EXAMINATION: US COMPLETE ABDOMEN WITH LIVER ELASTOGRAPHY CLINICAL INFORMATION: Morbid obesity due to excess calories. COMPARISON: None available. TECHNIQUE: Real-time imaging of the abdominal viscera. Noninvasive ultrasound liver fibrosis assessment is performed using Arnoldo ElastPQ point quantification shear wave elastography (pSWE) with a C5-2 MHz transducer. Multiple elastography samples are obtained. FINDINGS: Study somewhat limited secondary to body habitus. PANCREAS: The visualized pancreatic head and body are normal in appearance. The remainder of the pancreas is obscured from visualization by the overlying bowel gas. ABDOMINAL AORTA: No aortic aneurysm is seen. INFERIOR VENA CAVA: Visualized portions are normal. LIVER: Liver is mildly increased in size. There is normal contour. There is diffusely increased hepatic echogenicity. There is no suspicious hepatic lesion identified. There is no intrahepatic biliary dilatation. The right lobe measures 21.2 cm in length. The left lobe measures 10.0 cm in length. Portal flow is towards the liver (hepatopetal). Shear wave liver elastography median stiffness is 1.52 m/s (reference: normal median stiffness is 1.3 m/s or less). IQR/median stiffness to assess sampling precision is 0.05 (reference: good quality data set is IQR/median stiffness of 0.15 or less). This indicates a quality data set. GALLBLADDER: The gallbladder is physiologically distended without evidence of stones, sludge, wall thickening or pericholecystic fluid. There is a solitary polyp measuring 5 x 4 x 6 mm. No recommended follow-up due to small size. COMMON BILE DUCT: Normal in caliber measuring 0.4 cm in diameter. RIGHT KIDNEY: No hydronephrosis. No renal calculi or focal parenchymal lesions. The kidney measures 14.3 cm in maximum dimension. LEFT KIDNEY: Limited eval due to patient habitus. No gross hydronephrosis. No definite renal calculi or focal parenchymal lesions. The kidney measures 9.6 cm in maximum dimension. SPLEEN: Unremarkable. The spleen measures 12.9 cm in maximum dimension. FREE FLUID: None seen. US/US abdomen comp w elastography IMPRESSION: 1. Mild hepatomegaly and diffusely increased hepatic echogenicity, most likely representing steatosis. No suspicious liver lesion. 2. Liver elastography: In the absence of other known clinical signs, measurements rule out compensated advanced chronic liver disease. If there are known clinical signs, further testing may be needed for confirmation. 3. Left kidney is significantly smaller than the right, uncertain significance. Further investigation with CT exam could be pursued if felt warranted. 4. Small gallbladder polyp measuring up to 6 mm. No follow-up recommended given small size. 5. Remainder of the examination is normal. REFERENCE: Society of Radiologists in Ultrasound Liver Stiffness Thresholds (2019): LIVER STIFFNESS THRESHOLDS: *Liver Stiffness equal or less than 1.3 m/s: High probability of being normal. *Liver Stiffness less than 1.7 m/s: In the absence of other known clinical signs, rules out compensated advanced chronic liver disease. *Liver Stiffness 1.7-2.1 m/s: Suggestive of compensated advanced chronic liver disease but need further test for confirmation. *Liver Stiffness over 2.1 m/s: Rules in compensated advanced chronic liver disease. *Liver Stiffness over 2.4 m/s: Suggestive of clinically significant portal hypertension. QUALITY OF DATA SET: *IQR/Median value equal or less than 0.15 implies a quality data set. *IQR/Median value over 0.15 implies a poor quality data set. SIGNIFICANT CHANGE FROM PRIOR EXAM: Significant change if liver stiffness measurement is 10% or greater from prior exam. OTHER CONSIDERATIONS: The stage of liver fibrosis may be overestimated in the setting of acute hepatitis, liver inflammation, elevated liver function tests, hepatic vascular congestion, obstructive cholestasis, non-fasting state, and infiltrative diseases such as amyloidosis and lymphoma. In some patients with NAFLD, the liver stiffness thresholds for compensated advanced chronic liver disease may be lower. In causes other than viral hepatitis and NAFLD, liver stiffness thresholds are not well established. Electronically signed by: Haris Mas MD 08/04/2025 08:58 AM EDT
--- OUTSIDE RECORDS SUMMARY | 2025-08-04 08:00 | XMS_ITS | Clinical Summary ---
Author Organization [facility] Address [address] [place] [id number] Care Team Providers Care Engineering Clerk Name Role Phone Jasmin Talbot APRN Primary [...] (1 of 3 - 19+ 3-dose series) 12/2011 Pneumococcal Vaccine: Pediat robbie (0-5 Years) and At-Risk Patients (6 to 49 Years) (1 of 2 - PCV) 2012 Pap Smear (Ages 21-65) 2014 HPV Vaccines (1 - 3-dose SCDM series) 2020 Influenza Vaccine 06/12/2025 COVID-19 Vaccine ( season) 2025 Insurance [facility] Care Teams Engineering Clerk Relationship Specialty Start Date End Date Jasmin Talbot APRN [address] [place] [address] PCP - General Internal Medicine 03/16/22
--- OUTSIDE RECORDS SUMMARY | 2025-08-04 08:00 | XMS_ITS | Clinical Summary ---
Author Organization [facility] Address [address] [place] [address] Care Team Providers Care Endocrinology Physician Name Role Phone Jasmin Talbot NP Primary [...] age to complete this topic Care Teams Endocrinology Physician Relationship Specialty Start Date End Date Jasmin Talbot NP [address] [place] [address] PCP - General Family Medicine 04/21/22
--- OUTSIDE RECORDS SUMMARY | 2025-08-04 08:00 | XMS_ITS | Clinical Summary ---
Author Organization [facility] Address [address] [place] [address] Care Team Providers Care Paper Maker Name Role Phone Jasmin Talbot SHAHBAZ Primary [...] 10/15/2022 Social Influencers of Health Screening 10/15/2022 Depression Screening 11/12/2024 COVID-19 Vaccine ( - 2023-2 5 season) 2025 Influenza Vaccine (#1) 2025 HIB Vaccines Aged [...] age to complete this topic Care Teams Paper Maker Relationship Specialty Start Date End Date Jasmin Talbot NP PCP - General Family Medicine 04/21/22
== END 2025-08-04 07:57 | disposition home or self-care (01) ==
LOC: HO.US 07:56
PROVIDERS: Visit Provider Surgery
DX: E66.01 Morbid (severe) obesity due to excess calories (principal)
CPT/HCPCS: 76700; 76981

== ENCOUNTER → 2025-08-04 07:58 | Outpatient (BNV) | payer OTHER, SELFPAY | PROVIDERS: Visit Provider Radiology Diagnostic Radiology | DX: K82.4 Cholesterolosis of gallbladder (principal); R16.0 Hepatomegaly, not elsewhere classified | CPT/HCPCS: 76700 ==

== ENCOUNTER 2025-08-21 09:42 | Outpatient (REF) | payer OTHER, SELFPAY ==
--- NOTE | ~2025-08-21 | FL_ITS ---
EXAMINATION: XR FLUOROSCOPY UPPER GI WITH AIR CLINICAL INFORMATION: Severe obesity due to excess calories. COMPARISON: None available. TECHNIQUE: Routine upper GI air contrast study was performed in upright and lying position. FINDINGS: Following oral administration of thick barium and effervescent granules there is normal propagation bolus from the oral cavity through the pharynx, esophagus into stomach without obstruction, narrowing or stricture. The gastroesophageal junction is widely patent. No gastroesophageal reflux or hiatal hernia seen. On placing patient supine and prone lying the course, caliber and peristalsis of the stomach, duodenal bulb and sweep is normal. The mucosal pattern of the esophagus, stomach and the duodenum is normal. There is increased gastric secretions seen. FLUOROSCOPY TIME: 2 minutes and 30 seconds DOSE AREA PRODUCT: 4233 uGy-m2 (microgray-meter squared) FL/FL upper GI w air IMPRESSION: Mild increased gastric secretions otherwise remarkable upper GI air contrast study.. Electronically signed by: Francisco Gutiérrez MD 08/21/2025 11:40 AM EDT
--- OUTSIDE RECORDS SUMMARY | 2025-08-21 10:24 | XMS_ITS | Clinical Summary ---
Author Organization [facility] Address [address] [place] [address] Care Team Providers Care Fiscal Clerk Name Role Phone Jasmin Talbot NP Primary [...] age to complete this topic Care Teams Fiscal Clerk Relationship Specialty Start Date End Date Jasmin Talbot NP [address] [place] [address] PCP - General Family Medicine 04/21/22
--- OUTSIDE RECORDS SUMMARY | 2025-08-21 10:24 | XMS_ITS | Clinical Summary ---
Author Organization [facility] Address [address] [place] [address] Care Team Providers Care Director Energy Name Role Phone Jasmin Talbot SHAHBAZ Primary [...] Cervical Cancer Screening: P ap Smear 2014 HPV Vaccines (1 - 3-dose SCD M series) 2020 HIV Screening 10/15/2022 Hepatitis C Screening 10/15/2022 Social Influencers of Health Screening 10/15/2022 Depression Screening 11/12/2024 COVID-19 Vaccine ( - 2023-2 5 season) 2025 Influenza Vaccine (#1) 2025 RSV Immunization Adult Patie nts (1 - 1-dose 75+ series) 2068 HIB Vaccines Aged Out No longer eligi [...] age to complete this topic Care Teams Director Energy Relationship Specialty Start Date End Date Jasmin Talbot NP PCP - General Family Medicine 04/21/22
--- OUTSIDE RECORDS SUMMARY | 2025-08-21 10:24 | XMS_ITS | Clinical Summary ---
Author Organization [facility] Address [address] [place] [address] Care Team Providers Care Architectural Manager Name Role Phone Jasmin Talbot APRN [...] Pap Smear (Ages 21-65) 2014 Influenza Vaccine 06/12/2025 COVID-19 Vaccine ( season) 2025 HPV Vaccines (No Doses Required) Completed Insurance [facility] Care Teams Architectural Manager Relationship Specialty Start Date End Date Jasmin Talbot APRN [address] [place] [address] PCP - General Internal Medicine 03/16/22
== END 2025-08-21 09:43 | disposition home or self-care (01) ==
LOC: HO.XRAY 09:42
PROVIDERS: Visit Provider Surgery
DX: E66.01 Morbid (severe) obesity due to excess calories (principal)
CPT/HCPCS: 74246

== ENCOUNTER → 2025-08-21 09:44 | Outpatient (BNV) | payer OTHER, SELFPAY | PROVIDERS: Visit Provider Radiology Diagnostic Radiology | DX: E66.01 Morbid (severe) obesity due to excess calories (principal); Z68.42 Body mass index [BMI] 45.0-49.9, adult | CPT/HCPCS: 74246 ==

== ENCOUNTER 2025-09-21 08:09 | Outpatient (AMB) | payer OTHER, SELFPAY ==
--- OUTSIDE RECORDS SUMMARY | 2025-09-21 08:31 | XMS_ITS | Clinical Summary ---
Author Organization [facility] Address [address] [place] [address] Care Team Providers Care Insights Strategist Name Role Phone Jasmin Talbot SHAHBAZ Primary [...] age to complete this topic Care Teams Insights Strategist Relationship Specialty Start Date End Date Jasmin Talbot NP PCP - General Family Medicine 04/21/22
--- OUTSIDE RECORDS SUMMARY | 2025-09-21 08:31 | XMS_ITS | Clinical Summary ---
Author Organization [facility] Address [address] [place] [address] Care Team Providers Care Tetryl Dissolver Operator Name Role Phone Jasmin Talbot APRN [...] HPV Vaccines (No Doses Required) Completed Insurance [facility] Care Teams Tetryl Dissolver Operator Relationship Specialty Start Date End Date Jasmin Talbot APRN [address] [place] [address] PCP - General Internal Medicine 03/16/22
--- OUTSIDE RECORDS SUMMARY | 2025-09-21 08:31 | XMS_ITS | Clinical Summary ---
Author Organization [facility] Address [address] [place] [address] Care Team Providers Care Environmental Field Services Technician Name Role Phone Jasmin Talbot NP Primary [...] age to complete this topic Care Teams Environmental Field Services Technician Relationship Specialty Start Date End Date Jasmin Talbot NP [address] [place] [address] PCP - General Family Medicine 04/21/22
--- NOTE | 2025-09-21 11:30 | A.OFFVIS_ITS ---
VS Expanded 09/21/25 11:44 Height 5 ft 6 in Weight 285 lb 2 oz BMI 46.0 Body Fat % 61.1 Body Fat Mass 174.2 Fat Free Mass 110.8 Visceral Fat Rating 26 Body Water % 26.7 Body Water Mass 76.1 Basal Metabolic Rate/Score 1,457 Intake Visit Reasons: TV Pre Op LSG 10/06/25 Allergies No Known Allergies (No Known Allergies*) Allergy (Verified 09/21/25 11:31) Medication List - Last Reconciled 09/21/25 by Doron Robb MD albuterol sulfate 90 mcg/actuation 2 inhalations inhalation Q4-6H PRN cholecalciferol (vitamin D3) 25 mcg PO DAILY meloxicam 15 mg PO DAILY omega-3 fatty acids 1,200 mg PO ondansetron 4 mg PO Q6H PRN pantoprazole 40 mg PO DAILY polyethylene glycol 3350 17 grams PO DAILY sucralfate 10 mL PO BID thiamine HCl (vitamin B1) 100 mg PO DAILY HPI HPI TV Pre Op LSG 10/06/25: Details: Start time: 11.27am, End time: 11.57am ?I spent 25 minutes speaking with the patient on the phone plus an additional 5 minutes reviewing and updating records for a total of 30 minutes HPI Comments Details: Overall weight loss: 22.4lbs, or 7.3% TBWL Is doing 2 HALF size Premier bottles, one Pure protein bar and one meal (10 for ks each) Exercise: is doing stationary bike x5/wk for 400-500 calories PFSH Medical History Decreased hearing of both ears Osteoarthritis Asthma DJD (degenerative joint disease) Morbid obesity Morbid obesity with BMI of 45.0-49.9, adult Surgical History No pertinent past surgical history Family History Father Allergies Mother Diabetes Other Family history non-contributory Social History Household Members: Spouse Housing: Apartment Are you a primary managed care director to a significant other at home: No Do you presently have visiting nurse or other home services: No Alcohol intake: never Patient Tobacco Use Status: Former Tobacco user Tobacco use type: Cigarette Years Smoked: 13 e-Cigarette/Vaping Use: Currently Using Second Hand Smoke Exposure: No service: No Current occupational status: employed 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 [employer] Cognitive needs: No Hearing needs: No Vision needs: Yes (Glasses) Female Reproductive History Menstrual Age of Menarche: 11 Telehealth Telehealth Telehealth Platform: Telephone Location of provider rendering services: practice address Location of patient: address on file Patient Identification confirmed using: Name, : Yes Telehealth method: voice only Patient verbally consented to treatment: Yes Patient verbally consented to billing insurance company: Yes Patient informed of any privacy concerns related to visit: Yes Minutes spent on Phone/Video with Pt.: 30 Assessment & Plan Assessment & Plan (1) Morbid obesity: Code(s): E66.01 - Morbid (severe) obesity due to excess calories Category: Medical Plan: 1. Plan for lap sleeve gastrectomy including upper GI endoscopy. All tests has been completed and reviewed and the patient is cleared for the surgery. ?If diaphragmatic or ventral hernias are present at time of surgery, these will be repaired laparoscopically as well. 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 I emphasized the importance of close follow-up, adherence to instructions and good communication. So far she has proven to be an excellent communicator and very compliant with all our directions accomplishing a great weight loss. I believe that she is an excellent candidate and she is ready. 2. Preop prescriptions were provided and explained the purpose of each one. Need to be purchased preop. Start Pantoprazole now as you get it from the pharmacy, 1 pill per day. Sucralfate and Zofran are for after surgery as needed. 3. Bowel prep: please do 7 packets ?of Miralax mixing each one with a an 8oz glass of water, crystal light, gatorade zero, or propel ?on 10/04/25 and the same amount on 10/05/25. The Miralax you begin with one packet at a time in 8oz water or crystal light, gatorade zero, or propel ?as early in the day as you can and you do them back to back until you finish them. Continue the protein shakes during ?the bowel prep. 4. Needs to purchase 1oz medicine cups . 5. Needs to purchase Children's liquid Tylenol for postop pain control. 6. She needs to stop the Meloxicam as of tomorrow 09/22/25. Avoid aspirin, motrin, Advil, Aleve, Meloxicam, Excedrin, Ibuprofen, Naproxyn. Tylenol is OK. 7. She needs to purchase the Celebrate multivitamins from the hospital's gift shop, chewable or pills whatever you prefer. 8. Will do basic preop blood work-up on Sunday09/26/25 8am to 11pm 9. Importance of adherence to postop folllow-up and recommendations was underscored and she understands that. 10. Stop food and bars as of tomorrow 09/22/25 and continue with 4 liquid Premier or Fairlife protein shakes (8oz and NOT the whole bottle) at 8am-10am, 11am-1pm, 2pm-4pm, 5pm-7pm and one more WHOLE BOTTLE Premier or Fairlife protein shake at 8pm-10pm 11. No soups, broths or V8 12. The patient's?medical?history has been reviewed and they are considered low risk for post op DVT and therefore DVT prophylaxis is not considered necessary. Travel after surgery was reviewed. The patient has not disclosed any travel plans during the first 30 days after surgery and they have been advised that within the first 30 days after surgery any bus, plane, train or car travel over 2 hours in duration is contraindicated due to the possibility of developing blood clots from immobility. Any travel, needs to include periods of ambulation of 10 minutes in duration every 2 hours.? Patient was instructed to discuss any plans for travel during this period with their bariatric surgeon.? 13. Please take at the day of surgery the following medications: NONE 14. Stop any control pills and don't use them for one month after surgery 15. Absolutely no smoking or vaping, or marijuana until the surgery and for at least the first 4 weeks. Only nicotine patches are allowed. 16. Send me weight measurements on 09/24/25 and 10/01/25, and then on Rosi 11/25/25, the day of surgery before you go to the hospital. 17. Avoid any steroids by mouth for any reason. Let me know if someone prescribes them to you 18. These instructions supersede anything else you read in the handbook, anything you watched in videos or classes or you were told by any other provider. If there is any conflict, you follow the above instructions and nothing else. Orders: Orders Insulin Today E66.01 - Morbid (severe) obesity due to excess calories Complete Blood Count Auto Diff Today E66.01 - Morbid (severe) obesity due to excess calories C Reactive Protein Today E66.01 - Morbid (severe) obesity due to excess calories Comprehensive Met. Panel Today E66.01 - Morbid (severe) obesity due to excess calories Type and Screen Today E66.01 - Morbid (severe) obesity due to excess calories TSH reflex Free T4 Today E66.01 - Morbid (severe) obesity due to excess calories Lipid Panel Today E66.01 - Morbid (severe) obesity due to excess calories Hemoglobin A1c Today E66.01 - Morbid (severe) obesity due to excess calories Partial Thromboplastin Time Today E66.01 - Morbid (severe) obesity due to excess calories Prothrombin Time INR Today E66.01 - Morbid (severe) obesity due to excess calories Medications: New ondansetron Only take one every 12 hours as needed if you have nausea 4 mg PO Q6H PRN 20 tabs 0RF nausea and vomiting R11.0 - Nausea pantoprazole 40 mg PO DAILY 90 tabs 0RF K21.9 - Gastro-esophageal reflux disease without esophagitis sucralfate 10 mL PO BID 600 mL 2RF K21.9 - Gastro-esophageal reflux disease without esophagitis polyethylene glycol 3350 Mix each measuring cup with 8oz of water, Crystal light, or Gatorade zero, or Propel and do 7 measuring cups on 10/04/25 and another 7 measuring cups on 10/05/25 17 grams PO DAILY 238 grams 0RF Z01.818 - Encounter for other preprocedural examination
[2025-09-21 11:44] VITALS: BMI 46.0
== END 2025-09-21 11:59 | disposition home or self-care (01) ==
LOC: HO.HBS 08:09
PROVIDERS: Visit Provider Surgery
DX: E66.01 Morbid (severe) obesity due to excess calories (principal)
CPT/HCPCS: 99214

== ENCOUNTER 2025-09-26 08:55 | Outpatient (REF) | payer OTHER, SELFPAY ==
--- OUTSIDE RECORDS SUMMARY | 2025-09-26 08:59 | XMS_ITS | Clinical Summary ---
Author Organization [facility] Address [address] [place] [address] Care Team Providers Care Escalator Mechanic Name Role Phone Jasmin Talbot APRN Primary [...] HPV Vaccines (No Doses Required) Completed Insurance [facility] Care Teams Escalator Mechanic Relationship Specialty Start Date End Date Jasmin Talbot APRN [address] [place] [address] PCP - General Internal Medicine 03/16/22
--- OUTSIDE RECORDS SUMMARY | 2025-09-26 08:59 | XMS_ITS | Clinical Summary ---
Author Organization [facility] Address [address] [place] [address] Care Team Providers Care Wafer Fab Technician Name Role Phone Jasmin Talbot SHAHBAZ Primary [...] Screening 10/15/2022 Depression Screening 11/12/2024 COVID-19 Vaccine (1 - 2024-2 6 season) 2025 Influenza Vaccine (#1) 2025 RSV [...] age to complete this topic Care Teams Wafer Fab Technician Relationship Specialty Start Date End Date Jasmin Talbot NP PCP - General Family Medicine 04/21/22
--- OUTSIDE RECORDS SUMMARY | 2025-09-26 09:00 | XMS_ITS | Clinical Summary ---
Author Organization [facility] Address [address] [place] [address] Care Team Providers Care Post Anesthesia Room Nurse Name Role Phone Jasmin Talbot NP Primary [...] age to complete this topic Care Teams Post Anesthesia Room Nurse Relationship Specialty Start Date End Date Jasmin Talbot NP [address] [place] [address] PCP - General Family Medicine 04/21/22
[2025-09-26 09:21] LABS: MANUAL DIFF FLAG NO
[2025-09-26 09:53] LABS: Hematocrit 42.0 % (37.0-47.0); Hemoglobin 13.5 g/dl (12.0-16.0); Imm Gran Abs Auto 0.02 X10*3/uL (0.00-0.03); Imm Gran Pct Auto 0.2 % (0.0-0.4); Lymphocytes Absolute Auto 3.0 X10*3/uL (1.2-4.9); Mean Corpuscular HGB Conc 32.1 g/dl (31.0-35.0); Mean Corpuscular Hemoglobin 26.2 pg (27.0-33.0); Mean Corpuscular Volume 81.4 fL (80.0-98.0); NRBC Abs Auto 0.000 X10*3/uL (0.0-0.012); NRBC Pct Auto 0.0 /100WBC (0.0-0.2); Platelet Count 368 X10*3/uL (160-400); Red Blood Count 5.16 X10*6/uL (4.20-5.50); White Blood Count 10.3 X10*3/uL (4.8-10.8)
[2025-09-26 09:57] LABS: INTERNATIONAL NORM RATIO 1.0 (0.9-1.1); Prothrombin Time 12.8 SEC (11.2-13.5)
[2025-09-26 09:59] LABS: Partial Thromboplastin Time 28.0 SEC (26.7-34.1)
[2025-09-26 10:27] LABS: Alanine Aminotransferase 22 U/L (0-31); Albumin Level 4.0 g/dL (3.5-5.0); Alkaline Phosphatase 62 U/L (39-117); Anion Gap 15 (12-20); Aspartate Amino Transferase 18 U/L (5-31); Blood Urea Nitrogen 16 mg/dL (9-16); Calcium 9.2 mg/dL (8.4-10.2); Carbon Dioxide 25 mmol/L (22-29); Chloride 107 mmol/L (96-108); Cholesterol 138 mg/dL (<200); Estimated Glomerular Filt Rate > 60; HDL Cholesterol 34 mg/dL (>40); Potassium 4.1 mmol/L (3.3-5.1); Sodium 143 mmol/L (135-145); Total Protein 7.3 g/dL (6.5-8.0); Triglycerides 103 mg/dL (<150)
== END 2025-09-26 08:56 | disposition home or self-care (01) ==
LOC: HO.LAB 08:55
PROVIDERS: Visit Provider Surgery
DX: Z13.1 Encounter for screening for diabetes mellitus (principal); Z13.29 Encounter for screening for other suspected endocrine disorder; Z51.81 Encounter for therapeutic drug level monitoring; E66.01 Morbid (severe) obesity due to excess calories
CPT/HCPCS: 36415; 80053; 80061; 83036; 83525; 84443; 85025; 85610; 85730; 86140

== ENCOUNTER 2025-10-06 08:50 | Day surgery (SDC) | payer OTHER, SELFPAY ==
--- OUTSIDE RECORDS SUMMARY | 2025-09-16 18:19 | XMS_ITS | Clinical Summary ---
Author Organization [facility] Address [address] [place] [address] Care Team Providers Care Monitor Car Operator Name Role Phone Jasmin Talbot APRN Primary [...] [facility] Care Teams Monitor Car Operator Relationship Specialty Start Date End Date Jasmin Talbot APRN [address] [place] [address] PCP - General Internal Medicine 03/16/22
--- OUTSIDE RECORDS SUMMARY | 2025-09-16 18:19 | XMS_ITS | Clinical Summary ---
Author Organization [facility] Address [address] [place] [address] Care Team Providers Care Cloth Stock Sorter Name Role Phone Jasmin Talbot NP Primary [...] age to complete this topic Care Teams Cloth Stock Sorter Relationship Specialty Start Date End Date Jasmin Talbot NP [address] [place] [address] PCP - General Family Medicine 04/21/22
--- OUTSIDE RECORDS SUMMARY | 2025-09-16 18:19 | XMS_ITS | Data Portability ---
Author Organization [place] [facility], [facility] Address [address] [place] [address] Assessment Encounter Date Assessment Date Assessment LastModified by Organization Details LastModified Time 01/07/2025 01/07/2025 29yr F presents for annual exam with complaint of vaginal odor. Vaginitis swab collected - will treat based on results Exercising regularly Calcium and Vit D coming from diet Denies noticing any changes via breast self awareness. Pap smear due 2025 RTO 1 yr for annual exam or sooner as needed [email or web address] Not available 01/08/2025 13:12:01 Plan of Treatment Reminders Order Date Submit Date Provider Last Modified By Organization Details Last Modified Time Details Appointments None recorded. Lab bacterial vaginosis + vaginitis panel, vaginal 2024 025 [facility], [address] [place] [address], [address] 04:59:04 Referral None recorded. Procedures None recorded. Surgeries None recorded. Imaging None recorded. Medication Orders dicloxacill in 500 mg capsule 2023 [facility] #[id number], [address] [place], [address], 12:13:24 amoxicillin 875 mg-potassiu m clavulanate 125 mg tablet 2023 024 [facility] #[id number], [address] [place], [address], 4 12:13:20 EpiPen 2-Zeyad 0.3 mg/0.3 mL injection, auto-inject or 2023 025 [facility] #[id number], [address], [place], [address], 09:10:08 Patient TargetsNo targets recorded. Patient InstructionsNo instructions recorded. Reason for Referral None Reported. Results Created Date Observation Date Name Description Value Unit Range Abnormal Flag Note LastModifiedBy Organization Detail LastModifiedTime 06/20/2006/20/2024 GROUP B STREP DNA PCR group B strep DNA PCR Negati ve negati ve Not Available [facility] [address] [place], [address] 06/23/2024 09:25:20 06/20/2006/20/2024 GROUP B STREP DNA PCR group B strep source Vagina l/Rect al Not Available [facility] [address] [place], [address] 06/23/2024 09:25:20 01/07/2001/07/2025 ADVAN NOE BACTE RIAL VAGIN OSIS (BV), TMA adv bacterial vaginosis (bv), tma Negati ve negati ve Not Available [facility] [address] [place], [address] 01/08/2025 04:59:04 01/07/2001/07/2025 ADVAN NOE SKYE DA VAGIN ITIS (CV)/ TRICH OMONA S VAGIN AYAZ (TV), TMA jay species Negati ve negati ve Not Available [facility] [address] [place], [address] 01/08/2025 04:59:04 01/07/2001/07/2025 ADVAN NOE SKYE DA VAGIN ITIS (CV)/ TRICH OMONA S VAGIN AYAZ (TV), TMA jay glabrata Negati ve negati ve Not Available [facility] [address] [place], [address] 01/08/2025 04:59:04 01/07/20 25 01/07/2025 ADVAN NOE SKYE DA VAGIN ITIS (CV)/ TRICH OMONA S VAGIN AYAZ (TV), TMA trichomonas vaginalis (TV), tma Negati ve negati ve Not Available [facility] [address] [facility], [place], [address] 01/08/2025 04:59:04 07/21/2007/21/2024 ultra sound image s RAD LETICIA [employer] [id number] 07/29/2024 11:12:53 07/24/20 24 07/24/2024 ultra sound image s RAD jovita [employer] [id number] 07/24/2024 19:55:29 Result Notes None recorded. Problems Name Problem SNOMED Code Status Onset Date Resolution Date Notes Provider Name and Address Organization Details Recorded Time Exposure to SARS-CoV -2 Completed 09/2020 Bindu sanchez, [facility] 13:02:06 Genetic disorder carrier [id number] Completed Pt SMA carrier, FOB negative Bindu sanchez, [facility] 4 12:07:09 Rubella non-immu ne 717316755 Completed MMR PP Bindu sanchez, [facility] 4 12:07:09 Placenta previa 99861951 Completed 20wga USN showing posterio r previa-R ESOLVED at 32 week USN Bindu sanchez, [facility] 4 12:07:09 High risk pregnanc y 64516507 Completed Bindu sanchez, [facility] 4 12:07:09 Pregnanc y 25910908 Completed 202009/02/2021 Bindu Goetz null, [facility] 13:02:19 Spinal muscular atrophy 1293137 Completed 202009/15/2021 + carrier status. FOB negative JANNY DE JESUS DO [facility], [address], [place], [address], [place] [facility] 12:53:14 Spinal muscular atrophy 9147866 Completed 2020 + carrier status. FOB negative Bindu Nguyenparish laura, [facility] 1 13:02:06 SARS-CoV -2 Active 2020 ALBERTO Modi MD [address] [facility], [address] [place] [address], [address] [place] [address] 4, [facility] 1 10:50:06 Carrier of spinal muscular atrophy [id number] 2434529 Active 2020 FOB negative JANNY DE JESUS DO [facility], [address] [place] [address], [address] [place] [address] 4, [facility] 1 12:53:10 Mastitis associat ed with lactatio n 261423565 Active 2020 Denise Rousseau DO [address] [facility], [address] [place] [address], [address] [place] [address] 4, [facility] 1 10:58:12 Oligohyd ramnios 18708224 Active 2023 NERISSA FRIAS MD [address] [facility], [address] [place] [address], [address] [place] [address] 4, [facility] 4 12:01:43 Problem Notes None recorded. Procedures Surgical History Date Name Laterality Status Provider Name and Address Organization Details Recorded Time 3 Date of Last Pap Smear completed Nazanin Solares [facility] 11/26/2023 08:32:56 Shoulder joint surgery completed ALBERTO BETANCOURT MD [address] [facility], [address] [place] [address], [address], [facility] 01/18/2021 10:43:35 Imaging Results None recorded. Procedure Notes None recorded. Medical Equipment None Reported. Allergies Allergen ID Allergen Name Allergen Category Reaction Reaction Severity Criticality Documentation Date Start Date Code Code System Note Provider Name and Address Organization Details Recorded Time 8663381 Keflex medicatio n rash Not available Not available 08/07/202400449 7 RxNorm ABDIRAHMAN WISDOM DO [facility], [address] [place] [address], [address] [place] [address] 4, [facility] 4 12:13:39 4780581 clindamyc in Not available rash Not available Not available 08/07/2024 2582 RxNorm ABDIRAHMAN WISDOM DO [address] [facility], [address]rd Floor, [place], [address] , [place] [facility] 4 12:14:18 Medications Name Sig Start Date Stop Date Status Note LastModified by Organization Details LastModified Time dicloxacill in 500 mg capsule TAKE 1 CAPSULE BY MOUTH EVERY 6 HOURS FOR 7 DAYS 08/18 completed Not Available Not Available Not Available valacyclovi r 1 gram tablet TAKE 1 TABLET BY MOUTH THREE TIMES A DAY FOR 7 DAYS 04/18 completed Not Available Not Available Not Available clindamycin HCl 150 mg capsule 09/19 completed Not Available Not Available Not Available cephalexin 500 mg capsule 09/19 completed Not Available Not Available Not Available hydroxyzine HCl 25 mg tablet take one tab orally at bedtime as needed for itching 10/13 completed Not Available Not Available Not Available epinephrine 0.3 mg/0.3 mL injection, auto-inject or Take 1 auto as needed by injection route as needed for 1 day. 01/07 completed Not Available Not Available Not Available ibuprofen 600 mg tablet 09/19 completed Not Available Not Available Not Available ondansetron 4 mg disintegrat ing tablet TAKE 1 TABLET (4 MG TOTAL) BY MOUTH 3 (THREE) TIMES A DAY NEEDED FOR NAUSEA FOR UP TO 7 DAYS. 04/18 completed Not Available Not Available Not Available amoxicillin 875 mg-potassiu m clavulanate 125 mg tablet Take 1 tablet every 12 hours by oral route for 7 days. 08/18 completed Not Available Not Available Not Available erythromyci n-benzoyl peroxide 3 %-5 % topical gel APPLY ONCE TO TWICE DAILY TO FACE NEEDED 09/19 completed Not Available Not Available Not Available June12/01 (21) 1 mg-20 mcg tablet 01/30 completed Not Available Not Available Not Available Keflex 09/19 completed Not Available Not Available Not Available 01/07 completed Not Available Not Available Not Available linoleic acid-sunflo wer oil 10/13 completed Not Available Not Available Not Available Mibelas 24 Fe 1 mg-20 mcg (24)/75 mg (4) chewable tablet CHEW 1 TABLET BY MOUTH EVERY DAY 04/18 completed Not Available Not Available Not Available Vitals Date Recorded Body height Body mass index (BMI) Body weight Systolic And Diastolic Provider Name and Address Organization Details Last Updated DateTime 01/07/2025 170.18 cm 26.3 kg/m2 78202.52 g 120/78 mm[Hg] Anette Bush [facility] 01/07/2025 09:12:59 Date Recorded Body weight Systolic And Diastolic Provider Name and Address Organization Details Last Updated DateTime 07/21/2024 49796.85797 g 128/70 mm[Hg] Not Available [facility] Record 07/21/2024 13:22:44 Date Recorded Body weight Systolic And Diastolic Provider Name and Address Organization Details Last Updated DateTime 07/24/2024 92820.87720 g 100/68 mm[Hg] Not Available [facility] Record 07/24/2024 13:08:51 Date Recorded Body height Body mass index (BMI) Body weight Systolic And Diastolic Provider Name and Address Organization Details Last Updated DateTime 08/07/2024 170.18 cm 29.1 kg/m2 86539.18 g 112/64 mm[Hg] Joaquinachantale Velásquez [facility] 08/07/2024 11:59:09 Date Recorded Body height Body mass index (BMI) Body weight Systolic And Diastolic Provider Name and Address Organization Details Last Updated DateTime 09/01/2024 170.18 cm 27.7 kg/m2 13408.85 g 128/79 mm[Hg] Nazanin Wells Chito [facility] 09/01/2024 13:57:30 Social History Question Answer Notes LastModified by Organizat ion Details LastModified Time Tobacco Smoking Status Never Smoker Neva sanchez [facility] 01/18/2021 08:39:59 Do You Have Any Children? Yes Information not available 01/07/2025 Does Your Partner Physically Hurt You Or Threaten To Hurt You? No Information not available 01/18/2021 Has Your Partner Forced You To Have Sex Or Perform Sex Acts When You Did Not Want To? No Information not available 01/18/2021 Does Your Partner Insult, Scream At Or Talk Down To You? No Information not available 01/18/2021 Does Your Partner Control You Or Any Part Of Your Life? No Information not available 01/18/2021 Are You Afraid Of Your Partner? No Information not available 01/18/2021 Drug Use? No Information no t available 01/18/2021 Do You Feel Safe At Home? Yes Information not available 01/18/2021 What Was The Date Of Your Most Recent Tobacco Screening? 01/07/2025 Information not available 01/07/2025 How Much Tobacco Do You Smoke? No Information not available 01/18/2021 Have You Recently Traveled Abroad? No Information not available 01/18/2021 Have You Recently (within The Last 12 Weeks, Or During A Current ) Traveled To Or Lived In A Zika-affected Area? No Information not available 01/18/2021 Sex: Female Functional Status Question Answer Note LastModified by Organizat ion Details LastModified Time What is your level of alcohol consumption? Occasional Information not available 01/07/2025 Mental Status None recorded. Family History Relationship Description Onset Age of this Age Resolved Age Notes LastModified by Organization Details LastModified Time Mother Malignant neoplasm of breast Not available 2020 08:39:13 Mother Myocardial infarction 61 Not available 01/18 08:39:30 Maternal Aunt Malignant neoplasm of breast Not available 2020 08:39:55 Notes:No family hx of ovaria n or colon cancer Medical History No medical history recorded. Gynecological History Statement/Question Response Current Control Method Condoms Date of Last Colonoscopy Date of Last Mammogram Date of LMP 12/10/2024 Date of last DEXA IPV Screen Done 01/07/2025 Date of Last Pap Smear 04/18/2023 Obstetrics History GPAL:G 2 P 2 0 0 2 Type Value Full Term 2 Living 2 Total 2 Immunizations Vaccine Type Date Status Note Provider Darrick e and Address Organization Details Recorded Time Tdap 06/06/2021 completed Nas Menezes null, [facility] 06/06/2021 09:12:26 Influenza, MDCK, quadrivalent, PF 08/25/2021 completed Latonya Smyth null, [place] [facility] 08/25/2021 10:54:44 Tdap 04/30/2024 completed Not Available [facility] Record 04/30/2024 10:11:51 Tdap 04/30/2024 completed Nara Tellez null, [facility] 04/30/2024 09:56:49 RSV, bivalent, protein subunit RSVpreF, diluent reconstituted , 0.5 mL, PF 07/21/2024 completed Anabela Hood null, [facility] 07/21/2024 14:13:41 Influenza, MDCK, quadrivalent, PF 08/21/2023 completed Nazanin Solares null, [facility] 08/18/2024 12:06:55 COVID-19, subunit, rS-nanopartic le+Matrix-M1 Adjuvant, PF, 0.5 mL 09/04/2023 completed Nazanin Solares null, [facility] 08/18/2024 12:06:55 COVID-19, mRNA, LNP-S, PF, 30 mcg/0.3 mL dose 11/10/2021 completed Nazanin Solares [facility], [facility] 04/18/2023 08:46:35 Past Encounters Encounter ID Performer Location Encounter Start Date Encounter Closed Date Diagnosis/Indication Diagnosis SNOMED-CT Code Diagnosis ICD10 Code Diagnosis IMO Codes Diagnosis Note [id number] ALBERTO BETANCOURT MD [facility] [address] [facility] [place] [place] [address] 01/18/2021 08:27:38 01/18/2021 10:57:50 Routine care 307364322 Z34.90 Z34.91 Z34.92 Z34.93 Z34.00 Z34.80 Z34.01 Z34.02 Z34.03 Z34.81 Z34.82 Z34.83 [id number] ALBERTO BETANCOURT MD [facility] [address] [facility] [facility] [place] [address] 02/01/2021 10:43:51 02/01/2021 11:42:41 [id number] Z33.1 [id number] ALBERTO BETANCOURT MD [facility] [address] [place] [facility] [place] [address] 02/28/2021 10:44:27 02/28/2021 11:28:23 [id number] ALBERTO BETANCOURT MD [facility] [address] [place] [facility] [place] [address] 03/28/2021 10:15:46 03/28/2021 10:37:26 [id number] Denise Rousseau DO [facility] [address] [place] [facility] [place] [address] 04/26/2021 08:48:02 04/26/2021 14:50:09 Routine care 300793732 Z34.02 Gestation period, 22 weeks 45224005 Z3A.22 54776023 Z34.0 3 Z34.83 [id number] BARRERA VANESSA MD [facility] [address] [place] [facility] [place] [address] 05/24/2021 10:48:23 05/25/2021 08:01:56 Routine care 545482271 Z34.02 Gestation period, 26 weeks 30633458 Z3A.26 [id number] BRIAN LUONG MD [facility] [address] [place] [facility] [place] [address] 06/06/2021 08:46:07 06/06/2021 10:00:18 [id number] SHAVON LAY MD [facility] [address] [facility] [place] [address] 06/20/2021 14:02:25 06/20/2021 15:28:14 Routine care 651790591 Z34.03 Gestation period, 29 weeks 73069197 Z3A.29 [id number] BRIAN LUONG MD [facility] [address] [place] [facility] [place] [address] 07/07/2021 10:35:11 07/07/2021 10:50:42 [id number] DEAN WELCH MD [facility] [address] [place] [address] 07/22/2021 15:57:45 07/25/2021 08:52:43 [id number] ALBERTO BETANCOURT MD [facility] [address] [place] [facility] [place] [address] 08/01/2021 09:11:06 08/01/2021 14:16:19 screening 322558354 Z36.9 [id number] ALBERTO BETANCOURT MD [facility] [address] [place] [facility] [place] [address] 08/10/2021 09:18:18 08/10/2021 09:34:59 [id number] ABDIRAHMAN WISDOM DO [facility] [address] [place] [facility] [place] [address] 08/15/2021 08:51:28 08/15/2021 10:14:40 [id number] NERISSA Haque MD WW [address] [place] [address] 08/22/2021 09:45:14 08/22/2021 12:00:45 Routine care 066100888 Z34.03 Gestation period, 38 weeks 95980940 Z3A.38 [id number] NERISSA Haque MD [address] [address] 08/25/2021 10:23:01 08/25/2021 12:34:07 Routine care 247935240 Z34.03 Gestation period, 39 weeks 56584947 Z3A.39 [id number] NERISSA Haque MD [facility] [address] [place] [facility] [place] [address] 08/29/2021 11:36:21 08/29/2021 12:27:39 Gestation period, 39 weeks 96913256 Z3A.39 Routine an tenatal care 135516514 Z34.03 [id number] JANNY DE JESUS DO [address] [address] 08/30/2021 09:35:21 08/30/2021 10:52:18 Gestation period, 40 weeks 38474688 Z3A.40 [id number] ALBERTO BETANCOURT MD [address] [address] 09/07/2021 10:46:27 09/07/2021 11:07:30 Acute mastitis 23946411 N61.0 possible abscess right breast. will check usn now.Switch antibiotic s to augmentin [id number] JANNY DE JESUS DO [address] [address] 09/15/2021 12:20:07 09/15/2021 13:32:20 Mastitis associated with 435574286 O91.23 Generalized rash 5081170 06 R21 [id number] JANNY DE JESUS DO [address] [address] 09/19/2021 12:16:21 09/19/2021 13:33:45 Pruritic rash 76799380 L28.2 Mastitis a ssociated with 008445003 O91.23 [id number] ABDIRAHMAN WISDOM DO [address] [place] [address] 10/13/2021 11:43:35 10/14/2021 10:33:41 care 596642885 Z39.2 Normal examRx OCPRTO January. 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 discussed timed intercours ewill f/u with PCP regarding recent hx of shingles [id number] NERISSA Haque MD [facility] [address], [address] [place] [address] 12/03/2023 11:00:27 12/03/2023 14:06:14 Missed period 80162868 N92.5 -28yo now here w/ missed menses due to , confirmed today - Pt s/p viability US today confirmed SVIUP w/ final EDC 07/19/24 by LMP 10/13/23 and c/w USN. 7+2wga today - Pap UTD, gc/chlam obtained today - D/w aneuploidy screening and pt would like NIPT. Horizon 14 w/ +SMA (fob negative) - PMFHSHx and OBGHx updated. - RTO @ approx 10wga for IOB visit, PNLS, nIPT Carrier of spinal muscular atrophy 2604745114 46319906 Z14.8 [id number] NERISSA Haque MD [facility] [address], [address] [place] [address] 12/26/2023 09:46:42 12/26/2023 10:51:28 screening 043428982 Z36.0 Routine an tenatal care 357317600 Z34.90 [id number] JANNY DE JESUS DO [facility] [address], [address] [place] [address] 01/23/2024 15:14:17 01/24/2024 08:05:44 Routine care 440187323 Z34.82 Rubella non-immune 34425 4009 Z78.9 Gestation period, 14 weeks 65228069 Z3A.14 [id number] NERISSA Haque MD [facility] [address], [address] [place] [address] 02/20/2024 15:31:37 02/20/2024 16:12:10 Routine care 254473906 Z34.82 Gestation period, 18 weeks 82638471 Z3A.18 [id number] ABDIRAHMAN WISDOM, DO [facility] [facility], [address] [place] [address] 03/19/2024 09:38:05 03/19/2024 10:08:46 [id number] JANNY LIZA, DO [facility] [address] [facility], [address] [place] [address] 04/16/2024 09:41:35 04/16/2024 10:33:44 High risk 85630433 O09.92 Genetic di sorder carrier 61936959 Z14.8 Rubella non-immune 35909 4009 Z78.9 Gestation period, 26 weeks 70186334 Z3A.26 52553190 Z34.0 3 Z34.83 [id number] ALBERTO BETANCOURT MD [facility] [place], [address] [place] [address] 04/30/2024 09:47:46 04/30/2024 10:15:08 [id number] VALERIO GORMAN , SUJATA WW[address] [facility], [address] [place] [address] 05/16/2024 11:41:41 05/16/2024 12:24:52 support 349507028 Z39.1 Gestation period, 30 weeks 14412744 Z3A.30 Placenta previa 66473367 O44.03 Rubella non-immune 55399 4009 Z01.84 [id number] VALERIO GORMAN , SUJATA [facility] [place] [address] 05/30/2024 16:02:18 06/02/2024 12:18:06 Gestation period, 32 weeks 5646637 Z3A.32 Breech presentation 6096 002 O32.1XX9 Rubella non-immune 98999 4009 Z01.84 Genetic di sorder carrier 53951985 Z14.8 [id number] JANNY DE JESUS, DO [facility] [address] [place] [address] 06/12/2024 14:22:18 06/13/2024 11:13:07 Genetic disorder carrier 31986855 Z14.8 Pt SMA carrier, FOB negative High risk 4720 0007 O09.93 Rubella non-immune 20583 4009 Z78.9 MMR PP Gestation period, 34 weeks 63801187 Z3A.34 [id number] VALERIO GORMAN APRN [facility] [address] [address] 06/20/2024 15:45:32 06/20/2024 16:13:02 Gestation period, 35 weeks 74203794 Z3A.35 Rubella non-immune 95537 4009 Z01.84 Genetic di sorder carrier 57981909 Z14.8 High risk 4720 0007 O09.93 [id number] NERISSA Haque MD [address] [address] 06/27/2024 14:53:34 06/27/2024 15:08:57 Rubella non-immune 827629090 Z78.9 MMR PP Genetic di sorder carrier 27832237 Z14.8 Pt SMA carrier, FOB negative High risk 4720 0007 O09.93 Gestation period, 36 weeks 83751785 Z3A.36 [id number] VALERIO GORMAN APRN [facility] [address], [facility] [address] [place] [address] 07/03/2024 07:50:07 07/03/2024 10:26:40 Gestation period, 37 weeks 28616947 Z3A.37 Rubella non-immune 59638 4009 Z01.84 High risk 4720 0007 O09.93 [id number] JANNY DE JESUS DO [facility] [address] [place], [facility] [address] [place] [address] 07/10/2024 08:41:53 07/10/2024 13:46:00 Rubella non-immune 525036387 Z78.9 MMR PP Genetic di sorder carrier 88838775 Z14.8 Pt SMA carrier, FOB negative High risk 4720 0007 O09.93 Gestation period, 38 weeks 56705602 Z3A.38 [id number] VALERIO GORMAN APRN [address] [place] [address] 07/16/2024 14:03:48 07/18/2024 12:05:46 Gestation period, 39 weeks 78185746 Z3A.39 Rubella non-immune 31135 4009 Z01.84 [id number] Denise Rousseau, DO [facility]1 [address] [address] 07/21/2024 13:05:50 07/24/2024 07:11:16 High risk 59718138 O09.93 Gestation period, 40 weeks 78383181 Z3A.40 [id number] ABDIRAHMAN WISDOM, DO [address] [address] 07/24/2024 12:53:10 07/28/2024 07:59:19 [id number] ABDIRAHMAN WISDOM, DO [facility]2 [address] [place] [address] 08/07/2024 11:51:45 08/08/2024 11:28:58 Mastitis associated with 392111855 O91.22 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 with stencil printer ~ 5 hours after visitPt has labs that were negative for amoxicilli n, Pen VPt aware to take augmentin instead of keflexWill call if no improvemen t [id number] NERISSA Haque MD WW[address] [facility], [facility] 3 [place] [address] 09/01/2024 13:45:40 09/01/2024 14:21:12 care 415842361 Z39.2 - doing well 6wk PP, had no laceration s- no e/o PPD, EPDS 0/30- vaginal area normal- bottle feeding well- plans condoms for contracept ion, will call if she wants any other contracept ion, planning one more baby [id number] JANNY DE JESUS, DO [address] [address] 01/07/2025 09:05:04 01/09/2025 09:14:14 Gynecologic examination 91266231 Z01.419 Vaginal odor 190219010 N 89.8 Health Concerns Section Related Observation LastModified by Organization Detai ls LastModified Time None Recorded Concern Status LastModified by Organization Details LastModified Time None Recorded Advance Directives Directive None Recorded Payers Insurance Date Sequence Insurance Name Policy Number Policy Juarez Covered Member ID Juarez Member ID Guarantor Name 01/12/2025 1 [facility] [id number] Eduardo Fishman Parent [id number] Zari Parent Notes Date Note Type Note Provider Name and Address Organization Details Recorded Time 08/07/2024 text/html ROS as noted in the HPI Pt s/p 07/25/24. Pumping and feeling with bottle. Had fever last night with tenderness and ? redness on right breast.Has mastitis PP with her first child. She took dicloxacillin and augmentin outpatient and was ultimately admitted to the hospital for IV antibiotics. She received Vancomycin and ceftriaxone (one dose) that was later changed to Ancef after ID consult. She spent 4 days in the hospital and was discharged home on keflex and clindamycin. She developed a diffuse body rash on these antibiotics so she d/c and stopped breast feeding.Overproduces milk - happened with her first also.Had allergy testing but is unsure of the results ABDIRAHMAN WISDOM DO [address] [facility], [address] [place], [address], [facility] 08/07/2024 20:29:34 09/01/2024 text/html [facility] VisitReported by PatientHPIFor associated symptoms, patient reportsmastitisbut reportsno abnormal bleeding,no pelvic pain,no constipation,no fecal incontinence,no dysuria,no urinary incontinence, andno fever(per pt had mastitis, took antibiotics and feeling better now). For delivery type, patient reportsnsvd(dr. kulkarni). For onset/timing, (07/25/24).Boy Farshad 7 lbs [address] Blackmon - 6wk PPV s/p uncomplicated - doing well w/ no c/o- weaned from due to mastitis and doing well NERISSA KULKARNI MD [address] [facility], [address] [place], [address], [facility] 09/01/2024 14:19:13 01/07/2025 text/html ROS as noted in the HPI 29yr F presents for annual exam with complaint of vaginal odor. Exercising regularly Calcium and Vit D coming from diet Denies noticing any changes via breast self awareness. JANNY DE JESUS, DO [address] [facility], [address], [place], [address], [place] [facility] 01/08/2025 13:13:22 OBGyn Episode Ob Episode Information Episode Created Date Number of Fetuses Patient Bloodtype Patient rh Status Prepregnancy Weight lbs Domestic Partner Domestic Partner Phone Father Name Supervisor Ride Assembly Status 12/26/19 24 1 O Positive CLOSED Fetus Data First Name Last Name Admitted to NICU Weight (g) Sex Living Outcome Pediatric Complications Fetus ID Race Codes Race Delivery Type false [phone] M true Full Term [id number] Vaginal Delivery Problems Problem Notes Problem Name Start Date End Date Resolution Snomed Code Not e Genetic disorder carrier 62994300 Pt SMA carrier, FOB negative Placenta previa [id number] 20wg a USN showing posterior previa-RESOLVED at 32 week USN High risk [id number] Rubella non-immune [id number] M MR PP Peter Calculation Initial Peter Date Initial Exam Date Initial Exam Provider Initial Ultrasound Date Last Menstrual Period Date Ultra Sound Weeks Gestation 12/26/2023 12/03/2023 10/13/2023 6 Eighteen To Twenty Week Peter Update Ultra Sound Date Fundal Height At Umbil Quickening Date Ultra Sound Latest Weeks Gestation Final Peter Confirmed By Final Peter Confirmed Date Final Peter Date Ultra Sound Latest Days Gestation 0 07/19/20 24 0 Pre-randy Flowsheet Flowsheet Date 12/26/2023 Fisher Score Blood Edema Fundus Height Fundus Units Glucose Ketones Leukocytes Nitrite Labor Signs Protein Cervic Dilation Cervic Effacement Cervic Station Type Weight in lbs Pre/Post Dialysis Refused Weight 158.190058408008 BP Diastolic BP Location Tested BP Systolic BP Type 60 119 Fetus Heart Rate Present A Present Fetus Movement A Yes Comments 28yo @ 10+4wga here for IOB (Final EDC 07/19/24 by LMp c/w 1st tri USN). Pt reports a few episodes of virtigo w/ room spinning around her when moving her head. None in the last week. If recurrent will have pt seen by ENT. 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 , G1 c/b PP readmission for mastitis / breast abscess otherwise uncomplicated. After counseling pt desires NIPT which was ordered along w/ her PNLs. She already has completed horizon 14 testing. Early anatomy US and anatomy US in process of being scheduled, f/u for OBV in 4wks. Flowsheet Date 01/23/2024 Fisher Score Blood Edema Fundus Height Fundus Units Glucose Ketones Leukocytes Nitrite Labor Signs Protein Cervic Dilation Cervic Effacement Cervic Station neg none none neg Type Weight in lbs Pre/Post Dialysis Refused Weight 164.70807386096 BP Diastolic BP Location Tested BP Systolic BP Type 64 111 Fetus Heart Rate Present A 140 Fetus Movement A Yes Comments Doing well. Thinks she is st arting to feel flutters. Boy this time. No further dizziness spells. Discussed rubella NI. Had normal NT scan. Has anatomy scan scheduled. MSAFP form given. RTO 4 weeks Flowsheet Date 02/20/2024 Fisher Score Blood Edema Fundus Height Fundus Units Glucose Ketones Leukocytes Nitrite Labor Signs Protein Cervic Dilation Cervic Effacement Cervic Station neg none none neg Type Weight in lbs Pre/Post Dialysis Refused Weight 167.277775230931 BP Diastolic BP Location Tested BP Systolic BP Type 68 114 Fetus Heart Rate Present A 150 Fetus Movement Comments last time thought she was fe eling FM but realizes it was not and hasn't really started to feel it yet. Pt reassured. completed msafp today. has anatomy us upcoming. F/u 4wks. Flowsheet Date 03/19/2024 Fisher Score Blood Edema Fundus Height Fundus Units Glucose Ketones Leukocytes Nitrite Labor Signs Protein Cervic Dilation Cervic Effacement Cervic Station neg none 22 cm none trace trace Type Weight in lbs Pre/Post Dialysis Refused Weight 177.399873404630 BP Diastolic BP Location Tested BP Systolic BP Type 72 118 Fetus Heart Rate Present A 140 Present Fetus Movement A Yes Comments Doing well. +FM. Reviewed US N at 32 weeks. Flowsheet Date 04/16/2024 Fisher Score Blood Edema Fundus Height Fundus Units Glucose Ketones Leukocytes Nitrite Labor Signs Protein Cervic Dilation Cervic Effacement Cervic Station neg 27 cm none trace trace Type Weight in lbs Pre/Post Dialysis Refused Weight 185.930640382969 BP Diastolic BP Location Tested BP Systolic BP Type 62 106 Fetus Heart Rate Present A 135 Fetus Movement A Yes Comments Doing well but having some l ow back pain particularly after standing up after long periods of sitting. SI joint dysfunction discussed. Recommended band for support of pelvic girdle and support under ischial tuberosities while sitting to try and help. Good FM. CBB and Tdap info given. Has follow-up USN for previa scheduled. Labs ordered. RTO 2 weeks Flowsheet Date 04/30/2024 Fisher Score Blood Edema Fundus Height Fundus Units Glucose Ketones Leukocytes Nitrite Labor Signs Protein Cervic Dilation Cervic Effacement Cervic Station neg 29 cm none none neg Type Weight in lbs Pre/Post Dialysis Refused Weight 187.488739686147 BP Diastolic BP Location Tested BP Systolic BP Type 78 112 Fetus Heart Rate Present A 135 Fetus Movement A Yes Comments Doing well. Good FM. TDap gi marvin today. RTO 2 wks Flowsheet Date 05/16/2024 Fisher Score Blood Edema Fundus Height Fundus Units Glucose Ketones Leukocytes Nitrite Labor Signs Protein Cervic Dilation Cervic Effacement Cervic Station neg 31 cm none trace trace Type Weight in lbs Pre/Post Dialysis Refused Weight 187.581978849814 BP Diastolic BP Location Tested BP Systolic BP Type 82 130 Fetus Heart Rate Present A 140 Fetus Movement A Yes Comments Doing well, good FM. Has 32 week follow-up USN for partial placenta previa scheduled at [facility]. Still on pelvic rest. pt was hospitalized for severe mastitis on triple ABX 5 days PP thought to be d/t over-supply? Will have her meet with [facility] prior to delivery in hopes of preventing this again. Encouraged hydration. DFM, LOF, VB and PTL precautions given. RTO 2 weeks, Flowsheet Date 05/30/2024 Fisher Score Blood Edema Fundus Height Fundus Units Glucose Ketones Leukocytes Nitrite Labor Signs Protein Cervic Dilation Cervic Effacement Cervic Station neg 33 cm none none trace Type Weight in lbs Pre/Post Dialysis Refused Weight 191.988874445190 BP Diastolic BP Location Tested BP Systolic BP Type 68 106 Fetus Heart Rate Present A 145 Fetus Movement A Yes Comments Doing well, good FM. Had ult rasound at [facility] today which showed posterior placenta previa has RESOLVED. Breech on USN at hospital and today in office. Reviewed will screen next visit and discussed options if baby remains breech. Has appt with architectural sales consultant. Encouraged hydration. DFM, LOF, VB and PTL precautions given. RTO 2 weeks. Flowsheet Date 06/12/2024 Fisher Score Blood Edema Fundus Height Fundus Units Glucose Ketones Leukocytes Nitrite Labor Signs Protein Cervic Dilation Cervic Effacement Cervic Station neg 35 cm none none neg Type Weight in lbs Pre/Post Dialysis Refused Weight 194.512584409437 BP Diastolic BP Location Tested BP Systolic BP Type 70 118 Fetus Heart Rate Present A 145 Fetus Movement A Yes Comments Doing okay, had a scare yest erday where she was carrying her toddler and then heavy groceries to and from the grocery store she then felt a sharp pain over her pubic symphysis which is still there today but not as severe. Discussed it could be related to position (breech/transverse) or pubic symphsysis separation. Pelvic bone support band discussed. position discussed. If still transverse or breech at next visit she would be interested in ECV. Discussed GBS next visit. RTO 1 week Flowsheet Date 06/20/2024 Fisher Score Blood Edema Fundus Height Fundus Units Glucose Ketones Leukocytes Nitrite Labor Signs Protein Cervic Dilation Cervic Effacement Cervic Station neg 36 cm none none neg 0cm 30% -4 Type Weight in lbs Pre/Post Dialysis Refused Weight 197.282629202632 BP Diastolic BP Location Tested BP Systolic BP Type 70 118 Fetus Heart Rate Present A 145 Fetus Movement A Yes Comments Doing well, good FM. VTX on handheld USN today in the office. GBS collected, no allergies. Reviewed DFM, LOF, VB and labor precautions. RTO 1 week. Flowsheet Date 06/27/2024 Fisher Score Blood Edema Fundus Height Fundus Units Glucose Ketones Leukocytes Nitrite Labor Signs Protein Cervic Dilation Cervic Effacement Cervic Station neg 36 cm none none trace 1cm 50% -3 Type Weight in lbs Pre/Post Dialysis Refused Weight 198.795764162408 BP Diastolic BP Location Tested BP Systolic BP Type 68 110 Fetus Heart Rate Present A 140 Fetus Movement Comments GBS neg. F/u 1wk. Flowsheet Date 07/03/2024 Fisher Score Blood Edema Fundus Height Fundus Units Glucose Ketones Leukocytes Nitrite Labor Signs Protein Cervic Dilation Cervic Effacement Cervic Station neg 37 cm none neg 1cm 50% -3 Type Weight in lbs Pre/Post Dialysis Refused Weight 200.941172596207 BP Diastolic BP Location Tested BP Systolic BP Type 70 120 Fetus Heart Rate Present A 145 Fetus Movement A Yes Comments Doing well, good FM. No regu lar contractions. DFM, LOF, VB and labor precautions given. RTO 1 week. Flowsheet Date 07/10/2024 Fisher Score Blood Edema Fundus Height Fundus Units Glucose Ketones Leukocytes Nitrite Labor Signs Protein Cervic Dilation Cervic Effacement Cervic Station neg 38 cm none none neg 1cm 50% -3 Type Weight in lbs Pre/Post Dialysis Refused Weight 200.263432837204 BP Diastolic BP Location Tested BP Systolic BP Type 74 122 Fetus Heart Rate Present A 135 Fetus Movement A Yes Comments Doing well but stressed constance use her car just yesterday. Needs to find a new car quickly. Had contractions at work a week ago but none since. Good FM. RTO 1 week Flowsheet Date 07/16/2024 Fisher Score Blood Edema Fundus Height Fundus Units Glucose Ketones Leukocytes Nitrite Labor Signs Protein Cervic Dilation Cervic Effacement Cervic Station neg 39 cm none none neg 1cm 60% -3 Type Weight in lbs Pre/Post Dialysis Refused Weight 200.721855439694 BP Diastolic BP Location Tested BP Systolic BP Type 70 110 Fetus Heart Rate Present A 140 Fetus Movement A Yes Comments Doing well, good FM. Got a n ew car and feeling less stressed. Hoping to go into labor this weekend. SVE 1-2cm/50%. GBS negative. Will need NST and JEOVANNY on Sunday if undelivered. DFM, LOF, VB and labor precautions given. RTO Sunday. Flowsheet Date 07/21/2024 Fisher Score Blood Edema Fundus Height Fundus Units Glucose Ketones Leukocytes Nitrite Labor Signs Protein Cervic Dilation Cervic Effacement Cervic Station neg none 40 cm none 1+ trace 1cm 60% -3 Type Weight in lbs Pre/Post Dialysis Refused Weight 202.810255191848 BP Diastolic BP Location Tested BP Systolic BP Type 70 128 Fetus Heart Rate Present A 140 Fetus Movement A Yes Comments Doing well. Baby is active. Prefers spontaneous labor, but would like induction if undelivered in the next few days. Had URI last at term and was induced for tachycardia/decelerations and oligohydramnios. She is hopeful that this delivery can be less medically complicated. Contractions noted on monitor. Reactive testing. Cervix is 1-2 cm. Normal JEOVANNY. Follow up in next couple days for NST/JEOVANNY or sooner, prn. Flowsheet Date 07/24/2024 Fisher Score Blood Edema Fundus Height Fundus Units Glucose Ketones Leukocytes Nitrite Labor Signs Protein Cervic Dilation Cervic Effacement Cervic Station neg none 40 cm none none trace 2cm 60% -3 Type Weight in lbs Pre/Post Dialysis Refused Weight 203.38424749029 BP Diastolic BP Location Tested BP Systolic BP Type 68 100 Fetus Heart Rate Present A 120 Present Fetus Movement A Decreased Comments Doing OK. NST reactive. JEOVANNY normal. Pt reporting decreased FM this afternoon. Usually baby is very active and she is now barely feeling movement. Pt sent to L+D for IOL Menstrual History Last Menstrual Date Menses Monthly On Bcp Conception Prior Menses Frequency Hcg Plus Date Menarche Onset Age 1210/13/2023 Delivery Information Delivery Date Delivery Type Labor Anesthesia Weeks Gestation Incision Type Labor Labor Length Hrs Delivered By Post Complications Tubal Sterilization Discharge Date Comments 4 Induce d Regional-Ep idural 40.6 false Malentacch Nerissa haque MD 07/26/2024 IOl for decreased movement. IOL w/ pit and arom and uncomplic ated w/ no laceratio ns. EBl 410. Discharge Information Feeding Method Contraceptive Method Maternal HG B and HCT Levels Ob Episode Information Episode Created Date Number of Fetuses Patient Bloodtype Patient rh Status Prepregnancy Weight lbs Domestic Partner Domestic Partner Phone Father Name Supervisor Ride Assembly Status 01/19/20 21 1 O Positive CLOSED Fetus Data First Name Last Name Admitted to NICU Weight (g) Sex Living Outcome Pediatric Complications Fetus ID Race Codes Race Delivery Type false F true Full Term [id number] Vaginal Delivery Problems Problem Notes Problem Name Start Date End Date Resolution Snomed Code Not e Exposure to SARS-CoV-2 821815380 09/2020 Spinal muscular atrophy 02/15/2021 [id number] + carrier statu s. FOB negative Peter Calculation Initial Peter Date Initial Exam Date Initial Exam Provider Initial Ultrasound Date Last Menstrual Period Date Ultra Sound Weeks Gestation 08/30/2021 01/18/2021 11/23/2020 0 Eighteen To Twenty Week Peter Update Ultra Sound Date Fundal Height At Umbil Quickening Date Ultra Sound Latest Weeks Gestation Final Peter Confirmed By Final Peter Confirmed Date Final Peter Date Ultra Sound Latest Days Gestation 0 08/30/20 21 0 Pre-randy Flowsheet Flowsheet Date 01/18/2021 Fisher Score Blood Edema Fundus Height Fundus Units Glucose Ketones Leukocytes Nitrite Labor Signs Protein Cervic Dilation Cervic Effacement Cervic Station 8 cm Type Weight in lbs Pre/Post Dialysis Refused Weight 149.579800520908 BP Diastolic BP Location Tested BP Systolic BP Type 72 112 Fetus Heart Rate Present Fetus Movement Comments temp:97.1. 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 Had spotting at 6 wks and usn done, usn EDC consistent with LMP. Feeling well otherwise and no bleeding since. Taking PNVs. Had covid in September and vaccine in Nov. works at [employer]. No medical concerns. Paps always WNL. Feeling some increase in anxiety but thinks related to hormonal changes, work life and missing her mother ( 3 years ago). Name of therapist given. Discussed all testing. RTO 2 wks for blood work if she wants to do it. blood work today. Flowsheet Date 02/01/2021 Fisher Score Blood Edema Fundus Height Fundus Units Glucose Ketones Leukocytes Nitrite Labor Signs Protein Cervic Dilation Cervic Effacement Cervic Station 10 cm none negative neg Type Weight in lbs Pre/Post Dialysis Refused Weight 149.270083562605 BP Diastolic BP Location Tested BP Systolic BP Type 64 118 Fetus Heart Rate Present Fetus Movement Comments Doing well. no n/v. Would li ke to do cell free and horizon. Discussed starting baby ASA at 12 wks. movement noted on hand held usn, could not hear FHR on doptone. Will schedule 12 and 20 wk usn. RTO 4 wks Flowsheet Date 02/28/2021 Fisher Score Blood Edema Fundus Height Fundus Units Glucose Ketones Leukocytes Nitrite Labor Signs Protein Cervic Dilation Cervic Effacement Cervic Station 14 cm none negative neg Type Weight in lbs Pre/Post Dialysis Refused Weight 149.657070947342 BP Diastolic BP Location Tested BP Systolic BP Type 60 114 Fetus Heart Rate Present A 160 Fetus Movement Comments Doing well. no n/v. Still christian s episodes of not being able to get a complete breath in since having covid in September. Symptoms have not worsen but has persisted. Able to work 12 hour shifts at work without increase in SOB. Denies CP or dizziness. On exam LSCB and cardiac RRR, no murmurs. Discussed most likely residual effect from covid, but recommend seeing PCP. RTO 4 wks Flowsheet Date 03/28/2021 Fisher Score Blood Edema Fundus Height Fundus Units Glucose Ketones Leukocytes Nitrite Labor Signs Protein Cervic Dilation Cervic Effacement Cervic Station 18 cm none negative neg Type Weight in lbs Pre/Post Dialysis Refused Weight 155.66572530957 BP Diastolic BP Location Tested BP Systolic BP Type 62 110 Fetus Heart Rate Present A 155 Fetus Movement A No Comments Doing well. SOB much improve d. Discussed and declined AFP. RTO 4 wks Flowsheet Date 04/26/2021 Fisher Score Blood Edema Fundus Height Fundus Units Glucose Ketones Leukocytes Nitrite Labor Signs Protein Cervic Dilation Cervic Effacement Cervic Station neg none 22 cm none none Negative neg Type Weight in lbs Pre/Post Dialysis Refused Weight 162.936417117061 BP Diastolic BP Location Tested BP Systolic BP Type 64 118 Fetus Heart Rate Present A 155 Present Fetus Movement A Yes Comments Doing well. Not feeling much movement yet, anterior placenta. Active fetus noted on exam, FH 155. Has girls' getaway to [place] this weekend. Reviewed safe travel precautions. Follow up 4 weeks. Then at 28 weeks for 3rd tri labs. Flowsheet Date 05/24/2021 Fisher Score Blood Edema Fundus Height Fundus Units Glucose Ketones Leukocytes Nitrite Labor Signs Protein Cervic Dilation Cervic Effacement Cervic Station neg 26 cm none none Negative neg Type Weight in lbs Pre/Post Dialysis Refused Weight 164.13863194606 BP Diastolic BP Location Tested BP Systolic BP Type 68 116 Fetus Heart Rate Present A 136 Fetus Movement A Yes Comments Patient is doing well. Alona alcantar is here for OB visit. HH US shows oblique presentation with good FM and FB present. Anterior placenta, and adequate AF estimate. She is prepared to do glucola and labs next visit not today. Discussed Tdap for 28 weeks also. Having girl. She will check into pedi choices. O positive. Flowsheet Date 06/06/2021 Fisher Score Blood Edema Fundus Height Fundus Units Glucose Ketones Leukocytes Nitrite Labor Signs Protein Cervic Dilation Cervic Effacement Cervic Station neg 28 cm none none Negative neg Type Weight in lbs Pre/Post Dialysis Refused Weight 167.181286949960 BP Diastolic BP Location Tested BP Systolic BP Type 74 116 Fetus Heart Rate Present A 155 Fetus Movement A Yes Comments met FOB=he is a hydrometeorological technician in [place]=he will check his TDAP status and re-vaccinate if due; pt had TDAP+3rd trimester labs today Flowsheet Date 06/20/2021 Fisher Score Blood Edema Fundus Height Fundus Units Glucose Ketones Leukocytes Nitrite Labor Signs Protein Cervic Dilation Cervic Effacement Cervic Station 29 cm none negative none neg Type Weight in lbs Pre/Post Dialysis Refused Weight 168.830426224906 BP Diastolic BP Location Tested BP Systolic BP Type 60 110 Fetus Heart Rate Present A 150 Present Fetus Movement A Yes Comments Doing well. Good FM. To call with PTL/labor, decreased FM, ROM, and/or any problems/questions. Flowsheet Date 07/07/2021 Fisher Score Blood Edema Fundus Height Fundus Units Glucose Ketones Leukocytes Nitrite Labor Signs Protein Cervic Dilation Cervic Effacement Cervic Station neg 32 cm none negative none neg Type Weight in lbs Pre/Post Dialysis Refused Weight 170.500713256830 BP Diastolic BP Location Tested BP Systolic BP Type 70 116 Fetus Heart Rate Present A Present Fetus Movement A Yes Comments Flowsheet Date 07/22/2021 Fisher Score Blood Edema Fundus Height Fundus Units Glucose Ketones Leukocytes Nitrite Labor Signs Protein Cervic Dilation Cervic Effacement Cervic Station none 33 cm Type Weight in lbs Pre/Post Dialysis Refused Weight 171.364016443523 BP Diastolic BP Location Tested BP Systolic BP Type 78 122 Fetus Heart Rate Present A 145 Fetus Movement A Yes Comments Doing ok. Very emotional as just testing pos for covid. They are both vaccinated. She tested negative. Will call us if she tests again and is positive. RTO 2 weeks for OB visit, GBS. Reviewed labor/rom/decreased Fm and VB precautions Flowsheet Date 08/01/2021 Fisher Score Blood Edema Fundus Height Fundus Units Glucose Ketones Leukocytes Nitrite Labor Signs Protein Cervic Dilation Cervic Effacement Cervic Station 36 cm none negative neg Type Weight in lbs Pre/Post Dialysis Refused Weight 171.892411473444 BP Diastolic BP Location Tested BP Systolic BP Type 68 116 Fetus Heart Rate Present A 145 Fetus Movement A Yes Comments Doing well. Good FM. GBS don e and sent. RTO 1 wk Flowsheet Date 08/10/2021 Fisher Score Blood Edema Fundus Height Fundus Units Glucose Ketones Leukocytes Nitrite Labor Signs Protein Cervic Dilation Cervic Effacement Cervic Station none 37 cm none negative neg 0cm 50% - 3 Type Weight in lbs Pre/Post Dialysis Refused Weight 173.195039096368 BP Diastolic BP Location Tested BP Systolic BP Type 68 118 Fetus Heart Rate Present A 140 Fetus Movement A Yes Comments Doing well. Good FM. occ ctx . RTO 1 wk Flowsheet Date 08/15/2021 Fisher Score Blood Edema Fundus Height Fundus Units Glucose Ketones Leukocytes Nitrite Labor Signs Protein Cervic Dilation Cervic Effacement Cervic Station none 37 cm none negative neg 0cm 50% - 2 Type Weight in lbs Pre/Post Dialysis Refused Weight 174.34219539468 BP Diastolic BP Location Tested BP Systolic BP Type 64 118 Fetus Heart Rate Present A 140 Present Fetus Movement A Yes Comments DOing well. Baby active. Sto pping work next week. Reviewed labor Flowsheet Date 08/22/2021 Fisher Score Blood Edema Fundus Height Fundus Units Glucose Ketones Leukocytes Nitrite Labor Signs Protein Cervic Dilation Cervic Effacement Cervic Station 37 cm none negative neg 1cm 70% - 2 Type Weight in lbs Pre/Post Dialysis Refused Weight 175.813590918952 BP Diastolic BP Location Tested BP Systolic BP Type 70 120 Fetus Heart Rate Present A 160 Fetus Movement A Yes Comments Doing well. Labor, srom, dec FM precautions rvw'd w/ pt. 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 RTo 1wk. Flowsheet Date 08/25/2021 Fisher Score Blood Edema Fundus Height Fundus Units Glucose Ketones Leukocytes Nitrite Labor Signs Protein Cervic Dilation Cervic Effacement Cervic Station 2cm 70% -3 Type Weight in lbs Pre/Post Dialysis Refused Weight 177.046155777892 BP Diastolic BP Location Tested BP Systolic BP Type 80 128 Fetus Heart Rate Present Fetus Movement Comments Problem visit: Here for f/u JEOVANNY from the hospital. Was having some moisture on pad which prompted her visit to L&D, was ruled out for rupture, JEOVANNY normal but did have some watery fields discharge on exam. Here JEOVANNY 8 w/ 2x2 pocket. BPP 8/8. Spec: small amount of brown watery speckled discharge, amnio neg, no pooling, no ferning. Pt disccharged w/ strict ROM precautions. Flowsheet Date 08/29/2021 Fisher Score Blood Edema Fundus Height Fundus Units Glucose Ketones Leukocytes Nitrite Labor Signs Protein Cervic Dilation Cervic Effacement Cervic Station neg none 38 cm none none Negative 2cm 70% - 2 Type Weight in lbs Pre/Post Dialysis Refused Weight [id number] BP Diastolic BP Location Tested BP Systolic BP Type 80 124 Fetus Heart Rate Present A 135 Fetus Movement Comments Reports no further LOF or bl eeding. Unsure if she is feeling AFM, will do kick count if and if <6 movements in next hour will report to L&D. PD NST scheduled for 08/31 and PD IOL requested for 09/04/21 PM. Fisher score 5, will plan ripening but if cervix becomes more favorable at next visits can move to AM appt. Flowsheet Date 08/30/2021 Fisher Score Blood Edema Fundus Height Fundus Units Glucose Ketones Leukocytes Nitrite Labor Signs Protein Cervic Dilation Cervic Effacement Cervic Station neg none none Negative neg Type Weight in lbs Pre/Post Dialysis Refused Weight [id number] BP Diastolic BP Location Tested BP Systolic BP Type Fetus Heart Rate Present Fetus Movement Comments here for labor check. W crystal up feeling horrible this morning with back pain, cold sweats and intense pelvic pressure. Not sure if she is feeling discrete contractions. NST here tachy to 180's with variable decels, rare contractions. No CVA tenderness. Pt sent directly to L&D. Dr. Wisdom aware. Menstrual History Last Menstrual Date Menses Monthly On Bcp Conception Prior Menses Frequency Hcg Plus Date Menarche Onset Age 0111/23/2020 Delivery Information Delivery Date Delivery Type Labor Anesthesia Weeks Gestation Incision Type Labor Labor Length Hrs Delivered By Post Complications Tubal Sterilization Discharge Date Comments 1 Induce d 40 false None 09/01/2021 Discharge Information Feeding Method Contraceptive Method Maternal HG B and HCT Levels Combination
[2025-09-24 11:19] VITALS: BMI 45.5
[2025-10-06] VITALS (12 sets, daily range): BP systolic 130–167; BP diastolic 79–98; PULSE 75–98; RESP 12–20; TEMP 36.1–37.1; O2SAT 93–100; BMI 43.7
[2025-10-06] MEDS: Aprepitant 32 MG/4.4 ML VIAL IVPUSH (09:31)
[2025-10-06] MEDS: Lactated Ringers 1,000 ML 999 ML IV (09:31)
[2025-10-06 09:47] LABS: UPreg QC Valid YES
--- NOTE | 2025-10-06 11:14 | MHC.SHP ---
Pre-Procedural Eval Section A - 24 Hr Update-Section A only Date of Service: 10/06/25 The patient is an INPATIENT: No The patient has been examined within 24 hours of the surgical procedure. The History & Physical has been completed within 30 days and I have reviewed it.: Yes Section B - Complete if H&P > 30 days Chief Complaint: Morbid (severe) obesity due to excess calories Relevant Family History (Specify if Yes): No Relevant Social History: None Present Medications: None Medical History: No relevant PMH History of Previous Operations: No relevant previous surgery Allergies: Allergies Allergy/AdvReac Type Severity Reaction Status Date / Time No Known Allergies (No Known Allergy Verified 09/24/25 11:18 Allergies*) Review of Systems Sugical H&P ROS: Negative: Constitution, Cardiovascular, Respiratory, Neurological, Psychiatric, Hem-Onc, Allergic/Immunologic, Gastrointestinal, Genitourinary, Musculoskeletal, Integumentary, Endocrine and Eyes/Ears/Nose/Throat Exam Surgical H&P Exam: Normal: HEENT, Normal: Heart, Normal: Lungs, Normal: Extremities, Normal: Abdomen, Normal: Skin and Normal: Neurological Plan Diagnosis/Plan: Unchanged I have reviewed the history and physical and performed a pertinent physical examination on my patient. No changes have occurred unless specified. Time Spent With Patient Time: Total time managing care of this patient today ____ minutes.
--- NOTE | 2025-10-06 11:15 | PM.OP ---
Brief Operative Note Date of Service: 10/06/25 Pre-op diagnosis: Morbid obesity with comorbidities (see below) Post-op diagnosis: same Procedure: INITIAL PATIENT BMI ON PRESENTATION AT OUR OFFICE: 49.7 kg/m2 LAST BMI BEFORE SURGERY: 44 kg/m2 COMORBIDITIES: asthma, DJD, liver steatosis ?The patient presented to the Weight Management Program with significant obesity that was negatively impacting the patient's comorbidities as listed above.? The program is a phased program with a special focus on preoperative medical weight management to promote substantial weight loss and prepare the patients for the second phase of the program: bariatric surgery. The patient participated in an intensive weekly lifestyle ?intervention and exercise program during which the patient ?has lost between the initial office visit and the last preoperative visit 36.8 lbs, or 12% of initial actual body weight. It was deemed appropriate for the patient to now have bariatric surgery. In light of the current Covid-19 pandemic and the well documented strong association of obesity and increased risk of worse outcomes if infected with Covid-19 (REFERENCES:https://pubmed.ncbi.nlm.nih.gov/91954592/,?https://pubmed.ncbi.nlm.nih.gov/51941223/), any delay in undergoing bariatric surgery may lead to the patient's worsening health condition and increased?risk of more severe Covid-19 disease if infected. In addition a recent?study from [facility] published in [employer] Surgery on 11/07/2021 ([email or web address]) found that, among patients with obesity, substantial weight loss achieved with surgery was associated with improved outcomes of COVID-19 infection. The findings suggest that obesity can be a modifiable risk factor for the severity of COVID-19 infection. In addition, the patient met the BMI-criteria for bariatric surgery based on the BMI on initial presentation. The patient should not be penalized for achieving such weight loss because ?it is not sustainable long-term without surgical intervention and it was achieved in preparation for bariatric surgery ?under my direction and based on my published research ([email or web address]).[email or web address] and?https://www.soard.org/article/[email or web address])35825-X/pdf) ?that a 10% preoperative weight loss improves long-term weight loss after surgery and reduces perioperative complications.? Insurance carriers such as [facility] have endorsed my recommendations ?and have included in their policies criteria to include a 10% preoperative weight loss requirement. PROCEDURE: Esophago-gastroscopy, laparoscopic lysis of adhesions, laparoscopic sleeve gastrectomy and laparoscopic gastropexy INDICATIONS: This is a 30 year-old female who was electively scheduled for laparoscopic, possibly open sleeve gastrectomy. The risks and complications of the procedure were discussed with the patient in advance, particularly the possibility of ; pulmonary embolism; staple line leak; bleeding; GERD; cardiac, pulmonary, or renal complications; as well as long-term problems such as insufficient weight loss, vitamin deficiency, strictures, or ulcers. The patient understood all the risks, and was in agreement to proceed with surgery. DESCRIPTION OF PROCEDURE: After informed consent was obtained from the patient, the patient was given preoperative antibiotics, and was transferred to the operating room. After successful induction of general anesthesia, pneumatic compression devices were placed on both lower extremities. An upper endoscopy was performed next. The oropharynx and esophagus appeared to be within normal limits. There was no diaphragmatic hernia present. The stomach was entered. Then after all fluid and air were suctioned and the stomach was fully decompressed, the scope was withdrawn and secured in the mid esophagus. The patient was then prepped and draped in the usual sterile manner, and abdominal access was established at the right upper quadrant with the Annie technique. A 12 mm blunt port was inserted, and the abdomen was insufflated with CO2 to a pressure of 15 mmHg. Under direct visualization, additional ports were placed, specifically two 5 mm Versi-step ports to the left upper quadrant, and a 5 mm Versi-Step port to the right upper quadrant. 1% lidocaine plain was used to infiltrate all port sites as well as all fascia defects. Following that, the patient was placed in a steep reverse Trendelenburg position. An additional 5 mm port was placed to the right flank for the Mediflex retractor that was used to retract the left lobe of the liver. The gastro-esophageal fat pad was opened with the ultrasonic device (Thranderbeat, Olympus) and the anterior esophagus and hiatus were exposed. The angle of His was opened with the ultrasonic device the fundus of the stomach from any diaphragmatic and splenic attachments. I then opened the gastrocolic ligament between the transverse colon and the greater curvature of the stomach with the ultrasonic device to enter the lesser sac and facilitate the ligation of the short gastric vessels. I started at a mid-point along the greater curvature and using the Thunderbeat, all short gastric vessels were divided all the way to the angle of His until the left chilango was completely dissected at its entirety. I then divided the gastro-colic ligament distally to a distance of about 3-4 cm proximal to the pylorus. There were extensive congenital adhesions between the pancreas and posterior gastric wall. Those were lysed completely with the ultrasonic device. Adhesiolysis took approximately 45 min to complete. The stomach was then divided transversely with three Endo DAWOOD-45 purple and three DAWOOD-60 articulating purple loads using the [employer] stapler and loads. Every effort was made that the gastric sleeve had a tubular shape and an even caliber throughout. Once the sleeve resection was completed, the staple line of the gastric sleeve was reinforced with Hemoclips. The resected stomach was retrieved without difficulty from the Annie port. A gastropexy was then performed in order to prevent postoperative GERD and partial gastric volvulus. Several interrupted 2.0 Surgidac sutures were placed between the sleeve's staple line and the previously divided greater omentum and gastro-colic ligament using the Endo-Stitch device. ?An upper endoscopy was performed. There was no narrowing at the GE junction. The scope was easily advanced all the way to the pylorus which was clearly visualized. There was no narrowing anywhere and the sleeve's caliber was even throughout. The sleeve's staple line was inspected and there was no evidence of ischemia, bleeding or dehiscence. At that point the gastroscope was withdrawn from the patient?s mouth while we were decompressing the bowel and the stomach from any remaining air. I looked into the lesser sac to see how the sleeve was situating and it was situating well. There was no bleeding from the staple line, spleen, or short gastric vessels. The Mediflex retractor was removed, and the undersurface of the liver was inspected and there was no bleeding. The patient was placed in supine position. I closed the fascial defect of the 12 mm port site with a figure of eight #1 Polysorb suture. Then 30cc Ropivacaine plain with 10 mg of Dexamethasone were used to infiltrate the fascial closure as well as all skin incisions. At this point, the abdomen was deflated, all ports were removed under direct vision, and no bleeding was noted from any of the port sites. The skin incisions were irrigated with saline and were closed with 4-0 absorbable monofilament sutures. Steri-Strips and OpSites were used to cover all incisions. The patient was extubated and was transferred in stable condition to the recovery room for further care. I was present and performed all hauser parts of the procedure. Ms. Duron was the first grade teacher and Ms. Jaeger the second. There were no residents to assist with this case. Ankur Robb MD, PhD, FACS Surgeon: Doron Robb MD Anesthesia: GETA, local and other (TAP block) Was an Python Web Developer used for this Procedure?: No Python Web Developer: Terri Duron Estimated blood loss (mL): 10 IV fluids (mL): 2,000 Urine output (mL): 0 (No Carrera to record output) Pathology: other (1) Stomach) Condition: stable Disposition: PACU
[2025-10-06] MEDS: Lactated Ringers 1,000 ML 100 ML IVCONT ×2 (11:18→15:29)
--- NOTE | 2025-10-06 11:18 | PC.NURSE ---
one liter fluid in preop
--- NOTE | 2025-10-06 11:19 | P.PNGS_ITS ---
Subjective Subjective Date of Service: 10/07/25 Interval history: Feels well. Mild incisional pain. She is tolerating phase 1 bariatric diet Physical Exam 2 Vital Signs: Vital Signs: Last Vital Signs Temp 98.5 F 10/06/25 09:04 Pulse 75 10/06/25 09:04 Resp 20 10/06/25 09:04 BP 130/84 10/06/25 09:04 Pulse Ox 97 10/06/25 09:04 O2 Del Method Room Air 10/06/25 09:04 BMI result Body Mass Index 43.7 GI: Inspection: Yes normal to inspection and Yes incision (clean, dry and intact) Palpation (GI): Soft to palpation Extrem: Right lower extremity: normal to inspection (no calf tenderness) L eft lower extremity: normal to inspection (no calf tenderness) Objective Data Active Medications Lactated Ringer's (Lr) 1,000 mls @ 100 mls/hr IVCONT .Q10H CHRIS Stop: 10/06/25 13:14 Last Admin: 10/06/25 11:18 Dose: 100 mls/hr Documented By: CHERIE Labs 10/07/25 05:20 10/07/25 05:20 Labs: Laboratory Results - last 24 hr 10/06/25 09:02 Urine Test NEGATIVE Procedures Date of Service Date of Service: 10/07/25 Progress Note: A&P Assessment and plan (1) Morbid obesity: Status: Acute Assessment and Plan: s/p laparoscopic sleeve gastrectomy, lysis of adhesions and gastropexy Doing well Will check am labs and if OK the patient will be discharged home (2) DJD (degenerative joint disease): Status: Acute (3) Asthma: Status: Acute (4) Steatosis, liver: Status: Acute (5) S/P laparoscopic sleeve gastrectomy: Status: Acute (6) Congenital intra-abdominal adhesions: Status: Acute Time Spent With Patient Time: Total time managing care of this patient today ____ minutes. Quality Stroke Does the patient have a stroke diagnosis?: No VTE Prior VTE?: No VTE Risk Level:: Surgical - moderate VTE Device Contraindication: N/A - Device Ordered VTE Drug Contraindication: Treatment Not Indicated
--- NOTE | 2025-10-06 11:41 | HO.ANESPROP2 ---
Documented by User: Nichole Blue NP 10/01/25 13:09 HPI - Anesthesia Eval Consult details Narrative: 30yo F for Gastrectomy Sleeve,EGD,possible Diaphragmatic Hernia,possible Ventral Hernia,possible Open BMI 45 PMFSH Active Problems Active Problems: All Active Problems Vitamin B1 deficiency (Acute) Osteoarthritis of right knee (Acute) Elevated AST (SGOT) (Acute) Vitamin D deficiency (Acute) Low serum HDL (Acute) Elevated WBC count (Acute) Tear of medial meniscus of right knee (Acute) Left knee pain (Acute) Lumbosacral spondylosis (Acute) Effusion, right knee (Acute) Other intervertebral disc degeneration, thoracolumbar region (Acute) Decreased hearing of both ears (Acute) UTI (urinary tract infection) (Acute) Annual physical exam (Acute) Right knee pain (Acute) Asthma (Acute) DJD (degenerative joint disease) (Acute) Morbid obesity (Acute) Morbid obesity with BMI of 45.0-49.9, adult (Acute) Past Medical History Medical History Decreased hearing of both ears Osteoarthritis Asthma DJD (degenerative joint disease) Morbid obesity Morbid obesity with BMI of 45.0-49.9, adult Family History Family History Father Allergies Mother Diabetes Other Family history non-contributory Surgical History Surgical History No pertinent past surgical history History of Problems with Anesthesia: No Social History Social History (Updated 09/24/25 @ 11:19 by Sarah Lepe RN) Household Members: Spouse and Family Housing: Apartment Are you a primary childbirth and infant care teacher to a significant other at home: No Do you presently have visiting nurse or other home services: No Alcohol intake: never Patient Tobacco Use Status: Former Tobacco user Tobacco use type: Cigarette Years Smoked: 13 e-Cigarette/Vaping Use: Currently Using Frequency of e-Cigarette/Vaping Use: daily Second Hand Smoke Exposure: No Use of substances other than those prescribed or required for medical reasons: No Have you been hit, kicked, punched, or otherwise hurt by someone within the past year? 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 [employer] Cognitive needs: No Hearing needs: No Vision needs: Yes (Glasses) Meds Allergies Allergy/AdvReac Type Severity Reaction Status Date / Time No Known Allergies (No Known Allergy Verified 09/24/25 11:18 Allergies*) Home Medications ?Medication ?Instructions ?Recorded ?Confirmed ?Last Taken ?Type omega-3 fatty acids 1,200 mg PO DAILY 06/19/25 09/24/25 10/05/25 History Exam Height,Weight and Vital Signs: Height 5 ft 6 in Weight 127.913 kg Pertinent Lab Results Pertinent Lab Results: Laboratory Tests 09/26/25 09:11 Blood Type A Positive Antibody Screen NEGATIVE Laboratory Tests 09/26/25 09:19 WBC 10.3 Hgb 13.5 Hct 42.0 Plt Count 368 Sodium 143 Potassium 4.1 Chloride 107 Carbon Dioxide 25 BUN 16 Creatinine 0.88 Narrative Narrative: EKG 05/2025 Vent. Rate : 59 BPM Atrial Rate : 59 BPM P-R Int : 168 ms QRS Dur : 90 ms QT Int : 422 ms P-R-T Axes : 8 67 39 degrees QTcB Int : 417 ms Sinus bradycardia with sinus arrhythmia Otherwise normal ECG When compared with ECG of 02-Nov-2022 14:24, No significant change was found Assessment and Plan Assessment Anesthesia Assessment: Chart Reviewed Final Anesthetic Review History of Problems with Anesthesia: No Documented by User: Aliyah Gomez DO 10/06/25 11:43 HPI - Anesthesia Eval Consult details Narrative: 30yo F for Gastrectomy Sleeve,EGD,possible Diaphragmatic Hernia,possible Ventral Hernia,possible Open BMI 43 PMFSH Past Medical History Medical History Decreased hearing of both ears Osteoarthritis Asthma DJD (degenerative joint disease) Morbid obesity Morbid obesity with BMI of 45.0-49.9, adult Family History Family History Father Allergies Mother Diabetes Other Family history non-contributory Family history of problems with anesthesia: No Surgical History Surgical History No pertinent past surgical history History of Problems with Anesthesia: No Social History Social History (Updated 09/24/25 @ 11:19 by Sarah Lepe RN) Household Members: Spouse and Family Housing: Apartment Are you a primary childbirth and infant care teacher to a significant other at home: No Do you presently have visiting nurse or other home services: No Alcohol intake: never Patient Tobacco Use Status: Former Tobacco user Tobacco use type: Cigarette Years Smoked: 13 e-Cigarette/Vaping Use: Currently Using Frequency of e-Cigarette/Vaping Use: daily Second Hand Smoke Exposure: No Use of substances other than those prescribed or required for medical reasons: No Have you been hit, kicked, punched, or otherwise hurt by someone within the past year? 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 [employer] Cognitive needs: No Hearing needs: No Vision needs: Yes (Glasses) Meds Allergies Allergy/AdvReac Type Severity Reaction Status Date / Time No Known Allergies (No Known Allergy Verified 09/24/25 11:18 Allergies*) Home Medications ?Medication ?Instructions ?Recorded ?Confirmed ?Last Taken ?Type omega-3 fatty acids 1,200 mg PO DAILY 06/19/25 09/24/25 10/05/25 History Exam Exam Date and Time: 10/06/25 1140 Height,Weight and Vital Signs: Height 5 ft 6 in Weight 127.913 kg Height 5 ft 6 in Weight 122.833 kg Vital Signs Temperature 98.5 F 10/06/25 09:04 Pulse Rate 75 10/06/25 09:04 Respiratory Rate 20 10/06/25 09:04 Blood Pressure 130/84 10/06/25 09:04 Pulse Oximetry 97 10/06/25 09:04 Oxygen Delivery Method Room Air 10/06/25 09:04 Temperature 98.5 F 10/06/25 09:04 Pulse Rate 75 10/06/25 09:04 Respiratory Rate 20 10/06/25 09:04 Blood Pressure 130/84 10/06/25 09:04 Pulse Oximetry 97 10/06/25 09:04 Oxygen Delivery Method Room Air 10/06/25 09:04 Airway Mallampati Class: I TM Dist: >3cm Neck ROM: Full Loose/Missing/Broken Teeth: No (patient denies any loose or broken teeth) Heart: S1S2 Lungs: CTAB Assessment and Plan Assessment Anesthesia Assessment: Anesthesia Plan Discussed and Chart Reviewed Final Anesthetic Review Family History of Problems with Anesthesia: No History of Problems with Anesthesia: No NPO: Yes ASA Class: III Final Preanesthetic Review: No Changes in Pt Med Stat, Meds/Allgs Chart Reviewed, Consent Obtained/Reviewed and Anes Risks/Benef Reviewed Patient Risk: Intermediate Procedure Risk: Intermediate Anesthetic Plan Anesthetic Plan: GA and Agree w/ Assess. and Plan Disposition: Standard PACU
--- NOTE | 2025-10-06 14:24 | P.DS_ITS ---
DS: Providers Provider Date of Service: 10/06/25 Date of discharge: 10/07/25 Primary care physician: CRISSY Casey DS: Diagnosis Discharge Diagnosis (1) Morbid obesity: Status: Acute (2) DJD (degenerative joint disease): Status: Acute (3) Asthma: Status: Acute (4) Steatosis, liver: Status: Acute DS: Summary Hospital Course Hospital Course: ADMITTING DIAGNOSIS: morbid obesity DISCHARGE DIAGNOSIS: same, s/p laparoscopic sleeve gastrectomy and gastropexy PAST HISTORY:? Medical History Decreased hearing of both ears Osteoarthritis Asthma DJD (degenerative joint disease) Morbid obesity Morbid obesity with BMI of 45.0-49.9, adult Surgical History No pertinent past surgical history PROCEDURE: upper endoscopy, laparoscopic sleeve gastrectomy and gastropexy DISCHARGE SUMMARY: History of Present Illness: The patient is a?30 year-old woman with a BMI of?43.7 kg/m2 and associated co- morbidities as described above. The patient had extensive work-up, lost 36.8 lbs preoperatively and was electively scheduled for laparoscopic, possible open sleeve gastrectomy and gastropexy. Risks and complications of the surgery were discussed with the patient in advance, particularly the possibility of , pulmonary embolism, anastomotic leak, bleeding, bowel injury, GERD, cardiac, renal or pulmonary complications. The patient understood all the risks and was in agreement with the surgical plan. Hospital Course: The patient underwent an uneventful laparoscopic sleeve gastrectomy with gastropexy on the day of admission. Postoperatively, the patient was transferred to the surgical floor. The patient received IV Acetaminophen and IV dilaudid for pain control. Patient was started on bariatric phase 1 diet POD #0. On postoperative day one, the patient was feeling well without nausea, vomiting, fevers, or tachycardia. The patient had some mild incisional pain and the abdomen was soft.? On the morning of postoperative day one, the patient was continued on 1 ounce of water or ice every half hour. During the day, the patient did fairly well, having some incisional pain, but able to ambulate adequately and to tolerate liquids well. Since the patient is doing well, we decided that the patient was ready to be discharged. The patient was given instructions to follow-up with me next week and to call my office for any fever over 101, persistent abdominal pain, nausea, vomiting, GERD, symptoms of DVT such as calf tenderness, or leg swelling, or pulmonary embolism such as chest pain or shortness of breath.? The patient was also instructed to drink 40-60 ounces of liquids per day using the 1-ounce cups. The patient had been given prescriptions for Tylenol for pain, Zofran prn for nausea, and pantoprazole and carafate previously. The patient was encouraged to ambulate and use the incentive spirometer. The patient was allowed to shower, but no baths, and encouraged to stay active at home. All of these instructions were given to the patient personally. All questions were answered and the patient understood all instructions, the instructions were also given to the patient in print. Time Attestation Discharge Coordination Time (in mins): 30 Quality: Safe Use of Opioids Does Pt have an Active Cancer Diagnosis on the Problem List?: No Quality: Stroke Does the patient have a stroke diagnosis?: No Physical Exam Vital Signs: Vital Signs: Last Vital Signs Temp 98.7 F 10/06/25 14:12 Pulse 88 10/06/25 14:17 Resp 16 10/06/25 14:17 BP 157/98 H 10/06/25 14:17 Pulse Ox 100 10/06/25 14:17 O2 Del Method Simple Mask 10/06/25 14:17 O2 Flow Rate 6 10/06/25 14:17 BMI result Body Mass Index 43.7 DS: Data Data Completed and Pending Pending studies at discharge: Pending at discharge 10/06/25 13:27 Surgical [PTH] Routine Labs on day of discharge: Laboratory Results - last 24 hr 10/06/25 09:02 Urine Test NEGATIVE Discharge Plan Discharge Patient Disposition: Home, Self-Care Referrals: Car Ruiz FNP-C [Primary Care Provider, Internal Medicine] - 1 Week Discharge Medications: Continued albuterol sulfate 90 mcg/actuation aerosol powdr breath activated 2 inh inhalation Q4-6H PRN (Reason: shortness of breath or wheezing) Qty: 1 0RF pantoprazole 40 mg tablet,delayed release (DR/EC) 40 mg PO DAILY Qty: 90 0RF Discontinued thiamine HCl (vitamin B1) 100 mg tablet 100 mg PO DAILY Qty: 90 0RF Fish Oil Capsule 1,200 mg PO DAILY cholecalciferol (vitamin D3) 25 mcg (1,000 unit) capsule 25 mcg PO DAILY Qty: 90 2RF No Action thiamine HCl (vitamin B1) [Vitamin B-1] 100 mg Tablet 100 mg PO DAILY cholecalciferol (vitamin D3) [Vitamin D3] 25 mcg (1,000 unit) Tablet 25 mcg PO DAILY omega 8-gew-ucf-fish oil [Fish Oil] 1,200 (144-216) mg Capsule 1 cap PO DAILY Discharge Orders: Discharge Order (Routine); Ordered 10/07/25 Ordered By: Doron Robb Activity on Discharge: No heavy lifting Activity Restrictions/Additional Instructions: Discharge Instructions: You may shower the day after discharge. No tub baths, sex or returning to work until discussed at first post op appointment. No alcohol, tobacco, or illegal drug use. Continue to use incentive spirometer hourly while awake. Walk in home for 5-10 minutes every 2 hours during the first week. Wear abdominal binder with activity. Activity: limit stair climbing, no bending, no heavy lifting, no driving, no exercise, no work. No lifting > 10 lbs x6 weeks post op. No driving within 24 hours of taking narcotic pain medications. Follow all meal plan instructions from your bariatric surgeon. Do not advance diet until approved by surgeon. Review bariatric handbook and call with any questions. If you do not move your bowels in the next 2 days, please take milk of magnesia over the counter. Dressing Change/Wound Care: Your incisions are covered with waterproof dressings. You can shower with these and pat dry. Do not rub over dressings or incisions. If the area is tender, you may apply an ice pack for short intervals (no more than 20 minutes on, followed by at least 20 minutes off). Do not apply heat. Do not use creams, lotions, or topical antibiotics unless instructed to do so by your surgeon. Do not hesitate to contact the office with any questions at or concerns such as: - Temperature exceeds 101.5 F, fevers, chills - Excessive pain or swelling, abdominal pain - Unexpected reaction to medication - Excessive bleeding - Continued vomiting/nausea - Incision begins to separate - Signs of infection such as increased redness, swelling, excessive pain, heat, or drainage (light blood or clear fluid is normal) - Shortness of breath - Chest pain - Leg pain or swelling - Return to ER for any emergent symptoms General instructions: Please walk around your home every 1-2hrs to prevent blood clots from forming in your legs. You do not need to wake from sleeping to walk. Please sleep in a bed or couch to prevent kinking at the hips and knees. Please take your incentive spirometer (your lung airplane cleaner) home with you and use it for the next few days to prevent pneumonia. Please make sure you are consuming 40-60 ounces of total fluids per day. Avoid all carbonation. The patient's medical history has been reviewed and they are considered low risk for post op DVT and therefore DVT prophylaxis is not considered necessary. Travel after surgery was reviewed. The patient has not disclosed any travel plans during the first 30 days after surgery and they have been advised that within the first 30 days after surgery any bus, plane, train or car travel over 2 hours in duration is contraindicated due to the possibility of developing blood clots from immobility. Any travel, needs to include periods of ambulation of 10 minutes in duration every 2 hours.? The patient was instructed to discuss any plans for travel during this period with their bariatric surgeon. Follow up as scheduled in 1 week in office Print Language: Malaysian Discharge Date/Time: 10/07/25 11:46
[2025-10-06 14:55] LABS: Hematocrit 42.3 % (37.0-47.0); Hemoglobin 13.6 g/dl (12.0-16.0)
[2025-10-06 15:23] LABS: Anion Gap 14 (12-20); Blood Urea Nitrogen 12 mg/dL (9-16); Calcium 8.9 mg/dL (8.4-10.2); Carbon Dioxide 25 mmol/L (22-29); Chloride 105 mmol/L (96-108); Creatinine Clr Calc Pharmacy 114.8; Estimated Glomerular Filt Rate > 60; Potassium 4.5 mmol/L (3.3-5.1); Sodium 139 mmol/L (135-145)
--- NOTE | 2025-10-06 15:39 | PHA.MEDREC ---
Addendum entered by Devin Peres RPh 10/06/25 15:57: Med rec reviewed Original Note: Pharmacy Consult ? Medication Reconciliation Pharmacy has completed the medication reconciliation. Spoke with pt and pt partner at bedside and they were able to confirm pt medications. Pt taking Ondansertron and Sucralfate after she goes home from the surgery today.
[2025-10-06] MEDS: 0.9 % Sodium Chloride Flush 3 ML SYRINGE IVFLUSH (19:10)
[2025-10-07] VITALS: BP 130/82; PULSE 102; RESP 16; TEMP 36.3; O2SAT 96
[2025-10-07] MEDS: Lactated Ringers 1,000 ML 100 ML IVCONT ×2 (01:03→10:48)
[2025-10-07 03:08] VITALS: BP 132/82; PULSE 112; RESP 16; TEMP 36.3; O2SAT 97
[2025-10-07 03:55] VITALS: PULSE 100; O2SAT 99
[2025-10-07 05:48] LABS: MANUAL DIFF FLAG NO
[2025-10-07 05:56] LABS: Hematocrit 43.9 % (37.0-47.0); Hemoglobin 14.6 g/dl (12.0-16.0); Imm Gran Abs Auto 0.04 X10*3/uL (0.00-0.03); Imm Gran Pct Auto 0.3 % (0.0-0.4); Lymphocytes Absolute Auto 1.3 X10*3/uL (1.2-4.9); Mean Corpuscular HGB Conc 33.3 g/dl (31.0-35.0); Mean Corpuscular Hemoglobin 26.8 pg (27.0-33.0); Mean Corpuscular Volume 80.7 fL (80.0-98.0); NRBC Abs Auto 0.000 X10*3/uL (0.0-0.012); NRBC Pct Auto 0.0 /100WBC (0.0-0.2); Platelet Count 378 X10*3/uL (160-400); Red Blood Count 5.44 X10*6/uL (4.20-5.50); White Blood Count 13.0 X10*3/uL (4.8-10.8)
[2025-10-07 06:13] LABS: Anion Gap 17 (12-20); Blood Urea Nitrogen 9 mg/dL (9-16); Calcium 9.3 mg/dL (8.4-10.2); Carbon Dioxide 19 mmol/L (22-29); Chloride 106 mmol/L (96-108); Creatinine Clr Calc Pharmacy 133.3; Estimated Glomerular Filt Rate > 60; Potassium 4.1 mmol/L (3.3-5.1); Sodium 138 mmol/L (135-145)
[2025-10-07 07:12] VITALS: BP 144/84; PULSE 98; RESP 16; TEMP 36.1; O2SAT 100
--- NOTE | 2025-10-07 08:46 | MHC.CM.PN ---
pt dcd home self care prior to being seen by cm
--- NOTE | 2025-10-07 08:55 | HO.POSTANES ---
Post Anesthesia Evaluation Post Anesthesia Evaluation Date of Service: 10/07/25 Vital Signs: Vital Signs Temp Pulse Resp BP Pulse Ox O2 Del Method 10/07/25 07:12 97.0 F 98 16 144/84 H 100 Room Air 10/07/25 03:55 100 99 Room Air 10/07/25 03:08 97.4 F 112 H 16 132/82 97 Room Air 10/07/25 00:00 97.4 F 102 H 16 130/82 96 Room Air 10/06/25 21:12 98 145/79 H Anesthesia: General Mental Status: Awake Pain Control: Satisfactory Nausea/Vomiting: None Hydration: Adequate Anesthesia-Related Issues: No Anes. Related Issues
[2025-10-07 11:25] VITALS: BP 142/79; PULSE 92; RESP 16; TEMP 36.2; O2SAT 100
== END 2025-10-07 11:46 | disposition home or self-care (01) ==
LOC: HO.SSS 14:22 → HO.S3 14:30
PROVIDERS: Nurse Practitioner; Visit Provider Surgery
PROC: (CPT 43845; principal; 2025-10-06 11:30)
DX: E66.01 Morbid (severe) obesity due to excess calories (principal); Z68.41 Body mass index [BMI] 40.0-44.9, adult; Q43.3 Congenital malformations of intestinal fixation; K76.0 Fatty (change of) liver, not elsewhere classified; J45.909 Unspecified asthma, uncomplicated; M19.90 Unspecified osteoarthritis, unspecified site
CPT/HCPCS: 43775; 43659; 49329; 36415; 80048; 81025; 85014; 85018; 85025; 86850; 86900; 86901; 88304; 88305; 88307; 88342; A4649; C9145; J0131; J0690; J1100; J1171; J1308; J1630; J2003; J2405; J2704; J2765; J2795; J3010; J7120

== ENCOUNTER → 2025-10-06 08:50 | Outpatient (BNV) | payer OTHER, SELFPAY | PROVIDERS: Visit Provider Surgery | DX: E66.01 Morbid (severe) obesity due to excess calories (principal); Z68.41 Body mass index [BMI] 40.0-44.9, adult; Z98.84 Bariatric surgery status | CPT/HCPCS: 99024; 99499 ==

== ENCOUNTER 2025-10-13 11:11 | Outpatient (AMB) | payer OTHER, SELFPAY ==
--- NOTE | 2025-10-13 11:09 | MHC.WMTHER ---
Intake Intake Visit Reasons: VIDEO PO LSG 10/06/25 Allergies No Known Allergies (No Known Allergies*) Allergy (Verified 09/24/25 11:18) [facility] Medical History Decreased hearing of both ears Osteoarthritis Asthma DJD (degenerative joint disease) Morbid obesity Morbid obesity with BMI of 45.0-49.9, adult Surgical History No pertinent past surgical history Family History Father Allergies Mother Diabetes Other Family history non-contributory Social History (Updated 09/24/25 @ 11:19 by Sarah Lepe RN) Household Members: Significant Other Housing: Apartment Are you a primary palliative care nurse practitioner to a significant other at home: No Do you presently have visiting nurse or other home services: No Alcohol intake: never Patient Tobacco Use Status: Former Tobacco user Tobacco use type: Cigarette Years Smoked: 13 e-Cigarette/Vaping Use: Currently Using Second Hand Smoke Exposure: No service: No Current occupational status: employed 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 Her weight on the day of surgery was 270 lbs, and her current weight as of today is 257 lbs, reflecting a loss of 13 lbs post-operatively. She denies experiencing any pain or complications during her recovery and reports that she is tolerating the prescribed liquid diet without difficulty. The patient describes her mood as somewhat irritable but manageable. She identifies her family as her primary source of support during her recovery. She denies experiencing significant hunger but some intrusive thoughts about food. Objective: The patient presents for a behavioral health post-operative follow-up visit. A guided emotional check-in was conducted to assess her current functioning, recovery, mood, and emotional state. Psychoeducation was provided on the emotional and psychological adjustments commonly experienced after bariatric surgery. We also focused on distinguishing between hunger and cravings or food thoughts, exploring possible reasons for these experiences, and strategies to work on her mindset. Emphasis was placed on becoming mindful of her physical and mental needs during these times while staying on track. The PHQ-9 was administered to screen for symptoms of depression. The importance of adhering to the Weight Management Program (WMP) providers' instructions was emphasized, including the pace of drinking and following the meal and exercise plan. Tips and recommendations for long-term success were also discussed. Program resources were provided, and the patient was invited to join our Facebook group to stay informed about ongoing events and activities. Assessment/Response: Mental status: WNL Risk reported/identified: None Questionnaires PHQ-9 Over the last 2 weeks, how often have you been bothered by any of the following problems? 1. Little interest or pleasure in doing things: not at all 2. Feeling down, depressed, or hopeless: not at all 3. Trouble falling or staying asleep, or sleeping too much: several days 4. Feeling tired or having little energy: several days 5. Poor appetite or overeating: not at all 6. Feeling bad about yourself - or that you are a failure or have let yourself or your family down: not at all 7. Trouble concentrating on things, such as reading the newspaper or watching television: not at all 8. Moving or speaking so slowly that other people could have noticed. Or the opposite - being so fidgety or restless that you have been moving around a lot more than usual: not at all 9. Thoughts that you would be better off or of hurting yourself in some way: not at all Total score: 2 Depression Screening Interpretation: Negative Depression Screening Done: Yes 56953 - PHQ-9 Billing: Yes Source: Developed by Drs. Lior Chambers, Vandana Machado, Wale Saunders and colleagues, with an educational zaina from [employer]. Assessment & Plan Assessment & Plan (1) Adjustment disorder: Code(s): F43.20 - Adjustment disorder, unspecified Qualifiers: Adjustment disorder type: unspecified type Qualified Code(s): F43.20 - Adjustment disorder, unspecified (2) Status post bariatric surgery: Code(s): Z98.84 - Bariatric surgery status Plan No safety concerns or issues were identified that would necessitate behavioral health monitoring. The patient declined further visits but is aware of the available behavioral health support if needed in the future. Telehealth Telehealth Telehealth Platform: [facility] Location of provider rendering services: other (Home office. [address], [place]) Location of patient: other ([facility], [place] Patient Identification confirmed using: Name, : Yes Telehealth method: video Patient verbally consented to treatment: Yes Patient verbally consented to billing insurance company: Yes Patient informed of any privacy concerns related to visit: Yes Minutes spent on Phone/Video with Pt.: 30 Coding [place] [address] Tele Psytx 30 mins Patient Type Established Diagnoses Adjustment disorder, unspecified type F43.20 Adjustment disorder type: unspecified type Status post bariatric surgery Z98.84 Additional Codes PHQ-9 - 66613 - PHQ-9 Billing: Yes ([id number]) Time Spent (min) 30
== END 2025-10-13 11:35 | disposition home or self-care (01) ==
LOC: HO.HBST 11:11
PROVIDERS: Visit Provider Counselor Mental Health
DX: F43.20 Adjustment disorder, unspecified (principal); Z98.84 Bariatric surgery status
CPT/HCPCS: 90832

== ENCOUNTER 2025-10-19 15:57 | Outpatient (AMB) | payer OTHER, SELFPAY ==
--- OUTSIDE RECORDS SUMMARY | 2025-10-20 01:35 | XMS_ITS | Clinical Summary ---
Author Organization Formerly [facility] Address [address] [place] [id number] Care Team Providers Care Architect Naval Name Role Phone Jasmin Talbot APRN Primary [...] of 3 - 19+ 3-dose series) 2012 Pap Smear (Ages 21-65) 2014 Influenza Vaccine 06/12/2025 COVID-19 Vaccine ( - 2024-2 6 season) 2025 HPV Vaccines (No Doses Required) Completed Pneumococcal Vaccine: Pediat robbie (0-5 Years) and At-Risk Patients (6 to 49 Years) Aged Out No longer eligible b ased on patient's age to complete this topic Insurance [facility] Care Teams Architect Naval Relationship Specialty Start Date End Date Jasmin Talbot APRN [address] [place] [address] PCP - General Internal Medicine 03/16/22
--- OUTSIDE RECORDS SUMMARY | 2025-10-20 01:35 | XMS_ITS | Clinical Summary ---
Author Organization [facility] Prior to 04/11/25 Address [address] [place] [address] Care Team Providers Care Pattern Checker Name Role Phone Jasmin Talbot NP Primary [...] age to complete this topic Care Teams Pattern Checker Relationship Specialty Start Date End Date Jasmin Talbot NP [address] [place] [address] PCP - General Family Medicine 04/21/22
--- OUTSIDE RECORDS SUMMARY | 2025-10-20 01:35 | XMS_ITS | Clinical Summary ---
Author Organization [facility] Address [address] [place] [address] Care Team Providers Care Pest Control Technician Name Role Phone Jasmin Talbot SHAHBAZ [...] age to complete this topic Care Teams Pest Control Technician Relationship Specialty Start Date End Date Jasmin Talbot NP PCP - General Family Medicine 04/21/22
--- NOTE | 2025-10-20 11:32 | MHC.OFFVISWM ---
VS Expanded 10/20/25 11:37 BP 124/75 Pulse 77 Temp 97.5 F Height 5 ft 6 in Weight 257 lb 8 oz BMI 41.6 Body Fat % 54.2 Body Fat Mass 139.7 Fat Free Mass 118.2 Visceral Fat Rating 22 Body Water % 31.5 Body Water Mass 81.2 Basal Metabolic Rate/Score 1,526 Intake Visit Reasons: TV PO LSG 10/06/25 Allergies No Known Allergies (No Known Allergies*) Allergy (Verified 10/20/25 11:38) Medication List - Last Reconciled 10/20/25 by Doron Robb MD albuterol sulfate 90 mcg/actuation 2 inhalations inhalation Q4-6H PRN cholecalciferol (vitamin D3) (Vitamin D3) 25 mcg PO DAILY omega 5-vxx-jzj-fish oil 1,200 (144-216) mg (Fish Oil) 1 cap PO DAILY pantoprazole 40 mg PO DAILY thiamine HCl (vitamin B1) (Vitamin B-1) 100 mg PO DAILY HPI Comments Details: S/p LSG last week No nausea/vomiting/abdominal pain/fever. Tolerating 3 Fairlife shakes (4oz of Fairlife plus 4oz almond milk) PFSH Medical History Decreased hearing of both ears Osteoarthritis Asthma DJD (degenerative joint disease) Morbid obesity Morbid obesity with BMI of 45.0-49.9, adult Surgical History No pertinent past surgical history Family History Father Allergies Mother Diabetes Other Family history non-contributory Social History (Updated 09/24/25 @ 11:19 by Sarah Lepe RN) Household Members: Significant Other Housing: Apartment Are you a primary career discovery teacher to a significant other at home: No Do you presently have visiting nurse or other home services: No Alcohol intake: never Patient Tobacco Use Status: Former Tobacco user Tobacco use type: Cigarette Years Smoked: 13 e-Cigarette/Vaping Use: Currently Using Second Hand Smoke Exposure: No service: No Current occupational status: employed 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 Change nutritional plan to 3 8oz Fairlife shakes at 10-12, 2-4 and 6-8pm 2. Start exercising 3. Start the multivitamins 4. Update me weekly with weight measurements
[2025-10-20 11:37] VITALS: BP 124/75; PULSE 77; TEMP 36.4; BMI 41.6
== END 2025-10-20 11:42 | disposition home or self-care (01) ==
LOC: HO.HBS 15:57
PROVIDERS: Visit Provider Surgery
DX: Z98.84 Bariatric surgery status (principal)
CPT/HCPCS: 99024

== ENCOUNTER 2025-11-10 11:00 | Outpatient (AMB) | payer OTHER, SELFPAY ==
--- NOTE | 2025-11-10 11:05 | A.OFFWM_ITS ---
Intake Intake Visit Reasons: TV PO LSG 10/06/25 Allergies No Known Allergies (No Known Allergies*) Allergy (Verified 11/18/25 09:15) [facility] Medical History Decreased hearing of both ears Osteoarthritis Asthma DJD (degenerative joint disease) Morbid obesity Morbid obesity with BMI of 45.0-49.9, adult Surgical History No pertinent past surgical history Family History Father Allergies Mother Diabetes Other Family history non-contributory Social History Household Members: Significant Other Housing: Apartment Are you a primary career development facilitator to a significant other at home: No Do you presently have visiting nurse or other home services: No Alcohol intake: never Patient Tobacco Use Status: Former Tobacco user Tobacco use type: Cigarette Years Smoked: 13 e-Cigarette/Vaping Use: Currently Using Second Hand Smoke Exposure: No service: No Current occupational status: employed 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 She reports difficulty following her meal plan, limited intake (three protein bars and two tablespoons of scrambled eggs), and intolerance to shakes and bars, with concern about weight gain. Current weight reported as 254 lbs, reflecting a 1 lb loss. Client reports feeling disrespected and unsupported by current provider and would like to follow up with a different provider. She reports obtaining a gym membership last night. Objective: PT presents for a post-op felisa. CBT interventions focused on normalizing post-op adjustment, challenging self- critical thoughts, and reducing distress around weight and food tolerance. Behavioral activation strategies were discussed to support gradual routine building, including gentle re-engagement with physical activity. Stress management techniques and problem-solving around provider advocacy were used. Assessment/Response: Client presents with adjustment related anxiety and stress following surgery, compounded by perceived lack of support and dietary challenges. Client was receptive to interventions and demonstrated improved insight. * Mental status: Alert and oriented ?4; mood anxious/frustrated; affect congruent; judgment and insight intact. * Risk reported/identified:None. Denies SI/HI. Assessment & Plan Assessment & Plan (1) Adjustment disorder: Code(s): F43.20 - Adjustment disorder, unspecified (2) Status post bariatric surgery: Code(s): Z98.84 - Bariatric surgery status Plan Follow up in 1 week to continue CBT focused modality addressing post-operative adjustment. Provider will communicate updates to the care team and explore interim follow-up with Joshua to support continuity of care. * Next appointment:?November 20, 2025, at 10am, over the phone. Telehealth Telehealth Telehealth Platform: [facility] Location of provider rendering services: other (Home office. [place], [place]) Location of patient: address on file Patient Identification confirmed using: Name, : Yes Telehealth method: voice only Patient verbally consented to treatment: Yes Patient verbally consented to billing insurance company: Yes Patient informed of any privacy concerns related to visit: Yes Minutes spent on Phone/Video with Pt.: 45 [place] [id number] Tele Psytx 45 mins Patient Type Established Diagnoses Adjustment disorder F43.20 Status post bariatric surgery Z98.84 Time Spent (min) 45
--- OUTSIDE RECORDS SUMMARY | 2025-11-10 15:24 | XMS_ITS | Clinical Summary ---
Author Organization [facility] Prior to 04/11/25 Address [address] [place] [address] Care Team Providers Care At Risk Specialist Name Role Phone Jasmin Talbot NP Primary [...] age to complete this topic Care Teams At Risk Specialist Relationship Specialty Start Date End Date Jasmin Talbot NP [address] [place] [address] PCP - General Family Medicine 04/21/22
--- OUTSIDE RECORDS SUMMARY | 2025-11-10 15:24 | XMS_ITS | Clinical Summary ---
Author Organization [facility] Address [address] [place] [address] Care Team Providers Care Mold Laminator Name Role Phone Jasmin Talbot SHAHBAZ Primary [...] age to complete this topic Care Teams Mold Laminator Relationship Specialty Start Date End Date Jasmin Talbot NP PCP - General Family Medicine 04/21/22
== END 2025-11-10 11:49 | disposition home or self-care (01) ==
LOC: HO.HBST 11:21
PROVIDERS: Visit Provider Counselor Mental Health
DX: F43.20 Adjustment disorder, unspecified (principal); Z98.84 Bariatric surgery status
CPT/HCPCS: 90834